=== PATIENT | male | born 1980 | race Hispanic/Latino ===

== ENCOUNTER 2020-08-07 18:09 | Emergency (ER) | payer SELFPAY ==
--- NOTE | 2020-08-07 21:56 | ER ---
Nurse's Notes [facility] Name: Abiodun Lara Age: 40 yrs Sex: Male : 1980 Arrival Date: 08/07/2020 Time: 18:11 Bed External Waiting Private MD: Fantasma Mora R Diagnosis: Presentation: 08/07 18:46 Chief complaint: Patient states: L sided CP for 2 weeks. No cough or fever. Coronavirus ll1 screen: Client denies travel out of the [place] in the last 14 days. At this time, the client does not indicate any symptoms associated with coronavirus-19. Ebola Screen: Patient denies travel to an Ebola-affected area in the 21 days before illness onset. Initial Sepsis Screen: Does the patient meet any 2 criteria? HR > 90 bpm. No. Patient's initial sepsis screen is negative. Does the patient have a suspected source of infection? No. Patient's initial sepsis screen is negative. Risk Assessment: Do you want to hurt yourself or someone else? Patient reports no desire to harm self or others. Onset of symptoms was July 24, 2020. 18:46 Method Of Arrival: Ambulatory ll1 18:46 Acuity: CHENTE 3 ll1 Historical: - Allergies: 18:48 No Known Allergies; ll1 - PMHx: 18:48 chronic back pain; Hypertension; ll1 - PSHx: 18:48 None; ll1 - Immunization history:: Flu vaccine is not up to date. - Social history:: Smoking status: Patient reports the use of cigarette tobacco products, denies chronic smoking, but will smoke occasionally. Vital Signs: 18:46 BP 143 / 104; Pulse 93; Resp 17; Temp 97.8; Pulse Ox 99% ; Weight 86.18 kg; Height 5 ll1 ft. 11 in. (180.34 cm); 18:46 Body Mass Index 26.50 (86.18 kg, 180.34 cm) ll1 ED Course: 18:11 Patient arrived in ED. mr 18:11 Fantasma Mora MD is Private Physician. mr 18:47 Triage completed. ll1 18:48 Arm band placed on. EKG completed in triage. Results shown to MD. ll1 Administered Medications: No medications were administered Outcome: 21:56 Patient left the ED. sg Signatures: Rick Lundberg RN RN sg Derrek, Holly mr Giovana Simmons, RN RN ll1
[2020-08-07 22:25] VITALS: BP 143/104; TEMP 97.8; O2SAT 99
--- NOTE | 2020-08-09 07:05 | EKG ---
Test Date: 2020-08-07 Test Time: 18:42:44 Hammerer: DEJA MEASUREMENT RESULTS: Intervals: Rate: 81 [place]: 120 QRSD: 120 QT: 360 QTc: 418 [place]: P: 53 [place]: 120 QRS: 83 T: 41 INTERPRETIVE STATEMENTS: Normal sinus rhythm Cannot rule out Inferior infarct, age undetermined Abnormal ECG Compared to ECG 02/20/2016 00:49:09 Myocardial infarct finding now present Electronically Signed On 08-09-20 07:02:38 CDT by Molina Mitchell
== END 2020-08-07 21:56 | disposition left against medical advice (07) ==
LOC: ER 18:09
DX: R07.9 Chest pain, unspecified (principal); Z53.21 Procedure and treatment not carried out due to patient leaving prior to being seen by health care provider
CPT/HCPCS: 93005; 99281

== ENCOUNTER 2020-08-14 08:25 | Emergency (ER) | payer SELFPAY ==
[2020-08-14 09:33] LABS: Basophils % 0.7 % (0-1.3); Hematocrit 39.4 % (39.6-49.0); Lymphocytes % 15.3 % (15.3-44.8); MPV 9.4 fL (7.6-11.3); RBC Red Blood Cell Count 4.03 M/uL (4.33-5.43)
--- NOTE | 2020-08-14 09:34 | RAD REPORT ---
EXAM DESCRIPTION: RAD - Chest Single View - 08/14/2020 9:06 am CLINICAL HISTORY: CHEST PAIN COMPARISON: None TECHNIQUE: AP portable chest image was obtained 08/14/2020 9:06 am . FINDINGS: Lungs are clear. Heart and vasculature are normal. No measurable pleural effusion and no p neumothorax. No acute bony abnormality seen. No acute aortic findings suspected. IMPRESSION: No acute cardiopulmonary process.
[2020-08-14 09:35] LABS: Protime INR 0.88
[2020-08-14 09:36] LABS: ALT/SGPT 84 U/L (12-78); AST/SGOT 72 U/L (15-37); Albumin 4.3 g/dL (3.4-5.0); Alkaline Phosphatase 81 U/L (45-117); BUN Blood Urea Nitrogen 12 mg/dL (7-18); Bicarbonate 25 mmol/L (21-32); Bilirubin Direct 0.3 mg/dL (0-0.2); Bilirubin Total 1.1 mg/dL (0.2-1.0); Glucose Level 96 mg/dL (74-106); Magnesium 1.6 mg/dL (1.8-2.4); NT PRO-BNP 69 pg/mL (<125); Potassium 3.4 mmol/L (3.5-5.1); Protein, Total 7.6 g/dL (6.4-8.2); Sodium Level 136 mmol/L (136-145); Troponin (Emerg Dept Use Only) < 0.02 ng/mL (0.0-0.045)
[2020-08-14] MEDS ORDERED: LORazepam 2 MG/ML VIAL ONE (10:09)
--- NOTE | 2020-08-14 12:20 | ER ---
Nurse's Notes [facility] Name: Abiodun Lara Age: 40 yrs Sex: Male : 1980 Arrival Date: 08/14/2020 Time: 08:26 Bed 2 Private MD: Fantasma Mora R Diagnosis: Anxiety disorder, unspecified Presentation: 08/14 08:40 Chief complaint: Patient states: has been having mid sternal chest pains, wakes him up iw at night and he feels his heart racing, breaks out in sweats , X 1 week, every other night , last night was bad. Coronavirus screen: At this time, the client does not indicate any symptoms associated with coronavirus-19. Ebola Screen: Patient negative for fever greater than or equal to 101.5 degrees Fahrenheit, and additional compatible Ebola Virus Disease symptoms Patient denies exposure to infectious person. Patient denies travel to an Ebola-affected area in the 21 days before illness onset. No symptoms or risks identified at this time. Initial Sepsis Screen: Does the patient meet any 2 criteria? No. Patient's initial sepsis screen is negative. Does the patient have a suspected source of infection? No. Patient's initial sepsis screen is negative. Risk Assessment: Do you want to hurt yourself or someone else? Patient reports no desire to harm self or others. Onset of symptoms was August 07, 2020. 08:40 Method Of Arrival: Ambulatory iw 08:40 Acuity: CHENTE 3 iw Historical: - Allergies: 08:42 No Known Allergies; iw - Home Meds: 08:42 lisinopril 20 mg Oral tab 1 tab once daily [Active]; iw - PMHx: 08:42 chronic back pain; Hypertension; iw - PSHx: 08:42 None; iw - Immunization history:: Adult Immunizations Adult Immunizations not up to date. - Social history:: Smoking status: Patient denies any tobacco usage or history of. Patient/guardian denies using alcohol, street drugs, The patient lives with family. - Family history:: not pertinent. Screenin:12 Abuse screen: Denies threats or abuse. Denies injuries from another. Nutritional jl7 screening: No deficits noted. Tuberculosis screening: No symptoms or risk factors identified. Fall Risk IV access (20 points). Total Shepherd Fall Scale indicates No Risk (0-24 pts). Assessment: 08:45 General: Appears uncomfortable, Behavior is calm, cooperative. Pain: Complains of pain aa5 in mid-sternal area Pain does not radiate. Pain currently is 8 out of 10 on a pain scale. Quality of pain is described as sharp, Is continuous. Neuro: Level of Consciousness is awake, alert, obeys commands, Oriented to person, place, time, situation. Cardiovascular: Reports chest pain, palpitations, Heart tones S1 S2 present Rhythm is sinus rhythm. Respiratory: Airway is patent Respiratory effort is even, unlabored, Respiratory pattern is regular, symmetrical. GI: Abdomen is round non-distended. : No signs and/or symptoms were reported regarding the genitourinary system. EENT: No signs and/or symptoms were reported regarding the EENT system. Derm: Skin is pink, warm \T\ dry. Musculoskeletal: Range of motion: intact in all extremities. 09:56 Reassessment: Patient is alert, oriented x 3, equal unlabored respirations, skin aa5 warm/dry/pink. 09:56 Cardiovascular: Reports chest pain, palpitations. aa5 11:30 Reassessment: Patient is alert, oriented x 3, equal unlabored respirations, skin aa5 warm/dry/pink. Patient denies pain at this time. Patient states feeling better. 11:30 Cardiovascular: Rhythm is Sinus tach at 108bpm. aa5 Vital Signs: 08:40 BP 146 / 103; Pulse 97; Resp 16; Temp 98.4; Pulse Ox 100% on R/A; Weight 86.18 kg; iw Height 5 ft. 11 in. (180.34 cm); 09:00 BP 154 / 99; Pulse 93; Resp 17; Pulse Ox 100% ; aa5 10:16 BP 137 / 92; Pulse 95; Resp 16 S; Pulse Ox 99% on R/A; aa5 11:49 BP 134 / 93; Pulse 98; Resp 16 S; Pulse Ox 99% on R/A; aa5 08:40 Body Mass Index 26.50 (86.18 kg, 180.34 cm) iw ED Course: 08:26 Patient arrived in ED. am2 08:26 Fantasma Mora MD is Private Physician. am2 08:41 Triage completed. iw 08:42 Arm band placed on. iw 08:46 Lorenzo Brennan MD is Attending Physician. ma2 08:46 Lissette Martinez, RN is Primary Nurse. aa5 08:50 Patient has correct armband on for positive identification. Bed in low position. Call aa5 light in reach. Side rails up X2. teletypesetter monitor on. Pulse ox on. NIBP on. 09:02 X-ray completed. Portable x-ray completed in exam room. Patient tolerated procedure sw well. 09:04 XRAY Chest (1 view) In Process Unspecified. EDMS 09:15 Warm blanket given. sr5 09:15 Initial lab(s) drawn, by me, sent to lab. EKG done, by ED staff, reviewed by Lorenzo Brennan MD. Inserted saline lock: 20 gauge in right antecubital area, using aseptic technique. Blood collected. 10:12 Patient maintains SpO2 saturation greater than 95% on room air. jl7 12:41 No provider procedures requiring assistance completed. IV discontinued, intact, jl7 bleeding controlled, No redness/swelling at site. Pressure dressing applied. Administered Medications: 09:56 Drug: Ativan 1 mg Route: IVP; Site: right antecubital; jl7 11:30 Follow up: Response: Anxiety decreased aa5 Outcome: 12:19 Discharge ordered by . ma2 12:41 Discharged to home ambulatory. jl7 12:41 Condition: stable 12:41 Discharge instructions given to patient, Instructed on discharge instructions, follow up and referral plans. medication usage, Demonstrated understanding of instructions, follow-up care, medications, Prescriptions given X 1. 12:41 Patient left the ED. jl7 Signatures: Dispatcher [employer] EDAZ Madelin Lo RN RN Lissette Martinez, RN RN aa5 Irene Cool Sam RN RN sr5 Jie Galvan RN RN jl7 Lori Kuhn am2 Lorenzo Brennan MD MD ma2 Corrections: (The following items were deleted from the chart) 10:16 09:56 BP 154 / 99; Pulse 93bpm; Resp 17bpm; Pulse Ox 100%; jl7 aa5
--- NOTE | 2020-08-14 12:20 | EDPHYS ---
Physician Documentation [facility] Name: Abiodun Lara Age: 40 yrs Sex: Male : 1980 Arrival Date: 08/14/2020 Time: 08:26 Bed 2 Private MD: Fantasma Mora R ED Physician Lorenzo Brennan HPI: 08/14 09:57 This 40 yrs old Male presents to ER via Ambulatory with complaints of Chest ma2 Pain. 09:57 This 40 yrs old Male presents to ER via Ambulatory with complaints of episdos ma2 of sob. 09:57 Onset: gradually, 1 day(s) ago. Associated signs and symptoms: Pertinent negatives: ma2 cough, dizziness, lower extremity pain, lower extremity swelling. Severity of pain: At its worst the pain was moderate. this is 40 yo male with htn, smokes mj daily, alcohol daily and cocaine occasionally, he is here with anxiety and shortness of breath, he states he had chest pain 3 days ago with sob that was stabbing and lasts for few seconds. he has no symptoms at this time he states he has increased stress at home and work last 2 days, no chest pain in last 24 hrs... he never had cardiac issues. Historical: - Allergies: 08:42 No Known Allergies; iw - Home Meds: 08:42 lisinopril 20 mg Oral tab 1 tab once daily [Active]; iw - PMHx: 08:42 chronic back pain; Hypertension; iw - PSHx: 08:42 None; iw - Immunization history:: Adult Immunizations Adult Immunizations not up to date. - Social history:: Smoking status: Patient denies any tobacco usage or history of. Patient/guardian denies using alcohol, street drugs, The patient lives with family. - Family history:: not pertinent. ROS: 09:57 Constitutional: Negative for fever, chills, and weight loss. ma2 09:57 All other systems are negative. Exam: 09:57 Constitutional: This is a well developed, well nourished patient who is awake, alert, ma2 and in no acute distress. Neck: Trachea midline, no thyromegaly or masses palpated, and no cervical lymphadenopathy. Supple, full range of motion without nuchal rigidity, or vertebral point tenderness. No Meningismus. Chest/axilla: Normal chest wall appearance and motion. Nontender with no deformity. No lesions are appreciated. Cardiovascular: Regular rate and rhythm with a normal S1 and S2. No gallops, murmurs, or rubs. Normal PMI, no JVD. No pulse deficits. Respiratory: Lungs have equal breath sounds bilaterally, clear to auscultation and percussion. No rales, rhonchi or wheezes noted. No increased work of breathing, no retractions or nasal flaring. Abdomen/GI: Soft, non-tender, with normal bowel sounds. No distension or tympany. No guarding or rebound. No evidence of tenderness throughout. Back: No spinal tenderness. No costovertebral tenderness. Full range of motion. MS/ Extremity: Pulses equal, no cyanosis. Neurovascular intact. Full, normal range of motion. Neuro: Awake and alert, GCS 15, oriented to person, place, time, and situation. Cranial nerves II-XII grossly intact. Motor strength 5/5 in all extremities. Sensory grossly intact. Cerebellar exam normal. Normal gait. Vital Signs: 08:40 BP 146 / 103; Pulse 97; Resp 16; Temp 98.4; Pulse Ox 100% on R/A; Weight 86.18 kg; iw Height 5 ft. 11 in. (180.34 cm); 09:00 BP 154 / 99; Pulse 93; Resp 17; Pulse Ox 100% ; aa5 10:16 BP 137 / 92; Pulse 95; Resp 16 S; Pulse Ox 99% on R/A; aa5 11:49 BP 134 / 93; Pulse 98; Resp 16 S; Pulse Ox 99% on R/A; aa5 08:40 Body Mass Index 26.50 (86.18 kg, 180.34 cm) iw MDM: 08:46 Patient medically screened. ma2 09:57 Differential diagnosis: gastroesophageal reflux disease (GERD), pleurisy, pneumonia, ma2 pneumothorax. HEART Score: History: Slightly Suspicious (0), ECG: Normal (0), Age: < or = 45 years (0), Risk Factors: 1 or 2 risk factors (1), Troponin: < or = 1 x Normal Limit (0), Total Score = 1. KAE Risk Score: TOTAL SCORE = 0. Data reviewed: vital signs, nurses notes, EMS record, jail records. Counseling: I had a detailed discussion with the patient and/or guardian regarding: the historical points, exam findings, and any diagnostic results supporting the discharge/admit diagnosis, the presence of at least one elevated blood pressure reading (>120/80) during this emergency department visit, the need for outpatient follow up. ED course: grace palomooer zero and heart score 1 he has no chest pain in last 24 hrs. will get 2 troponin 3 hrs apart . 10:02 ED course: i explained to him he needs stress test and to see pcp in hte next 2 days . 08/14 08:46 Order name: Basic Metabolic Panel; Complete Time: 11:49 08/14 08:46 Order name: CBC with Diff; Complete Time: 11:49 08/14 08:46 Order name: LFT's; Complete Time: 11:49 08/14 08:46 Order name: Magnesium; Complete Time: 11:49 08/14 08:46 Order name: NT PRO-BNP; Complete Time: 11:49 08/14 08:46 Order name: PT-INR; Complete Time: 11:49 08/14 08:46 Order name: Troponin (emerg Dept Use Only); Complete Time: 11:49 08/14 08:46 Order name: XRAY Chest (1 view); Complete Time: 09:36 08/14 08:46 Order name: EKG; Complete Time: 08:47 08/14 08:46 Order name: Cardiac monitoring; Complete Time: 08:52 08/14 08:46 Order name: EKG - Nurse/Tech; Complete Time: 08:52 08/14 08:46 Order name: IV Saline Lock; Complete Time: 09:14 08/14 11:37 Order name: Troponin (emerg Dept Use Only): at 1200; Complete Time: 12:19 08/14 08:46 Order name: Labs collected and sent; Complete Time: 09:14 08/14 08:46 Order name: O2 Per Protocol; Complete Time: 08:52 08/14 08:46 Order name: O2 Sat Monitoring; Complete Time: 08:52 ma2 Administered Medications: 09:56 Drug: Ativan 1 mg Route: IVP; Site: right antecubital; jl7 11:30 Follow up: Response: Anxiety decreased aa5 Disposition: 08/14/20 12:19 Discharged to Home. Impression: Anxiety disorder, unspecified. - Condition is Stable. - Discharge Instructions: Generalized Anxiety Disorder. - Prescriptions for buspirone 5 mg Oral tablet - take 1 tablet by ORAL route 3 times per day; 90 tablet. - Medication Reconciliation Form, Thank You Letter, Antibiotic Education, Prescription Opioid Use form. - Follow up: Private Physician; When: Tomorrow; Reason: If symptoms return. Signatures: Dispatcher [employer] EDMadelin Ch RN BAKARI iw Jie Galvan RN RN jl7 Lorenzo Brennan MD MD ma2 Lissette Martinez RN aa5 Corrections: (The following items were deleted from the chart) 12:41 12:19 08/14/2020 12:19 Discharged to Home. Impression: Anxiety disorder, unspecified. jl7 Condition is Stable. Prescriptions for buspirone 5 mg Oral tablet - take 1 tablet by ORAL route 3 times per day; 90 tablet. and Forms are Medication Reconciliation Form, Thank You Letter, Antibiotic Education, Prescription Opioid Use. Follow up: Private Physician; When: Tomorrow; Reason: If symptoms return. ma2
[2020-08-14 13:09] VITALS: TEMP 98.4
[2020-08-14 13:13] VITALS: O2SAT 99
[2020-08-14 13:25] VITALS: BP 134/93
--- NOTE | 2020-08-15 12:57 | EKG ---
Test Date: 2020-08-14 Test Time: 08:53:13 Band Attacher: UMANG MEASUREMENT RESULTS: Intervals: Rate: 89 [place]: 124 QRSD: 116 QT: 362 QTc: 440 [place]: P: 74 [place]: 124 QRS: 79 T: 69 INTERPRETIVE STATEMENTS: Normal sinus rhythm Normal ECG Compared to ECG 08/07/2020 18:42:44 Myocardial infarct finding no longer present Electronically Signed On 08-15-20 12:52:57 CDT by Molina Mitchell
== END 2020-08-14 12:41 | disposition home or self-care (01) ==
LOC: ER 08:25
DX: F41.9 Anxiety disorder, unspecified (principal); I10 Essential (primary) hypertension
CPT/HCPCS: 36415; 71045; 80048; 80076; 83735; 83880; 84484; 85025; 85610; 93005; 96374; 99285

== ENCOUNTER 2020-10-04 00:57 | Emergency (ER) | payer SELFPAY ==
--- NOTE | 2020-10-04 03:25 | ER ---
Nurse's Notes [facility] Name: Abiodun Lara Age: 40 yrs Sex: Male : 1980 Arrival Date: 10/04/2020 Time: 01:03 Bed Waiting Private MD: Diagnosis: Presentation: 10/04 01:40 Chief complaint: Patient states: "I have been having chest pain continuously since my bb last visit here a month ago and my anxiety is really bad" pt states he has not followed up with a physician because he does not have insurance. Initial Sepsis Screen: Does the patient meet any 2 criteria? No. Patient's initial sepsis screen is negative. Does the patient have a suspected source of infection? No. Patient's initial sepsis screen is negative. Risk Assessment: Do you want to hurt yourself or someone else? Patient reports no desire to harm self or others. 01:50 Coronavirus screen: Client denies travel out of the [place] in the last 14 days. At this rr5 time, the client does not indicate any symptoms associated with coronavirus-19. Ebola Screen: Patient negative for fever greater than or equal to 101.5 degrees Fahrenheit, and additional compatible Ebola Virus Disease symptoms Patient denies exposure to infectious person. Onset of symptoms was October 04, 2020. 01:50 Method Of Arrival: Ambulatory rr5 01:50 Acuity: CHENTE 3 rr5 Triage Assessment: 01:40 General: Appears in no apparent distress. Behavior is anxious. Pain: Complains of pain bb in chest Pain currently is 8 out of 10 on a pain scale. Neuro: Level of Consciousness is awake, alert, obeys commands, Oriented to person, place, time, situation. Cardiovascular: Capillary refill < 3 seconds Patient's skin is warm and dry. Respiratory: Respiratory effort is even, unlabored, Respiratory pattern is regular. GI: No signs and/or symptoms were reported involving the gastrointestinal system. Derm: Skin is pink, warm \\T\\ dry. Musculoskeletal: Circulation, motion, and sensation intact. Historical: - Home Meds: :58 lisinopril 20 mg Oral tab 1 tab once daily [Active]; Cornell Oral [Active]; Soma Oral rr5 [Active]; - PMHx: :58 chronic back pain; Hypertension; rr5 - Immunization history:: Adult Immunizations up to date. - Social history:: Smoking status: unknown. Vital Signs: 01:40 BP 143 / 102; Pulse 89; Resp 16 S; Temp 98.3(O); Pulse Ox 97% on R/A; Weight 81.65 kg (R); Height 5 ft. 11 in. (180.34 cm) (R); Pain 8/10; 01:40 Body Mass Index 25.10 (81.65 kg, 180.34 cm) ED Course: 01:03 Patient arrived in ED. bp1 01:57 Triage completed. rr5 01:58 Arm band placed on right wrist. rr5 02:09 Lencho Zee MD is Attending Physician. geovanny Administered Medications: No medications were administered Outcome: 03:24 Patient left the ED. bb Signatures: Lencho Zee MD MD cha Ballard, Brenda, RN RN bb Jeramie Shaver, RN RN rr5 Melissa Vidal bp1
[2020-10-04 03:35] VITALS: BP 143/102; TEMP 98.3; O2SAT 97
--- NOTE | 2020-10-04 08:42 | EKG ---
Test Date: 2020-10-04 Test Time: 01:40:45 Solar Design Engineer: RR MEASUREMENT RESULTS: Intervals: Rate: 84 [place]: 124 QRSD: 124 QT: 356 QTc: 420 [place]: P: 72 [place]: 124 QRS: 82 T: 75 INTERPRETIVE STATEMENTS: Normal sinus rhythm Nonspecific intraventricular conduction delay Borderline ECG Compared to ECG 08/14/2020 08:53:13 Intraventricular conduction delay now present Electronically Signed On 10-04-20 08:41:09 CDT by Molina Mitchell
== END 2020-10-04 03:24 | disposition left against medical advice (07) ==
LOC: ER 00:57
DX: Z53.21 Procedure and treatment not carried out due to patient leaving prior to being seen by health care provider (principal)
CPT/HCPCS: 93005; 99281

== ENCOUNTER 2021-01-14 19:01 | Emergency (ER) | payer SELFPAY ==
[2021-01-14] MEDS ORDERED: hydrOXYzine HCL 25 MG TAB ONE (22:20)
[2021-01-14] MEDS ORDERED: KETOROLAC 30 MG/ML INJ ONE (22:21)
--- NOTE | 2021-01-14 22:45 | EDPHYS ---
Physician Documentation [facility] Name: Abiodun Lara Age: 40 yrs Sex: Male : 1980 Arrival Date: 01/14/2021 Time: 19:04 Bed 10 Private MD: ED Physician Shiv Crandall HPI: 01/14 21:39 This 40 yrs old Male presents to ER via Wheelchair with complaints of pm1 Weakness, Fever, Headache. 21:39 The patient presents to the emergency department with weakness of the entire body, pm1 generalized weakness, Subjective fever and headache. Onset: The symptoms/episode began/occurred 3 week(s) ago. Context: Patient is fearful of having Covid. Patient with history of anxiety. Seen by his PCP and prescribed clonazepam, however patient did not like the way it made him feel and has stopped taking any medications for his anxiety. Associated signs and symptoms: Pertinent positives: Anxiety. Severity of symptoms: in the emergency department the symptoms are unchanged. Patient's baseline: Neuro: alert and fully oriented, Motor: no deficits, Ambulation: walks without assistance. The patient has been recently seen by a physician: the patient's primary care provider, For anxiety. Historical: - Allergies: 19:28 No Known Allergies; ss - PMHx: 19:28 chronic back pain; Hypertension; Anxiety; ss - PSHx: 19:28 None; ss - Immunization history:: Client reports having NOT received the Covid vaccine. - Social history:: Smoking status: Patient denies any tobacco usage or history of. ROS: 21:39 Cardiovascular: Negative for chest pain, palpitations, and edema, Respiratory: Negative pm1 for shortness of breath, cough, wheezing, and pleuritic chest pain, Abdomen/GI: Negative for abdominal pain, nausea, vomiting, diarrhea, and constipation, Back: Negative for injury and pain, MS/Extremity: Negative for injury and deformity, Skin: Negative for injury, rash, and discoloration. 21:39 Constitutional: Positive for fever, Negative for poor PO intake. 21:39 Neuro: Positive for headache. 21:39 Psych: Positive for anxiety. 21:39 All other systems are negative. Exam: 21:39 Constitutional: This is a well developed, well nourished patient who is awake, alert, pm1 and in no acute distress. Head/Face: Normocephalic, atraumatic. 21:39 Skin: Warm, dry with normal turgor. Normal color with no rashes, no lesions, and no evidence of cellulitis. MS/ Extremity: Pulses equal, no cyanosis. Neurovascular intact. Full, normal range of motion. 21:39 Cardiovascular: Exam negative for acute changes, Rate: normal, Rhythm: regular, Pulses: no pulse deficits are appreciated. 21:39 Respiratory: Exam negative for acute changes, respiratory distress, shortness of breath, Breath sounds: are clear throughout. 21:39 Neuro: Exam negative for acute changes, Orientation: is normal, Mentation: is normal, Motor: is normal, moves all fours. 21:39 Psych: Behavior/mood is anxious, Affect is animated, Oriented to person, place, time. Vital Signs: 19:26 Height 5 ft. 11 in. (180.34 cm); Pain 9/10; ss 19:28 BP 124 / 89; Pulse 90; Resp 18; Temp 98.9(TE); Pulse Ox 99% ; ss 22:57 BP 125 / 87; Pulse 88; Temp 97.7; Pulse Ox 99% on R/A; dh4 22:59 BP 122 / 80; Pulse 86; Resp 16 S; Temp 97.7(O); Pulse Ox 97% on R/A; bb MDM: 21:39 Patient medically screened. pm1 22:44 Data reviewed: vital signs. Data interpreted: Pulse oximetry: on room air is 99 %. pm1 Interpretation: normal. Counseling: I had a detailed discussion with the patient and/or guardian regarding: the historical points, exam findings, and any diagnostic results supporting the discharge/admit diagnosis, lab results, the need for outpatient follow up, a family practitioner, a psychiatrist, to return to the emergency department if symptoms worsen or persist or if there are any questions or concerns that arise at home. 01/15 04:14 ED course: Patient reports improvement in anxiety with hydroxyzine. Therefore will pm1 discharge patient home with the medication. Recommend follow-up with PCP or psychiatry for definitive treatment of his anxiety. 01/14 20:57 Order name: SARS-COV-2 RT PCR; Complete Time: 21:26 EDMS Administered Medications: 01/14 22:09 Drug: Ketorolac 60 mg Route: IM; Site: right gluteus; bb 23:00 Follow up: Response: No adverse reaction bb 22:09 Drug: hydrOXYzine 50 mg Route: PO; bb 23:00 Follow up: Response: No adverse reaction bb Disposition: 01/15 05:13 Co-signature as Attending Physician, Shiv Crandall MD. [email or web address] Disposition Summary: 01/14/21 22:45 Discharge Ordered Location: Home pm1 Problem: new pm1 Symptoms: have improved pm1 Condition: Stable pm1 Diagnosis - Acute stress reaction pm1 Followup: pm1 - With: Emergency Department - When: As needed - Reason: Worsening of condition Followup: pm1 - With: Private Physician - When: 2 - 3 days - Reason: Recheck today's complaints, Continuance of care, Re-evaluation by your physician Discharge Instructions: - Discharge Summary Sheet pm1 - Stress, Adult pm1 - Generalized Anxiety Disorder, Adult pm1 - Managing Anxiety, Adult pm1 Forms: - Medication Reconciliation Form pm1 - Thank You Letter pm1 - Antibiotic Education pm1 - Prescription Opioid Use pm1 Prescriptions: - Hydroxyzine HCl 50 mg Oral Tablet - take 1 tablet by ORAL route every 8 hours As needed; 20 tablet; Refills: 0, pm1 Product Selection Permitted Signatures: Dispatcher [employer] Iris Ureña RN RN bb Smirch, Shelby, RN RN ss Des Sheppard, DISPERSION MIXER DISPERSION MIXER pm1 Shiv Crandall MD MD mh7 Corrections: (The following items were deleted from the chart) 01/14 19:49 19:30 CORONAVIRUS+MR.LAB.BRZ ordered. EDMS EDMS
--- NOTE | 2021-01-14 22:45 | ER ---
Nurse's Notes [facility] Name: Abiodun Lara Age: 40 yrs Sex: Male : 1980 Arrival Date: 01/14/2021 Time: 19:04 Bed 10 Private MD: Diagnosis: Acute stress reaction Presentation: 01/14 19:26 Chief complaint: Spouse and/or significant other states: "He has been sick for 3 weeks ss now" Pt c/o decreased appetite, fever, dizziness, headache and fatigue. Coronavirus screen: Client denies travel out of the [place] in the last 14 days. Ebola Screen: Patient denies exposure to infectious person. Patient denies travel to an Ebola-affected area in the 21 days before illness onset. Onset of symptoms was December 24, 2020. 19:26 Method Of Arrival: Wheelchair ss 19:26 Acuity: CHENTE 3 ss Historical: - Allergies: 19:28 No Known Allergies; ss - PMHx: 19:28 chronic back pain; Hypertension; Anxiety; ss - PSHx: 19:28 None; ss - Immunization history:: Client reports having NOT received the Covid vaccine. - Social history:: Smoking status: Patient denies any tobacco usage or history of. Screenin:49 Abuse screen: Denies threats or abuse. Nutritional screening: No deficits noted. bb Tuberculosis screening: No symptoms or risk factors identified. Fall Risk None identified. Assessment: 21:49 General: Appears in no apparent distress. Behavior is calm, cooperative, listless. bb Pain: Complains of pain in headache. Neuro: Level of Consciousness is awake, alert, obeys commands, Oriented to person, place, time, situation. Cardiovascular: Heart tones S1 S2 present Capillary refill < 3 seconds Patient's skin is warm and dry. Respiratory: Airway is patent Respiratory effort is even, unlabored, Respiratory pattern is regular, Breath sounds are clear bilaterally. GI: No signs and/or symptoms were reported involving the gastrointestinal system. Derm: Skin is pink, warm \\T\\ dry. Musculoskeletal: Circulation, motion, and sensation intact. 22:59 Reassessment: Patient is alert, oriented x 3, equal unlabored respirations, skin bb warm/dry/pink. pt verbalized understanding of and agrees to plan of care discharge instructions given pt ambulated with steady gait to exit Patient states feeling better. Vital Signs: 19:26 Height 5 ft. 11 in. (180.34 cm); Pain 9/10; ss 19:28 BP 124 / 89; Pulse 90; Resp 18; Temp 98.9(TE); Pulse Ox 99% ; ss 22:57 BP 125 / 87; Pulse 88; Temp 97.7; Pulse Ox 99% on R/A; dh4 22:59 BP 122 / 80; Pulse 86; Resp 16 S; Temp 97.7(O); Pulse Ox 97% on R/A; bb ED Course: 19:04 Patient arrived in ED. mr 19:28 Triage completed. ss 19:28 Arm band placed on right wrist. ss 21:15 Des Sheppard NP is PHCP. pm1 21:15 Shiv Crandall MD is Attending Physician. pm1 21:46 Iris Cavazos RN is Primary Nurse. bb 21:49 Patient has correct armband on for positive identification. Call light in reach. bb 23:00 No provider procedures requiring assistance completed. Patient did not have IV access bb during this emergency room visit. Administered Medications: 22:09 Drug: Ketorolac 60 mg Route: IM; Site: right gluteus; bb 23:00 Follow up: Response: No adverse reaction bb 22:09 Drug: hydrOXYzine 50 mg Route: PO; bb 23:00 Follow up: Response: No adverse reaction bb Outcome: 22:45 Discharge ordered by . pm1 23:00 Discharged to home ambulatory. bb 23:00 Condition: stable 23:00 Discharge instructions given to patient, Instructed on discharge instructions, follow up and referral plans. medication usage, Demonstrated understanding of instructions, follow-up care, medications, Prescriptions given X 1. 23:01 Patient left the ED. bb Signatures: Holly Anglin Iris Cavazos, RN RN bb Jovita Thompson RN RN Des Sheppard NP EROSION CONTROL SPECIALIST pm1 Umer Denise [facility]
[2021-01-14 23:08] VITALS: TEMP 97.7
[2021-01-14 23:09] VITALS: BP 122/80; O2SAT 97
== END 2021-01-14 23:01 | disposition home or self-care (01) ==
LOC: ER 19:01
DX: F43.0 Acute stress reaction (principal); I10 Essential (primary) hypertension; Z20.822 Contact with and (suspected) exposure to COVID-19
CPT/HCPCS: 96372; 99283; U0003

== ENCOUNTER 2021-02-02 12:39 | Emergency (ER) | payer SELFPAY ==
[2021-02-02] MEDS ORDERED: MORPHINE 4 MG/ML SYR ONE (13:51)
[2021-02-02] MEDS ORDERED: ONDANSETRON 4 MG/2 ML VIAL ONE (13:51)
[2021-02-02] MEDS ORDERED: NA CHLORIDE 0.9% 1,000 ML ONE ×2 (13:51→17:00)
--- NOTE | 2021-02-02 14:04 | RAD REPORT ---
EXAM DESCRIPTION: Shruti Single View02/02/2021 1:58 pm CLINICAL HISTORY: Weakness COMPARISON: July 2020 FINDINGS: The lungs appear clear of acute infiltrate. The heart is normal size IMPRESSION: No acute abnormalities displayed
[2021-02-02 14:13] LABS: Basophils % 2.2 % (0-1.3); Hematocrit 39.7 % (39.6-49.0); Lymphocytes % 33.9 % (15.3-44.8); RBC Red Blood Cell Count 3.94 M/uL (4.33-5.43)
[2021-02-02 14:14] LABS: Protime INR 0.86
[2021-02-02 14:43] LABS: ALT/SGPT 445 U/L (12-78); Albumin 4.6 g/dL (3.4-5.0); Alkaline Phosphatase 93 U/L (45-117); BUN Blood Urea Nitrogen 11 mg/dL (7-18); Bicarbonate 22 mmol/L (21-32); Bilirubin Direct 0.1 mg/dL (0-0.2); Bilirubin Total 0.5 mg/dL (0.2-1.0); Creatine Phosphokinase 142 U/L (39-308); Glucose Level 74 mg/dL (74-106); Magnesium 1.9 mg/dL (1.8-2.4); NT PRO-BNP 9 pg/mL (<125); Potassium 3.7 mmol/L (3.5-5.1); Protein, Total 8.5 g/dL (6.4-8.2); Sodium Level 142 mmol/L (136-145); Troponin (Emerg Dept Use Only) < 0.02 ng/mL (0.0-0.045)
[2021-02-02 14:46] LABS: AST/SGOT 492 U/L (15-37)
--- NOTE | 2021-02-02 16:03 | RAD REPORT ---
EXAM DESCRIPTION: CT - Chest Abdomen Pelvis W Cont - 02/02/2021 3:37 pm CLINICAL HISTORY: Chest and abdominal pain COMPARISON: None TECHNIQUE: Computed axial tomography of the chest, abdomen and pelvis was obtained. 100 cc Isovue-30 0 was administered intravenously. Oral contrast was not requested. This limits evaluation of bowel All CT scans are performed using dose optimization technique as appropriate and may include automated exposure control or mA/KV adjustment according to patient size. FINDINGS: The lungs are clear. No mediastinal or hilar lymphadenopathy A pleural effusion is not present. A pericardial effusion is not noted Fatty liver. Mild gallbladder distention Spleen, pancreas, and adrenals appear unremarkable. Tiny bilateral renal calculi. No hydronephrosis. No evidence of diverticulitis. Normal appendix IMPRESSION: Tiny bilateral nonobstructing renal calculi Mild gallbladder distention
--- NOTE | 2021-02-02 16:06 | RAD REPORT ---
EXAM DESCRIPTION: US - Abdomen Exam Limited - 02/02/2021 3:22 pm CLINICAL HISTORY: Abdominal pain. COMPARISON: None. FINDINGS: Mild gallbladder distention The gallbladder wall is not thickened. A gallstone is not seen. The biliary tree is normal caliber. IMPRESSION: Mild gallbladder distention
--- NOTE | 2021-02-02 17:26 | ER ---
Nurse's Notes [facility] Name: Abiodun Lara Age: 41 yrs Sex: Male : 1980 Arrival Date: 02/02/2021 Time: 12:42 Bed 6 Private MD: Diagnosis: Acute Pancreatitis Presentation: 02/02 12:43 Chief complaint: EMS states: Generalized weakness, nausea, and body aches x 1 week. hb Coronavirus screen: Client presents with at least one sign or symptom that may indicate coronavirus-19. Standard/surgical mask placed on the client. Provider contacted for isolation considerations. Ebola Screen: No symptoms or risks identified at this time. Initial Sepsis Screen: Does the patient meet any 2 criteria? No. Patient's initial sepsis screen is negative. Does the patient have a suspected source of infection? No. Patient's initial sepsis screen is negative. Risk Assessment: Do you want to hurt yourself or someone else? Patient reports no desire to harm self or others. Onset of symptoms was January 26, 2021. 12:43 Method Of Arrival: EMS: [facility] 12:43 Acuity: CHENTE 3 hb Triage Assessment: 12:44 General: Appears in no apparent distress. uncomfortable, Behavior is calm, cooperative. hb Pain: Pain currently is 10 out of 10 on a pain scale. EENT: No signs and/or symptoms were reported regarding the EENT system. Neuro: Level of Consciousness is awake, alert, obeys commands, Oriented to person, place, time, situation. Cardiovascular: Patient's skin is warm and dry. Rhythm is sinus bradycardia. Respiratory: Respiratory effort is even, unlabored, Respiratory pattern is regular, symmetrical. GI: Reports nausea. : No signs and/or symptoms were reported regarding the genitourinary system. Derm: Skin is pink, warm \T\ dry. Musculoskeletal: Reports body aches. Historical: - Allergies: 12:44 No Known Drug Allergies; hb - Home Meds: 12:44 lisinopril 20 mg Oral tab 1 tab once daily [Active]; [place] Oral [Active]; Soma Oral hb [Active]; - PMHx: 12:44 Anxiety; chronic back pain; Hypertension; hb - Immunization history:: Client reports having NOT received the Covid vaccine. - Social history:: Smoking status: Patient denies any tobacco usage or history of. Screenin:45 Abuse screen: Denies threats or abuse. Denies injuries from another. Nutritional hb screening: No deficits noted. Tuberculosis screening: No symptoms or risk factors identified. Fall Risk None identified. Assessment: 12:45 General: see triage. hb 13:52 Reassessment: Patient appears in no apparent distress at this time. Patient and/or hb family updated on plan of care and expected duration. Pain level reassessed. Patient is alert, oriented x 3, equal unlabored respirations, skin warm/dry/pink. 14:56 Reassessment: Patient appears in no apparent distress at this time. Patient and/or hb family updated on plan of care and expected duration. Pain level reassessed. Patient is alert, oriented x 3, equal unlabored respirations, skin warm/dry/pink. 16:33 Reassessment: Patient appears in no apparent distress at this time. Patient and/or hb family updated on plan of care and expected duration. Pain level reassessed. Patient is alert, oriented x 3, equal unlabored respirations, skin warm/dry/pink. 18:19 Reassessment: Patient appears in no apparent distress at this time. Patient and/or hb family updated on plan of care and expected duration. Pain level reassessed. Patient is alert, oriented x 3, equal unlabored respirations, skin warm/dry/pink. Vital Signs: 12:43 BP 131 / 102; Pulse 94; Resp 16; Temp 98.4; Pulse Ox 93% on R/A; Weight 81.65 kg; hb Height 5 ft. 8 in. (172.72 cm); Pain 10/10; 13:52 BP 114 / 81; Pulse 83; Resp 15; Pulse Ox 100% ; hb 14:57 BP 119 / 70; Pulse 98; Resp 17; Pulse Ox 97% on R/A; hb 16:51 BP 124 / 87; Pulse 90; Resp 15; Pulse Ox 98% on R/A; hb 12:43 Body Mass Index 27.37 (81.65 kg, 172.72 cm) ED Course: 12:42 Patient arrived in ED. hb 12:44 Triage completed. hb 12:44 Arm band placed on. hb 12:45 Patient has correct armband on for positive identification. Bed in low position. Call light in reach. 12:53 Getachew West PA is PHCP. [facility] 12:53 Juvenal Dumont MD is Attending Physician. [facility] 13:23 Aide Aiken, RN is Primary Nurse. hb 13:35 Inserted saline lock: 20 gauge in left forearm, using aseptic technique. Blood hb collected. 13:58 XRAY Chest (1 view) In Process Unspecified. EDMS 15:22 US Abdomen Limited In Process Unspecified. EDMS 15:37 CT Chest, Abdomen, Pelvis - W/Contrast In Process Unspecified. EDMS 17:24 Rivera Claudio MD is Referral Physician. [facility] 18:19 No provider procedures requiring assistance completed. IV discontinued, intact, hb bleeding controlled, No redness/swelling at site. Administered Medications: 13:41 Drug: NS 0.9% 1000 ml Route: IV; Rate: 1 bolus; Site: right forearm; hb 14:45 Follow up: Response: No adverse reaction; IV Status: Completed infusion; IV Intake: hb 1000ml 13:41 Drug: morphine 4 mg Route: IVP; Site: right forearm; hb 14:30 Follow up: Response: No adverse reaction hb 13:41 Drug: Zofran (Ondansetron) 4 mg Route: IVP; Site: right forearm; hb 14:30 Follow up: Response: No adverse reaction hb 16:15 Drug: NS 0.9% 1000 ml Route: IV; Rate: 1 bolus; Site: right antecubital; hb Intake: 14:45 IV: 1000ml; Total: 1000ml. hb Outcome: 17:25 Discharge ordered by MD. [facility] 18:19 Discharged to home ambulatory. hb 18:19 Condition: good 18:19 Discharge instructions given to patient, Instructed on discharge instructions, follow up and referral plans. medication usage, Demonstrated understanding of instructions, follow-up care, medications, Prescriptions given X 1. 18:21 Patient left the ED. hb Signatures: Dispatcher [employer] EDCA Getachew West PA PA [facility] Aide Aiken, RN RN hb
--- NOTE | 2021-02-02 17:26 | EDPHYS ---
Physician Documentation [facility] Name: Abiodun Lara Age: 41 yrs Sex: Male : 1980 Arrival Date: 02/02/2021 Time: 12:42 Bed 6 Private MD: ED Physician Juvenal Dumont HPI: 02/02 13:13 This 41 yrs old Male presents to ER via EMS with complaints of General jmm Weakness, Nausea, Body Aches. 13:13 The patient presents with abdominal pain. Onset: The symptoms/episode began/occurred jmm gradually, 1 week(s) ago. This is a 41-year-old male with history of chronic back pain, hypertension that presents emerged part with complaints of generalized abdominal pain, body aches. Patient does admit to drinking alcohol daily. Denies vomiting or diarrhea.. Historical: - Allergies: 12:44 No Known Drug Allergies; hb - Home Meds: 12:44 lisinopril 20 mg Oral tab 1 tab once daily [Active]; [place] Oral [Active]; Soma Oral hb [Active]; - PMHx: 12:44 Anxiety; chronic back pain; Hypertension; hb - Immunization history:: Client reports having NOT received the Covid vaccine. - Social history:: Smoking status: Patient denies any tobacco usage or history of. ROS: 13:13 Constitutional: Positive for body aches. jmm 13:13 Abdomen/GI: Positive for abdominal pain. 13:13 All other systems are negative. Exam: 13:13 Head/Face: atraumatic. Eyes: EOMI, no conjunctival erythema appreciated ENT: Moist jmm Mucus Membranes Neck: Trachea midline, Supple Chest/axilla: Normal chest wall appearance and motion. Cardiovascular: Regular rate and rhythm. No edema appreciated Respiratory: Normal respirations, no respiratory distress appreciated Abdomen/GI: Non distended, soft Back: Normal ROM Skin: General appearance color normal MS/ Extremity: Moves all extremities, no obvious deformities appreciated, no edema noted to the lower extremities Neuro: Awake and alert, normal gait Psych: Behavior is normal, Mood is normal, Patient is cooperative and pleasant 13:13 Constitutional: The patient appears alert, awake, anxious, uncomfortable. Vital Signs: 12:43 BP 131 / 102; Pulse 94; Resp 16; Temp 98.4; Pulse Ox 93% on R/A; Weight 81.65 kg; hb Height 5 ft. 8 in. (172.72 cm); Pain 10/10; 13:52 BP 114 / 81; Pulse 83; Resp 15; Pulse Ox 100% ; hb 14:57 BP 119 / 70; Pulse 98; Resp 17; Pulse Ox 97% on R/A; hb 16:51 BP 124 / 87; Pulse 90; Resp 15; Pulse Ox 98% on R/A; hb 12:43 Body Mass Index 27.37 (81.65 kg, 172.72 cm) hb MDM: 13:13 Patient medically screened. [facility] 17:23 Data reviewed: vital signs, nurses notes. Counseling: I had a detailed discussion with [facility] the patient and/or guardian regarding: the historical points, exam findings, and any diagnostic results supporting the discharge/admit diagnosis, lab results, radiology results, the need for outpatient follow up, to return to the emergency department if symptoms worsen or persist or if there are any questions or concerns that arise at home. ED course: Patient is alert nontoxic in appearance in the ED. Patient advised to follow-up with GI for further evaluation and advised to have a clear liquid diet. Patient is otherwise given strict return precautions. Patient understood and agrees plan of care.. 02/02 13:14 Order name: Basic Metabolic Panel [facility] 02/02 13:14 Order name: CBC with Diff; Complete Time: 14:16 [facility] 02/02 13:14 Order name: LFT's [facility] 02/02 13:14 Order name: Magnesium; Complete Time: 14:47 [facility] 02/02 13:14 Order name: NT PRO-BNP; Complete Time: 14:47 [facility] 02/02 13:14 Order name: PT-INR; Complete Time: 14:16 [facility] 02/02 13:14 Order name: Troponin (emerg Dept Use Only); Complete Time: 14:47 [facility] 02/02 13:14 Order name: CPK; Complete Time: 14:47 [facility] 02/02 13:15 Order name: Basic Metabolic Panel; Complete Time: 14:47 [facility] 02/02 13:15 Order name: Liver (Hepatic) Function; Complete Time: 14:47 [facility] 02/02 14:47 Order name: Lipase [facility] 02/02 14:47 Order name: Lipase; Complete Time: 15:11 [facility] 02/02 16:27 Order name: SARS-COV-2 RT PCR; Complete Time: 16:28 [facility] 02/02 13:14 Order name: XRAY Chest (1 view); Complete Time: 14:10 [facility] 02/02 13:14 Order name: EKG; Complete Time: 13:15 [facility] 02/02 13:14 Order name: Cardiac monitoring; Complete Time: 13:24 [facility] 02/02 13:14 Order name: EKG - Nurse/Tech; Complete Time: 13:42 [facility] 02/02 13:14 Order name: IV Saline Lock; Complete Time: 13:42 [facility] 02/02 13:14 Order name: Labs collected and sent; Complete Time: 13:24 [facility] 02/02 13:14 Order name: O2 Per Protocol; Complete Time: 13:24 [facility] 02/02 13:14 Order name: O2 Sat Monitoring; Complete Time: 13:24 [facility] 02/02 14:47 Order name: US Abdomen Limited; Complete Time: 16:09 [facility] 02/02 15:13 Order name: CT Chest, Abdomen, Pelvis - W/Contrast; Complete Time: 16:09 [facility] Administered Medications: 13:41 Drug: NS 0.9% 1000 ml Route: IV; Rate: 1 bolus; Site: right forearm; hb 14:45 Follow up: Response: No adverse reaction; IV Status: Completed infusion; IV Intake: hb 1000ml 13:41 Drug: morphine 4 mg Route: IVP; Site: right forearm; hb 14:30 Follow up: Response: No adverse reaction hb 13:41 Drug: Zofran (Ondansetron) 4 mg Route: IVP; Site: right forearm; hb 14:30 Follow up: Response: No adverse reaction hb 16:15 Drug: NS 0.9% 1000 ml Route: IV; Rate: 1 bolus; Site: right antecubital; hb Disposition: 19:23 Co-signature as Attending Physician, Juvenal Dumont MD I agree with the assessment and kdr plan of care. Disposition Summary: 02/02/21 17:25 Discharge Ordered Location: Home [facility] Condition: Stable [facility] Diagnosis - Acute Pancreatitis [facility] Followup: [facility] - With: Rivera Claudio MD - When: 2 - 3 days - Reason: Recheck today's complaints, Continuance of care, Re-evaluation by your physician Discharge Instructions: - Discharge Summary Sheet jmm - Acute Pancreatitis jmm - Pancreatitis Eating Plan jmm Forms: - Medication Reconciliation Form jmm - Thank You Letter jmm - Antibiotic Education jmm - Prescription Opioid Use jmm - Work release form eb Prescriptions: - ondansetron 4 mg Oral tablet,disintegrating - take 1 tablet by ORAL route every 4-6 hours; 20 tablet; Refills: 0, Product jm Selection Permitted Signatures: Dispatcher [employer] EDMS Juvenal Dumont MD MD kdr Mickail, Joel, PA PA umam Aide Aiken RN RN hb Corrections: (The following items were deleted from the chart) 15:30 13:33 CORONAVIRUS+MR.LAB.BRZ ordered. EDMS EDMS
--- NOTE | 2021-02-02 18:21 | EKG ---
Test Date: 2021-02-02 Test Time: 13:33:28 Knot Borer: HB MEASUREMENT RESULTS: Intervals: Rate: 103 MA: 124 QRSD: 106 QT: 354 QTc: 463 [place]: P: 51 MA: 124 QRS: 59 T: 64 INTERPRETIVE STATEMENTS: Sinus tachycardia Otherwise normal ECG Compared to ECG 10/04/2020 01:40:45 Sinus rhythm no longer present Intraventricular conduction delay no longer present Electronically Signed On 02-02-21 18:20:41 CDT by Molina Mitchell
[2021-02-02 19:11] VITALS: TEMP 98.4
[2021-02-02 19:15] VITALS: BP 124/87; O2SAT 98
== END 2021-02-02 18:21 | disposition home or self-care (01) ==
LOC: ER 12:39
DX: K85.90 Acute pancreatitis without necrosis or infection, unspecified (principal); I10 Essential (primary) hypertension; F41.9 Anxiety disorder, unspecified; Z20.822 Contact with and (suspected) exposure to COVID-19
CPT/HCPCS: 36415; 71045; 71260; 74177; 76705; 80048; 80076; 82550; 83690; 83735; 83880; 84484; 85025; 85610; 93005; 96361; 96374; 96375; 99284; J2405; J7030; Q9967; U0003

== ENCOUNTER 2021-02-04 17:28 | Emergency (ER) | payer SELFPAY ==
[2021-02-04 18:17] LABS: Urine Blood 1+ (Negative); Urine Glucose Negative (Negative); Urine Protein 2+ (Negative)
[2021-02-04] MEDS ORDERED: NA CHLORIDE 0.9% 1,000 ML ONE (18:21)
[2021-02-04 18:40] LABS: Absolute Lymphocytes (CBC) 1.1 K/uL (0.7-4.9); Basophils % 0.9 % (0-1.3); Hematocrit 36.1 % (39.6-49.0); Lymphocytes % 15.6 % (15.3-44.8); MPV 8.7 fL (7.6-11.3); RBC Red Blood Cell Count 3.62 M/uL (4.33-5.43)
[2021-02-04 18:56] LABS: BUN Blood Urea Nitrogen 15 mg/dL (7-18); Bicarbonate 26 mmol/L (21-32); Glucose Level 96 mg/dL (74-106); Potassium 3.3 mmol/L (3.5-5.1); Sodium Level 134 mmol/L (136-145)
[2021-02-04] MEDS ORDERED: KETOROLAC 30 MG/ML INJ ONE (19:00)
--- NOTE | 2021-02-04 19:01 | RAD REPORT ---
EXAM DESCRIPTION: CT - Stone Protocol - 02/04/2021 6:15 pm CLINICAL HISTORY: Abdominal pain. COMPARISON: February 02, 2021 TECHNIQUE: Computed axial tomography of the abdomen pelvis was obtained without oral or IV contrast. Lack of IV and oral contrast limits evaluation of solid organs, bowel, and vessels. Coronal reformat richard images were obtained and reviewed. All CT scans are performed using dose optimization technique as appropriate and may include automated exposure control or mA/KV adjustment according to patient size. FINDINGS: Multiple, bilateral small renal calculi vary in size from 1 to 3 millimeters. . An uretera l calculus is not noted. A bladder calculus is not present. Bladder wall appears thickened Fatty liver Spleen, pancreas and adrenals appear grossly normal There is no evidence of diverticulitis. Small inguinal hernias. Tiny umbilical hernia IMPRESSION: Multiple, bilateral nonobstructing renal calculi Apparent bladder wall thickening may be secondary to inflammation or incomplete distention
--- NOTE | 2021-02-04 19:03 | RAD REPORT ---
EXAM DESCRIPTION: RAD - Hip Left 2 View - 02/04/2021 6:25 pm CLINICAL HISTORY: Left hip pain FINDINGS: No fracture or dislocation is seen. Mild osteoarthritis involves the left hip mainly consisting of subchondral sclerosis
[2021-02-04 19:18] LABS: Urine Bacteria <20 /HPF (NONE SEEN); Urine RBC NONE SEEN /HPF (NONE SEEN)
--- NOTE | 2021-02-04 19:49 | EDPHYS ---
Physician Documentation [facility] Name: Abiodun Lara Age: 41 yrs Sex: Male : 1980 Arrival Date: 02/04/2021 Time: 17:29 Bed 18 Private MD: Fantasma Mora R ED Physician Lencho Zee HPI: 02/04 19:46 This 41 yrs old Male presents to ER via Ambulatory with complaints of Urinary kb Retention, Flank Pain - left. 19:46 The patient presents with urinary symptoms, difficulty urinating. Onset: The kb symptoms/episode began/occurred today. Modifying factors: The symptoms are alleviated by nothing, the symptoms are aggravated by nothing. Associated signs and symptoms: The patient has no apparent associated signs or symptoms. Severity of symptoms: At their worst the symptoms were mild, moderate, in the emergency department the symptoms have resolved. The patient has not experienced similar symptoms in the past. The patient has not recently seen a physician. Pt reports he was unable to urinate for hours so he came in, but then was able to urinate while in the lobby. States he also has "kidney pain," but points to left hip when showing where pain is. . Historical: - Allergies: 17:38 No Known Allergies; aa5 - PMHx: 17:38 Anxiety; chronic back pain; Hypertension; aa5 - Immunization history:: Client reports having NOT received the Covid vaccine. - Social history:: Smoking status: Patient denies any tobacco usage or history of. ROS: 19:45 Constitutional: Negative for fever, chills, and weight loss. kb 19:45 : Positive for difficulty urinating. 19:45 MS/extremity: Positive for pain, of the left hip. 19:45 All other systems are negative. Exam: 19:45 Constitutional: This is a well developed, well nourished patient who is awake, alert, kb and in no acute distress. Head/Face: Normocephalic, atraumatic. ENT: Moist Mucous membranes Cardiovascular: Regular rate and rhythm with a normal S1 and S2. No gallops, murmurs, or rubs. No pulse deficits. Respiratory: Respirations even and unlabored. No increased work of breathing, no retractions or nasal flaring. Abdomen/GI: Soft, non-tender. No distention Skin: Warm, dry with normal turgor. Normal color. MS/ Extremity: Pulses equal, no cyanosis. Neurovascular intact. Full, normal range of motion. Neuro: Awake and alert, GCS 15, oriented to person, place, time, and situation. Moves all extremities. Normal gait. Psych: Awake, alert, with orientation to person, place and time. Behavior, mood, and affect are within normal limits. Vital Signs: 17:36 BP 141 / 110; Pulse 115; Resp 18 S; Temp 98.4(O); Pulse Ox 100% on R/A; Weight 79.38 kg aa5 (R); Height 5 ft. 11 in. (180.34 cm) (R); 18:38 BP 149 / 100; Pulse 97; Resp 19; Pulse Ox 100% ; bp 20:07 BP 136 / 99; Pulse 89; Resp 18; Pulse Ox 99% on R/A; Pain 0/10; lp1 17:36 Body Mass Index 24.41 (79.38 kg, 180.34 cm) aa5 MDM: 17:43 Patient medically screened. kb 19:43 Data reviewed: vital signs, nurses notes. Data interpreted: Pulse oximetry: on room air kb is 100 %. Interpretation: normal. 19:47 Counseling: I had a detailed discussion with the patient and/or guardian regarding: the kb historical points, exam findings, and any diagnostic results supporting the discharge/admit diagnosis, lab results, radiology results, the need for outpatient follow up, a family practitioner, to return to the emergency department if symptoms worsen or persist or if there are any questions or concerns that arise at home. 02/04 17:43 Order name: Basic Metabolic Panel; Complete Time: 19:17 kb 02/04 17:43 Order name: CBC with Diff; Complete Time: 18:42 kb 02/04 17:43 Order name: CT Stone Protocol; Complete Time: 19:17 kb 02/04 17:43 Order name: Urine Microscopic Only; Complete Time: 19:42 kb 02/04 17:59 Order name: Hip Left 2 View XRAY; Complete Time: 19:17 kb 02/04 18:17 Order name: Urine Dipstick-Ancillary; Complete Time: 18:22 EDMS 02/04 17:43 Order name: IV Saline Lock; Complete Time: 18:28 kb 02/04 17:43 Order name: Labs collected and sent; Complete Time: 18:28 kb 02/04 17:43 Order name: Urine Dipstick-Ancillary (obtain specimen); Complete Time: 18:28 kb Administered Medications: 18:28 Drug: NS 0.9% 1000 ml Route: IV; Rate: 1000 ml; Site: right antecubital; bp 20:08 Follow up: IV Status: Completed infusion lp1 18:37 Drug: Ketorolac 15 mg Route: IVP; Site: right antecubital; bp 20:08 Follow up: Response: No adverse reaction lp1 Disposition: 02/05 10:01 Co-signature as Attending Physician, Lencho Zee MD I agree with the assessment and geovanny plan of care. Disposition Summary: 02/04/21 19:48 Discharge Ordered Location: Home kb Condition: Stable kb Diagnosis - Pain in left hip kb - Retention of urine, unspecified - resolved kb Followup: kb - With: Emergency Department - When: As needed - Reason: Worsening of condition Followup: kb - With: Private Physician - When: 2 - 3 days - Reason: Recheck today's complaints, Continuance of care, Re-evaluation by your physician Discharge Instructions: - Discharge Summary Sheet kb - Musculoskeletal Pain kb - Acute Urinary Retention, Male, [id number] kb Forms: - Medication Reconciliation Form kb - Thank You Letter kb - Antibiotic Education kb - Prescription Opioid Use kb - Work release form bc5 Signatures: Dispatcher [employer] Lizzie Escobar, LIEN LABOR ECONOMIST-Lencho Beckford MD MD cha Calderon, Audri, RN RN aa5 Basil Zamora RN RN bp Jazmyne Puente RN lp1
--- NOTE | 2021-02-04 19:49 | ER ---
Nurse's Notes [facility] Name: Abiodun Lara Age: 41 yrs Sex: Male : 1980 Arrival Date: 02/04/2021 Time: 17:29 Bed 18 Private MD: Fantasma Mora R Diagnosis: Pain in left hip;Retention of urine, unspecified-resolved Presentation: 02/04 17:36 Chief complaint: Patient states: "I hadn't been able to pee for the last 3 hours but I aa5 just went to the restroom in the lobby and I was able to pee good". Pt c/o left hip/low back pain. Coronavirus screen: At this time, the client does not indicate any symptoms associated with coronavirus-19. Ebola Screen: Patient negative for fever greater than or equal to 101.5 degrees Fahrenheit, and additional compatible Ebola Virus Disease symptoms. Initial Sepsis Screen: Does the patient meet any 2 criteria? No. Patient's initial sepsis screen is negative. Does the patient have a suspected source of infection? No. Patient's initial sepsis screen is negative. Risk Assessment: Do you want to hurt yourself or someone else? Patient reports no desire to harm self or others. Onset of symptoms was February 04, 2021. 17:36 Method Of Arrival: Ambulatory aa5 17:36 Acuity: CHENTE 3 aa5 Triage Assessment: 17:45 General: Appears distressed, uncomfortable, Behavior is cooperative, appropriate for bp age, anxious. Pain: Complains of pain in low back area and left hip. EENT: No deficits noted. Neuro: No deficits noted. Cardiovascular: No deficits noted. Respiratory: No deficits noted. GI: No signs and/or symptoms were reported involving the gastrointestinal system. : Reports inability to void. Derm: No deficits noted. Musculoskeletal: No deficits noted. Historical: - Allergies: 17:38 No Known Allergies; aa5 - PMHx: 17:38 Anxiety; chronic back pain; Hypertension; aa5 - Immunization history:: Client reports having NOT received the Covid vaccine. - Social history:: Smoking status: Patient denies any tobacco usage or history of. Screenin:53 Abuse screen: Denies threats or abuse. Denies injuries from another. Nutritional bp screening: No deficits noted. Tuberculosis screening: No symptoms or risk factors identified. Fall Risk None identified. Assessment: 17:50 General: SEE TRIAGE NOTE. bp 18:38 Reassessment: No changes from previously documented assessment. Patient and/or family bp updated on plan of care and expected duration. Pain level reassessed. PT RETURNED FROM CT. ALL CURRENT ORDERS COMPLETED. 20:08 Reassessment: Patient is alert, oriented x 3, equal unlabored respirations, skin lp1 warm/dry/pink. Patient states feeling better. Vital Signs: 17:36 BP 141 / 110; Pulse 115; Resp 18 S; Temp 98.4(O); Pulse Ox 100% on R/A; Weight 79.38 kg aa5 (R); Height 5 ft. 11 in. (180.34 cm) (R); 18:38 BP 149 / 100; Pulse 97; Resp 19; Pulse Ox 100% ; bp 20:07 BP 136 / 99; Pulse 89; Resp 18; Pulse Ox 99% on R/A; Pain 0/10; lp1 17:36 Body Mass Index 24.41 (79.38 kg, 180.34 cm) aa5 ED Course: 17:15 Inserted saline lock: 20 gauge in right forearm, using aseptic technique. Blood bp collected. 17:29 Patient arrived in ED. am2 17:29 Fantasma Mora MD is Private Physician. am2 17:38 Triage completed. aa5 17:38 Arm band placed on. aa5 17:43 Lizzie Henriquez [facility]NP-C [facility]. kb 17:43 Lencho Zee MD is Attending Physician. kb 17:51 Basil Zamora, BAKARI is Primary Nurse. bp 17:53 Patient has correct armband on for positive identification. Bed in low position. Call bp light in reach. Side rails up X2. Adult w/ patient. 18:14 CT Stone Protocol In Process Unspecified. EDMS 18:25 Hip Left 2 View XRAY In Process Unspecified. EDMS 20:07 No provider procedures requiring assistance completed. IV discontinued, No lp1 redness/swelling at site. Pressure dressing applied. Administered Medications: 18:28 Drug: NS 0.9% 1000 ml Route: IV; Rate: 1000 ml; Site: right antecubital; bp 20:08 Follow up: IV Status: Completed infusion lp1 18:37 Drug: Ketorolac 15 mg Route: IVP; Site: right antecubital; bp 20:08 Follow up: Response: No adverse reaction lp1 Outcome: 19:48 Discharge ordered by . gertrude 20:07 Discharged to home ambulatory. lp1 20:07 Condition: good 20:07 Discharge instructions given to patient, Instructed on discharge instructions, follow up and referral plans. Demonstrated understanding of instructions, follow-up care. 20:08 Patient left the ED. lp1 Signatures: Dispatcher [employer] EDLizzie Thompson, SHERITA-C SHERITA-Lissette Terrazas, RN RN aa5 Jazmyne Puente RN RN lp1 Lori Kuhn am2 Basil Zamora, RN RN bp
[2021-02-04 20:14] VITALS: TEMP 98.4
[2021-02-04 20:16] VITALS: BP 136/99; O2SAT 99
== END 2021-02-04 20:08 | disposition home or self-care (01) ==
LOC: ER 17:28
DX: M25.552 Pain in left hip (principal); I10 Essential (primary) hypertension
CPT/HCPCS: 36415; 74176; 76377; 80048; 81003; 81015; 85025; 96361; 96374; 99284; J7030

== ENCOUNTER 2021-12-13 16:32 | Inpatient (IN) | payer SELFPAY ==
[2021-12-13 17:02] LABS: Urine Blood Trace-intact (Negative); Urine Glucose Negative (Negative); Urine Protein Negative (Negative); Urine Specific Gravity <=1.005 (1.005-1.030); Urine pH 5.5 (5.0-7.0)
--- NOTE | 2021-12-13 17:18 | RAD REPORT ---
EXAM DESCRIPTION: CT - Head Brain Wo Cont - 12/13/2021 5:02 pm CLINICAL HISTORY: Mental status change, alcohol/drug use COMPARISON: No comparisons TECHNIQUE: Axial 5 mm thick images of the head were obtained without IV contrast. All CT scans are performed using dose optimization technique as appropriate and may include automated exposure control or mA/KV adjustment according to patient size. FINDINGS: No intracranial hemorrhage, mass, edema or shift of mid-line structures. No acute infarcti on changes seen. No abnormal extra-axial fluid collections. Ventricles are normal. Mastoid air cells and visualized portions of the paranasal sinuses are clear. No acute bony findings. IMPRESSION: Negative non-contrast CT head examination.
[2021-12-13 17:30] LABS: Barbiturates NEGATIVE (NEGATIVE); Benzodiazepines NEGATIVE (NEGATIVE); Cocaine POSITIVE (NEGATIVE); METHAMPHETAM NEGATIVE (NEGATIVE); Methadone NEGATIVE (NEGATIVE); Opiates NEGATIVE (NEGATIVE); Phencyclidine NEGATIVE (NEGATIVE); THC Cannibis POSITIVE (NEGATIVE)
[2021-12-13] MEDS ORDERED: FAMOTIDINE 20 MG/2 ML VIAL IV ONE (17:53)
[2021-12-13] MEDS ORDERED: LORazepam 2 MG/ML VIAL ONE (17:53)
[2021-12-13] MEDS ORDERED: THIAMINE 200 MG/2 ML INJ ONE (17:54)
[2021-12-13] MEDS ORDERED: FOLIC ACID 5 MG/ML VIAL ONE (17:55)
[2021-12-13] MEDS ORDERED: NA CHLORIDE 0.9% 1,000 ML ONE (17:55)
[2021-12-13] MEDS ORDERED: MULTIVITAMINS 10 ML VIAL (INJ) IV ONE (17:55)
[2021-12-13 17:56] LABS: Absolute Lymphocytes (CBC) 2.2 K/uL (0.7-4.9); Hematocrit 42.5 % (39.6-49.0); Lymphocytes % 46.8 % (15.3-44.8); MPV 8.5 fL (7.6-11.3); RBC Red Blood Cell Count 4.33 M/uL (4.33-5.43)
[2021-12-13 18:02] LABS: Protime INR 0.94
[2021-12-13 18:15] LABS: ALT/SGPT 100 U/L (12-78); AST/SGOT 94 U/L (15-37); Alkaline Phosphatase 74 U/L (45-117); BUN Blood Urea Nitrogen 8 mg/dL (7-18); Bicarbonate 24 mmol/L (21-32); Bilirubin Direct 0.2 mg/dL (0-0.2); Bilirubin Total 0.4 mg/dL (0.2-1.0); Glomerular Filtration Rate 117 ml/min (=/>90); Glucose Level 94 mg/dL (74-106); Potassium 3.4 mmol/L (3.5-5.1); Protein, Total 7.5 g/dL (6.4-8.2); Sodium Level 142 mmol/L (136-145)
[2021-12-13] MEDS ORDERED: ONDANSETRON 4 MG/2 ML VIAL ONE (18:31)
[2021-12-13 19:31] LABS: Urine Blood Negative (Negative); Urine Glucose Negative (Negative); Urine Protein Negative (Negative); Urine Specific Gravity <=1.005 (1.005-1.030); Urine pH 5.5 (5.0-7.0)
--- NOTE | 2021-12-13 21:44 | ER ---
Nurse's Notes [facility] Name: Abiodun Lara Age: 41 yrs Sex: Male : 1980 Arrival Date: 12/13/2021 Time: 16:33 Bed 24 Private MD: Delroy Alfaro Diagnosis: Cocaine abuse;Alcohol abuse with intoxication Presentation: 12/13 16:37 Chief complaint: Parent and/or Guardian states: Mom states we just went to Dr. Alfaro's 7 office because he has pain all over. He has had over a case of beer today and he fells weak. Mom states he is not drunk he just feels bad. Coronavirus screen: At this time, the client does not indicate any symptoms associated with coronavirus-19. Ebola Screen: No symptoms or risks identified at this time. Initial Sepsis Screen: Does the patient meet any 2 criteria? Altered Mental Status. HR > 90 bpm. Yes Does the patient have a suspected source of infection? No. Patient's initial sepsis screen is negative. Risk Assessment: Do you want to hurt yourself or someone else? Patient reports no desire to harm self or others. Onset of symptoms was December 13, 2021. 16:37 Method Of Arrival: Wheelchair 7 16:37 Acuity: CHENTE 2 bm7 Triage Assessment: 16:40 General: Appears uncomfortable, well groomed, well developed, Behavior is drowsy, bm7 restless, Smells of alcohol. Pain: Complains of pain in all over body. EENT: No deficits noted. No signs and/or symptoms were reported regarding the EENT system. Neuro: Level of Consciousness is awake, lethargic, Oriented to person, place, time, situation, Editor & Co Founder are equal bilaterally Gait is unsteady, Speech is slurred. Cardiovascular: No deficits noted. Denies chest pain, shortness of breath. Respiratory: No deficits noted. GI: No deficits noted. No signs and/or symptoms were reported involving the gastrointestinal system. : No deficits noted. No signs and/or symptoms were reported regarding the genitourinary system. Derm: No deficits noted. No signs and/or symptoms reported regarding the dermatologic system. Skin is intact, is healthy with good turgor, Skin is dry, Skin is normal. Musculoskeletal: No deficits noted. No signs and/or symptoms reported regarding the musculoskeletal system. Historical: - Allergies: 16:40 No Known Allergies; bm7 - Home Meds: 16:40 lisinopril 20 mg Oral tab 1 tab once daily [Active]; [place] Oral [Active]; Soma Oral bm7 [Active]; - PMHx: 16:40 Anxiety; Hypertension; chronic back pain; bm7 - PSHx: 16:40 None; bm7 - Immunization history:: Adult Immunizations not up to date. - Social history:: Smoking status: Patient reports the use of cigarette tobacco products, Patient uses street drugs, marijuana, Patient/guardian denies using. Screenin:36 Abuse screen: Denies threats or abuse. Denies injuries from another. Nutritional lg3 screening: No deficits noted. Tuberculosis screening: No symptoms or risk factors identified. Fall Risk None identified. Assessment: 19:36 General: Appears in no apparent distress. comfortable, Behavior is calm, cooperative. lg3 Pain: Complains of pain in generalized body. Neuro: No deficits noted. Level of Consciousness is awake, obeys commands, Oriented to person, place, time. Cardiovascular: No deficits noted. Denies chest pain, shortness of breath, Capillary refill < 3 seconds Clubbing of nail beds is absent JVD is absent Patient's skin is warm and dry. Respiratory: No deficits noted. Airway is patent Trachea midline Respiratory effort is even, unlabored, Respiratory pattern is regular, symmetrical. GI: No deficits noted. Abdomen is round non-distended, Bowel sounds present X 4 quads. : No deficits noted. No signs and/or symptoms were reported regarding the genitourinary system. EENT: No deficits noted. No signs and/or symptoms were reported regarding the EENT system. Derm: No deficits noted. No signs and/or symptoms reported regarding the dermatologic system. Skin is intact, is healthy with good turgor, Skin is dry, Skin temperature is warm. Musculoskeletal: No deficits noted. Circulation, motion, and sensation intact. Range of motion: intact in all extremities, Reports generalized pain and weakness. 20:32 General: pt quietly resting at this time . lg3 21:36 Reassessment: Patient appears in no apparent distress at this time. No changes from lg3 previously documented assessment. Patient and/or family updated on plan of care and expected duration. Pain level reassessed. Patient is alert, oriented x 3, equal unlabored respirations, skin warm/dry/pink. Vital Signs: 16:37 BP 130 / 90; Pulse 104; Resp 14; Temp 98.4(TE); Pulse Ox 99% on R/A; Weight 86.18 kg bm7 (M); Height 5 ft. 11 in. (180.34 cm); Pain 10/10; 19:38 BP 130 / 94; Pulse 86; Resp 15; Pulse Ox 99% on R/A; lg3 22:20 BP 132 / 88; Pulse 88; Resp 16; Pulse Ox 100% on R/A; lg3 16:37 Body Mass Index 26.50 (86.18 kg, 180.34 cm) bm7 ED Course: 16:33 Patient arrived in ED. am2 16:33 Delroy Alfaro MD is Private Physician. am2 16:40 Triage completed. bm7 16:40 Arm band placed on left wrist. bm7 16:49 Des Sheppard NP is PHCP. pm1 16:49 Lencho Zee MD is Attending Physician. pm1 17:04 CT Head Brain wo Cont In Process Unspecified. EDMS 17:07 Aide Ulrich, BAKARI is Primary Nurse. patel 19:36 Placed in gown. Bed in low position. Call light in reach. Side rails up X 1. Client lg3 placed on continuous cardiac and pulse oximetry monitoring. NIBP monitoring applied. traffic monitor specialist on. Door closed. Noise minimized. Warm blanket given. 21:40 Delroy Alfaro MD is Hospitalizing Provider. pm1 12/14 00:46 No provider procedures requiring assistance completed. Patient admitted, IV remains in lg3 place. intact, No redness/swelling at site. Administered Medications: 12/13 18:09 Drug: Ativan (LORazepam) 1 mg Route: IVP; Site: right antecubital; patel 18:24 Follow up: Response: No adverse reaction patel 18:09 Drug: Pepcid (famotidine) 20 mg Route: IVP; Site: right antecubital; patel 18:24 Follow up: Response: No adverse reaction patel 18:10 Drug: Banana Bag - (NS 0.9% 1000 ml, foLIC Acid 1 mg, Thiamine 100 mg, Multivitamin 1 patel amp) Route: IV; Rate: calculated rate; Site: right antecubital; 12/14 00:46 Follow up: IV Status: Completed infusion lg3 12/13 18:23 Drug: Zofran (Ondansetron) 4 mg Route: IVP; Site: right antecubital; patel 18:24 Follow up: Response: No adverse reaction patel Medication: 12/14 00:46 VIS not applicable for this client. lg3 Outcome: 12/13 21:43 Decision to Hospitalize by Provider. pm1 12/14 00:46 Admitted to ER Hold. Please see [facility] for further documentation. lg3 Condition: stable Instructed on the need for admit. 12:51 AMA AMA form signed patel 12:51 Patient left the ED. patel Signatures: Dispatcher [employer] EDMS Des Sheppard, DAVID COMMERCIAL INSTRUCTOR SUPERVISOR pm1 Lori Kuhn am2 Sravanthi Moreno RN RN lg3 Melissa Garcia RN RN 7 Aide Ulrich RN RN patel
--- NOTE | 2021-12-13 21:44 | EDPHYS ---
Physician Documentation [facility] Name: Abiodun Lara Age: 41 yrs Sex: Male : 1980 Arrival Date: 12/13/2021 Time: 16:33 Bed 24 Private MD: Delroy Alfaro ED Physician Lencho Zee HPI: 12/13 17:18 This 41 yrs old Male presents to ER via Wheelchair with complaints of Alcohol pm1 Withdrawal, Pain All Over. 17:18 Presenting to the ER for alcohol detoxification. Patient complaining of pain all over. pm1 Patient drank beer 1 hour prior to ER arrival. Onset: The symptoms/episode began/occurred today. Severity of symptoms: in the emergency department the symptoms are unchanged. The patient has been recently seen by a physician: the patient's primary care provider, Dr. Alfaro earlier today, with similar presenting complaints, and was sent to the [facility] Emergency Department for further evaluation. 41-year-old male presents to the ER with complaints of alcohol withdrawal and pain all over. Patient was seen by his PCP, Dr. Alfaro prior to arrival and was instructed to report to the ER for evaluation and treatment. Patient is expecting to be admitted to the hospital for alcohol detoxification after hydration with IV fluids. Patient last drank alcohol 1 hour prior to arrival. Patient drank 1 case of beer. Historical: - Allergies: 16:40 No Known Allergies; bm7 - Home Meds: 16:40 lisinopril 20 mg Oral tab 1 tab once daily [Active]; Dushore Oral [Active]; Soma Oral bm7 [Active]; - PMHx: 16:40 Anxiety; Hypertension; chronic back pain; bm7 - PSHx: 16:40 None; bm7 - Immunization history:: Adult Immunizations not up to date. - Social history:: Smoking status: Patient reports the use of cigarette tobacco products, Patient uses street drugs, marijuana, Patient/guardian denies using. ROS: 17:18 Cardiovascular: Negative for chest pain, palpitations, and edema, Respiratory: Negative pm1 for shortness of breath, cough, wheezing, and pleuritic chest pain, Abdomen/GI: Negative for abdominal pain, nausea, vomiting, diarrhea, and constipation. 17:18 : Negative for injury, bleeding, discharge, and swelling, MS/Extremity: Negative for injury and deformity, Skin: Negative for injury, rash, and discoloration, Neuro: Negative for headache, weakness, numbness, tingling, and seizure. 17:18 Constitutional: Positive for body aches, all over, Negative for fever, malaise, poor PO intake. 17:18 Back: Positive for of the left mid back. 17:18 All other systems are negative. Exam: 17:18 Constitutional: This is a well developed, well nourished patient who is awake, alert, pm1 and in no acute distress. Head/Face: Normocephalic, atraumatic. 17:18 Skin: Warm, dry with normal turgor. Normal color with no rashes, no lesions, and no evidence of cellulitis. MS/ Extremity: Pulses equal, no cyanosis. Neurovascular intact. Full, normal range of motion. 17:18 Eyes: Exam is negative for acute changes, Periorbital structures: appear normal, Extraocular movements: no acute changes, Conjunctiva: no acute changes, no injection. 17:18 ENT: Exam is negative for acute changes, Mouth: no acute changes, Lips: normal, moist, Oral mucosa: normal, pink and intact, moist. 17:18 Cardiovascular: Exam negative for acute changes, Rate: tachycardic, actual rate is 104 bpm, Rhythm: regular, Pulses: no pulse deficits are appreciated, Heart sounds: normal, normal S1and S2. 17:18 Respiratory: Exam negative for acute changes, respiratory distress, shortness of breath. 17:18 Abdomen/GI: Exam negative for acute changes, Inspection: abdomen appears normal, Palpation: abdomen is soft and non-tender, in all quadrants. 17:18 Back: pain, is absent, vertebral tenderness, is not appreciated. 17:18 Neuro: Exam negative for acute changes, Orientation: is normal, Mentation: is normal, Motor: is normal, moves all fours. Vital Signs: 16:37 BP 130 / 90; Pulse 104; Resp 14; Temp 98.4(TE); Pulse Ox 99% on R/A; Weight 86.18 kg bm7 (M); Height 5 ft. 11 in. (180.34 cm); Pain 10/10; 19:38 BP 130 / 94; Pulse 86; Resp 15; Pulse Ox 99% on R/A; lg3 22:20 BP 132 / 88; Pulse 88; Resp 16; Pulse Ox 100% on R/A; lg3 16:37 Body Mass Index 26.50 (86.18 kg, 180.34 cm) [facility] MDM: 16:50 Patient medically screened. pm1 19:11 Data reviewed: vital signs. Data interpreted: Pulse oximetry: on room air is 99 %. pm1 Interpretation: normal. 20:30 ED course: Left message for admission at 1903 and 2030. pm1 21:24 Physician consultation: Delroy Alfaro MD was contacted at 21:26, regarding and will see pm1 patient tomorrow, would like medications started, Ativan 2mg Q6hr PRN agitation and CPK in the AM. 12/13 16:45 Order name: Acetaminophen; Complete Time: 18:17 [facility] 12/13 16:45 Order name: Basic Metabolic Panel; Complete Time: 18:17 [facility] 12/13 16:45 Order name: CBC with Diff; Complete Time: 18:09 [facility] 12/13 16:45 Order name: ETOH Level; Complete Time: 18:17 [facility] 12/13 16:45 Order name: Hepatic Function; Complete Time: 18:17 [facility] 12/13 16:45 Order name: PT-INR; Complete Time: 18:09 [facility] 12/13 16:45 Order name: Ptt, Activated; Complete Time: 18:09 [facility] 12/13 16:45 Order name: Salicylate; Complete Time: 18:17 [facility] 12/13 16:45 Order name: Urine Drug Screen; Complete Time: 17:42 [facility] 12/13 16:54 Order name: COVID-19 SARS RT PCR (Document "Date of Onset" if Symptomatic); Complete pm1 Time: 19:54 12/13 16:54 Order name: Flu; Complete Time: 18:36 pm1 12/13 17:02 Order name: Urine Dipstick-Ancillary; Complete Time: 17:12 EDKS 12/13 19:32 Order name: Urine Dipstick-Ancillary; Complete Time: 19:38 EDKS 12/14 02:18 Order name: CBC with Automated Diff; Complete Time: 03:46 EDKS 12/13 16:45 Order name: EKG; Complete Time: 16:48 [facility] 12/13 16:45 Order name: EKG - Nurse/Tech; Complete Time: 18:27 [facility] 12/13 16:45 Order name: IV Saline Lock; Complete Time: 17:52 [facility] 12/13 16:45 Order name: Labs collected and sent; Complete Time: 17:52 [facility] 12/13 16:45 Order name: Suicide Screening ([place]); Complete Time: 19:13 [facility] 12/13 16:45 Order name: Urine Dipstick-Ancillary (obtain specimen); Complete Time: 19:31 [facility] 12/13 16:47 Order name: CT Head Brain wo Cont; Complete Time: 17:22 [facility] 12/14 02:29 Order name: Comprehensive Metabolic Panel; Complete Time: 03:46 EDMS 12/14 02:29 Order name: Creatine Phosphokinase; Complete Time: 03:46 EDMS EC:26 Rate is 83 beats/min. Rhythm is regular, Normal Sinus Rhythm. QT interval is normal. No pm1 Q waves. T waves are Normal. No ST changes noted. Clinical impression: No evidence of ischemia. Administered Medications: 18:09 Drug: Ativan (LORazepam) 1 mg Route: IVP; Site: right antecubital; patel 18:24 Follow up: Response: No adverse reaction patel 18:09 Drug: Pepcid (famotidine) 20 mg Route: IVP; Site: right antecubital; patel 18:24 Follow up: Response: No adverse reaction patel 18:10 Drug: Banana Bag - (NS 0.9% 1000 ml, foLIC Acid 1 mg, Thiamine 100 mg, Multivitamin 1 patel amp) Route: IV; Rate: calculated rate; Site: right antecubital; 12/14 00:46 Follow up: IV Status: Completed infusion lg3 12/13 18:23 Drug: Zofran (Ondansetron) 4 mg Route: IVP; Site: right antecubital; patel 18:24 Follow up: Response: No adverse reaction patel Disposition Summary: 12/13/21 21:43 Hospitalization Ordered Hospitalization Status: Inpatient Admission pm1 Provider: Delroy Alfaro pm1 Condition: Stable pm1 Problem: new pm1 Symptoms: have improved pm1 Bed/Room Type: Standard pm1 Location: [facility] ER HOLD(12/13/21 21:58) Room Assignment: ERHOLD-(12/13/21 21:58) mw Diagnosis - Cocaine abuse pm1 - Alcohol abuse with intoxication pm1 Forms: - Medication Reconciliation Form pm1 - SBAR form pm1 Signatures: Dispatcher [employer] EDDione Osborne RN RN Des Sheppard, [facility] pm1 Melissa Garcia, RN RN bm7 Aide Ulrich RN RN ha Brown, Sophia, PA PA sb3 Sravanthi Moreno RN lg3 Corrections: (The following items were deleted from the chart) 21:43 Telemetry/MedSurg (Inpatient) 1 21:43 pm1
[2021-12-14] MEDS ORDERED: FLUMAZENIL 0.1 MG/ML (5 mL VIAL) IV PRN (01:01)
[2021-12-14] MEDS ORDERED: IBUPROFEN 200 MG TAB PO ONE ×2 (01:09→01:19)
[2021-12-14] MEDS ORDERED: IBUPROFEN 400 MG TAB ONE ×2 (01:19→08:43)
[2021-12-14 01:26] VITALS: BMI 26.4
[2021-12-14 02:17] LABS: Absolute Lymphocytes (CBC) 2.3 K/uL (0.7-4.9); Hematocrit 39.9 % (39.6-49.0); Lymphocytes % 49.8 % (15.3-44.8); MCV 98.7 fL (80-100); MPV 8.6 fL (7.6-11.3); RBC Red Blood Cell Count 4.05 M/uL (4.33-5.43)
[2021-12-14] MEDS: LORazepam 2 MG/ML VIAL IV PRN ×2 (02:19→08:31)
[2021-12-14 02:21] LABS: Albumin 3.6 g/dL (3.4-5.0); Bilirubin Total 0.4 mg/dL (0.2-1.0); Potassium 3.5 mmol/L (3.5-5.1); Protein, Total 6.6 g/dL (6.4-8.2)
[2021-12-14] MEDS ORDERED: LORazepam 2 MG/ML VIAL ONE ×2 (02:25→07:53)
[2021-12-14] MEDS ORDERED: FOLIC ACID 1 MG TABLET ONE (07:52)
[2021-12-14] MEDS ORDERED: THIAMINE HCL 100 MG TABLET ONE (07:52)
[2021-12-14] MEDS ORDERED: ENOXAPARIN 40 MG/0.4 ML SQ ONE (07:52)
--- NOTE | 2021-12-14 08:02 | P.HP ---
Certification for Inpatient Patient admitted to: Observation With expected LOS: <2 Midnights Patient will require the following post-hospital care: Rehabilitation Practitioner: I am a practitioner with admitting privileges, knowledge of patient current condition, hospital course, and medical plan of care. Services: Services provided to patient in accordance with Admission requirements found in Title 42 Section 412.3 of the Code of Federal Regulations Patient History Date of Service: 12/14/21 Primary Care Provider: Joyce Ortega Reason for admission: polysubstance abuse History of Present Illness: Patient is a troubled young man with a history of alcohol abuse. He came to the office yesterday. Complaining of abdominal and back pain. Worried about pancreatitis or withdrawal he was sent to the ER. Was found to have normal labs. He tested positive for cocaine and thc. States he only started recently on those drugs. Allergies No Known Drug Allergies Allergy (Unverified 10/14/14 01:03) Unknown No Known Allergies Allergy (Uncoded 02/20/16 15:38) Unknown - Social History Smoking Status: Unknown if ever smoked Alcohol use: Yes CD- Drugs: Yes Review of Systems 10-point ROS is otherwise unremarkable General: Malaise Gastrointestinal: Abdominal Pain Physical Examination - Vital Signs Temperature: 98.6 F Blood Pressure: 138/81 Pulse: 87 Respirations: 17 Pulse Ox (%): 100 - Physical Exam General: Alert, In no apparent distress HEENT: Atraumatic, PERRLA, Mucous membr. moist/pink, EOMI, Sclerae nonicteric Neck: Supple, 2+ carotid pulse no bruit, No LAD, Without JVD or thyroid abnormality Respiratory: Clear to auscultation bilaterally, Normal air movement Cardiovascular: Regular rate/rhythm, Normal S1 S2 Gastrointestinal: Normal bowel sounds, No tenderness Musculoskeletal: No tenderness Integumentary: No rashes Neurological: Normal gait, Normal speech, Normal strength at 5/5 x4 extr, Normal tone, Normal affect Lymphatics: No axilla or inguinal lymphadenopathy - Studies Laboratory Data (last 24 hrs) 12/13/21 17:37: PT 10.3, INR 0.94, APTT 22.4 L 12/13/21 17:37: WBC 4.8, Hgb 14.6, Hct 42.5, Plt Count 162 12/13/21 17:30: Sodium 142, Potassium 3.4 L, BUN 8, Creatinine 0.70, Glucose 94, Total Bilirubin 0.4, AST 94 H, ALT 100 H, Alkaline Phosphatase 74 Microbiology Data (last 24 hrs): 12/13/21 17:30 Nasopharnyx Influenza Type A Antigen Screen - Final 12/13/21 17:30 Nasopharnyx Influenza Type B Antigen Screen - Final Assessment and Plan - Problems (Diagnosis) (1) Polysubstance abuse Current Visit: Yes Status: Chronic Plan: Patient is here after polysubstance abuse. Will control his pain with fluids and nsaids. The patient wants a detox. The patient was informed that detox is not really a thing. He has withdrawn from the drugs and can safely go home soon. However the patient needs to work when he gets home on his sobriety. This is very difficult. Will try to help him with medications like naltraxone and antidepressants. Discharge Plan: Home Plan to discharge in: 24 Hours - Advance Directives Does patient have a Living Will: No Does patient have a Durable POA for Healthcare: No - Code Status/Comfort Care Code Status Assessed: No Physician Review: Patient Assessed, Agree with Above Assessment and Plan Critical Care: No Time Spent Managing Pts Care (In Minutes): 45
[2021-12-14] MEDS ORDERED: KETOROLAC 30 MG/ML INJ IV ONE (08:04)
[2021-12-14] MEDS ORDERED: D5 0.45 NS 1,000 ML IV ONE (08:43)
[2021-12-14] MEDS ORDERED: KETOROLAC 30 MG/ML INJ ONE (08:43)
[2021-12-14] MEDS ORDERED: MULTIVITAMIN TAB PO ONE (08:43)
[2021-12-14] MEDS ORDERED: THIAMINE HCL 100 MG TABLET PO SCH ×2 (09:00)
[2021-12-14] MEDS ORDERED: D5 0.45 NS 1,000 ML IV SCH (09:00)
[2021-12-14] MEDS ORDERED: ENOXAPARIN 40 MG/0.4 ML SQ SCH (09:00)
[2021-12-14] MEDS ORDERED: MULTIVITAMIN TAB PO SCH (09:00)
[2021-12-14] MEDS ORDERED: FOLIC ACID 1 MG TABLET PO SCH (09:00)
[2021-12-14 13:03] VITALS: TEMP 98.4
[2021-12-14 13:07] VITALS: BP 132/88; O2SAT 100
--- NOTE | 2021-12-14 15:20 | EKG ---
Test Date: 2021-12-13 Test Time: 18:17:56 Jukebox Checker: LINDA MEASUREMENT RESULTS: Intervals: Rate: 83 ND: 134 QRSD: 124 QT: 368 QTc: 432 [place]: P: 64 ND: 134 QRS: 91 T: 66 INTERPRETIVE STATEMENTS: Normal sinus rhythm Rightward axis Nonspecific intraventricular conduction delay Borderline ECG Compared to ECG 02/02/2021 13:33:28 Right-axis deviation now present Intraventricular conduction delay now present Sinus tachycardia no longer present Electronically Signed On 12-14-21 15:19:05 CDT by Raymundo Mccauley
--- NOTE | 2021-12-14 18:25 | P.DS ---
Admission Date: 12/13/21 Discharge Date: 12/14/21 Primary Care Provider: Joyce Ortega Disposition: AMA-LEFT AGAINST MEDICAL ADVIC Reason for Admission: polysubstance abuse - Problems (1) Polysubstance abuse Status: Chronic Brief History of Present Illness: Patient is a troubled young man with a history of alcohol abuse. He came to the office yesterday. Complaining of abdominal and back pain. Worried about pancreatitis or withdrawal he was sent to the ER. Was found to have normal labs. He tested positive for cocaine and thc. States he only started recently on those drugs. Hospital Course: Patient left ama. I had discussed with him his treatment. He was asking to stay 3-4 days. Again this is not for detox. Hopefully he will follow up. We can start him on medications and refer to services such as AA Vital Signs/Physical Exam: Temp Pulse Resp BP Pulse Ox 98.4 F 88 16 132/88 100 12/14/21 13:01 12/14/21 13:05 12/14/21 13:05 12/14/21 13:05 12/14/21 08:02 General: Alert, In no apparent distress HEENT: Atraumatic, PERRLA, EOMI Neck: Supple, JVD not distended Respiratory: Clear to auscultation bilaterally, Normal air movement Cardiovascular: Regular rate/rhythm, Normal S1 S2 Gastrointestinal: Normal bowel sounds, No tenderness Musculoskeletal: No tenderness Integumentary: No rashes Neurological: Normal speech, Normal tone, Normal affect Lymphatics: No axilla or inguinal lymphadenopathy Laboratory Data at Discharge: WBC 4.6 K/uL (4.3-10.9) 12/14/21 01:45 Hgb 13.8 g/dL (13.6-17.9) 12/14/21 01:45 Hct 39.9 % (39.6-49.0) 12/14/21 01:45 Plt Count 148 K/uL (152-406) L 12/14/21 01:45 PT 10.3 SECONDS (9.5-12.5) 12/13/21 17:37 INR 0.94 12/13/21 17:37 APTT 22.4 SECONDS (24.3-36.9) L 12/13/21 17:37 Sodium 140 mmol/L (136-145) 12/14/21 01:45 Potassium 3.5 mmol/L (3.5-5.1) 12/14/21 01:45 BUN 7 mg/dL (7-18) 12/14/21 01:45 Creatinine 0.73 mg/dL (0.55-1.3) 12/14/21 01:45 Glucose 88 mg/dL (74-106) 12/14/21 01:45 Total Bilirubin 0.4 mg/dL (0.2-1.0) 12/14/21 01:45 AST 76 U/L (15-37) H 12/14/21 01:45 ALT 87 U/L (12-78) H 12/14/21 01:45 Alkaline Phosphatase 63 U/L (45-117) 12/14/21 01:45 Diet: Regular Activity: Ad charley Followup: Delroy Alfaro MD [ACTIVE - CAN ADMIT] - Time spent managing pt's care (in minutes): 20
== END 2021-12-14 12:51 | disposition left against medical advice (07) | DRG 894 ==
LOC: ER 16:32 → ERHOLD 21:59
PROVIDERS: ADMIT Internal Medicine; ATTEND Internal Medicine
DX: F14.10 Cocaine abuse, uncomplicated (principal); F12.10 Cannabis abuse, uncomplicated; I10 Essential (primary) hypertension; F10.129 Alcohol abuse with intoxication, unspecified; Z53.29 Procedure and treatment not carried out because of patient's decision for other reasons; Z20.822 Contact with and (suspected) exposure to COVID-19
CPT/HCPCS: 36415; 70450; 80048; 80053; 80076; 80307; 80320; 80329; 81003; 82550; 85025; 85610; 85730; 87804; 93005; 96365; 96366; 96375; 99285; J1650; J2405; J3411; J7030; J7799; U0003

== ENCOUNTER 2022-04-25 15:05 | Observation (INO) | payer SELFPAY ==
--- OUTSIDE RECORDS SUMMARY | 2022-04-25 15:08 | XMS REPORT | Continuity of Care Document ---
:1980 Author Organization [facility] t Address [address] [place] [address] Care Team Providers Name Role Phone OrtegaHina Primary Care Physician TRISTIAN STARKS Attending Clinician Unavailable Problems Condition Condition Condition Status Onset Resolution Last Treating Co mments Source Name Details Category Date Date Treatment Clinician Date Alcohol Alcohol Disease Active [facility] abuse abuse 12-19 ity of 00:00: [place] 00 [facility] Generalize Generalize Disease Active U nivers d d 12[place]19 [place] Aggressive Aggressive Disease Active U nivers behavior behavior 12-19 ity of 00:00: [place] 00 Medical Branch Anger Anger Disease Active Univers 803 ity of 00:00: [place] 00 [facility] Branch Allergies, Adverse Reactions, Alerts Allergy Allergy Status Severity Reaction(s) Onset Inactive Treating Comm ents Source Name Type Date Date Clinician NO KNOWN Drug Active Univers ALLERGIE Class ity of S [facility] [place] Social History Social Habit Start Date Stop Date Quantity Comments Source Exposure to 2021-12-09 2021-12-19 Not sure [facility] SARS-CoV-2 (event) 00:00:00 14:21:00 Medica l Branch [facility] [birth year] [facility] [place] [facility] Medical Branch Smoking Status Start Date Stop Date Source Tobacco smoking consumption Univ [facility] Medical unknown Branch Medications Ordered Filled Start Stop Current Ordering Indication Dosage Frequency Signature Comments Components Source Medication Medication Date Date Medication? Clinician (SIG) Name Name ondansetron 4mg 4 mg, Slow Univers (ZOFRAN 12-19 IV Push, ity of (PF)) 20:30: 19:59 ONCE, 1 [place] injection 4 00 :00 dose, On Medi jeremias mg Fri12/19/21 Branch at 1530, ALEJANDRA NaCl 0.9% 1000mL at 999 Uni vers (NS) bolus 12-19 mL/hr, ity of infusion 20:30: 21:02 1,000 mL, Bakari as 1,000 mL 00 :00 IV Medical Infusion, Branch ONCE, 1 dose, On Fri12/19/21 at 1530, ALEJANDRA Vital Signs Vital Name Observation Time Observation Value Comments Source Body temperature 2021-12-19 19:17:00 36.67 Corina [facility] Systolic blood 2021-12-19 19:16:00 129 mm[Hg] [facility] Diastolic blood 2021-12-19 19:16:00 95 mm[Hg] [facility] Heart rate 2021-12-19 19:16:00 100 /min [facility] Respiratory rate 2021-12-19 19:16:00 16 /min [facility] Body height 2021-12-19 19:16:00 180.3 cm [facility] Body weight 2021-12-19 19:16:00 77.111 kg [facility] BMI 2021-12-19 19:16:00 23.71 kg/m2 [facility] Oxygen saturation in 2021-12-19 19:16:00 99 /min [facility] Arterial blood by [place] Medi jeremias Pulse oximetry Branch Procedures Procedure Date / Time Performed Performing Clinician Sourc e LIPASE 2021-12-19 19:47:00 Raudel [facility] COMP. METABOLIC PANEL 2021-12-19 19:47:00 Tristian Starks [facility] ([id number]) [facility] CBC WITH DIFF 2021-12-19 19:47:00 Raudel [facility] Encounters Start End Encounter Admission Attending Care Care Encounter Source Date/Time Date/Time Type Type Clinicians Facility Department ID 2021-12-19 2021-12-19 Emergency X RAUDEL [facility] ERT [id number] 14:23:00 16:06:00 TRISTIAN nikkimomo of [facility] [place] 2021-12-19 2021-12-19 Emergency Raudel [facility] [id number] [facility] 14:23:00 16:06:00 Tristian STEVENSON [id number] i ty of BOB WHITE [id number] [facility] [id number] [place] [id number] Branch Results Test Description Test Time Test Comments Results Result Comments Source COMP. METABOLIC PANEL (24132) 2021-12-19 20:12:45 Test Item Value Reference Range Interpretation Comme nts NA (test code = 8203853262) 142 mmol/L 135-145 K (test code = 6725848663) 4.2 mmol/L 3.5-5 CL (test code = 9506495397) 105 mmol/L 98-108 CO2 TOTAL (test code = 6462106341) 26 mmol/L 23-31 AGAP (test code = 7006317854) 2-16 BUN (test code = 1846554536) 6 mg/dL 7-23 L GLUCOSE (test code = 9294609252) 90 mg/dL 70-110 CREATININE (test code = 0.57 mg/dL 0.6-1.25 L 0548196963) TOTAL BILI (test code = 0.4 mg/dL 0.1-1.8 9333003984) CALCIUM (test code = 7992778348) 9.3 mg/dL 8.6-10.6 T PROTEIN (test code = 4826293786) 7.5 g/dL 6.3-8.2 ALBUMIN (test code = 5486117125) 4.6 g/dL 3.5-5 ALK PHOS (test code = 2486741902) 68 U/L 34-122 ALTv (test code = 1742-6) 103 U/L 5-50 H AST(SGOT) (test code = 2566617090) 129 U/L 13-40 H eGFR (test code = 4881072584) mL/min/1.73m2 KRISHAN (test code = KRISHAN) Association of Glomerular Filtration Rate (GFR) and Staging of Kidney Disease* + +-------- + ------+| GFR (mL/min/1.73 m2) ?| With Kidney Damage ?| ?Without Kidney Damage+ +-- + +| ?>90 ?| ?Stage one ?| ? Normal ?+ +------- + -------+| ?60-89 ?| ?Stage two ?| ? Decreased GFR ? + +-------- + ------+| ?30-59 ?| ?Stage three ?| ? Stage three ? + +-------- + ------+| ?15-29 ?| ?Stage four ? | ? Stage four ?+ +------- + -------+| ?<15 (or dialysis) ? ?| ?Stage five ? | ? Stage five ?+ +------- + -------+ *Each stage assumes the associated GFR level has been in effect for at least three months. ?Stages 1 to 5, with or without kidney disease, indicate chronic kidney disease. Notes: Determination of stages one and two (with eGFR >59mL/min/1.73 m2) requires estimation of kidney damage for at least three months as defined by structural or functional abnormalities of the kidney, manifested by either:Pathological abnormalities or Markers of kidney damage (including abnormalities in the composition of the blood or urine or abnormalities in imaging tests). Lab Interpretation (test code = Abnormal 03491-5) [facility] Test Item Value Reference Range Interpretation Comments LIPASE (test code = 4537685548) 70 U/L 0-220 Lab Interpretation (test code = Normal 86684-8) [facility] WITH [id number] 20:06:03 Test Item Value Reference Range Interpretation Comments WBC (test code = See_Comment [Automated 1216-2) message] The sy stem which generated this result transmitted reference range : 4.20 - 10.70 10*3/?L. The reference range was not used to interpret this result as normal/abnormal . RBC (test code = See_Comment [Automated 779-8) message] The sy stem which generated this result transmitted reference range : 4.26 - 5.52 10*6/?L. The reference range was not used to interpret this result as normal/abnormal . HGB (test code = 14.7 g/dL 12.2-16.4 718-7) HCT (test code = 42.2 % 38.4-49.3 4544-3) MCV (test code = 96.1 fL 81.7-95.6 H 787-2) MCH (test code = 33.5 pg 26.1-32.7 H 785-6) MCHC (test code = 34.8 g/dL 31.2-35 786-4) RDW-SD (test code = 42.6 fL 38.5-51.6 15248-8) RDW-CV (test code = 12.0 % 12.1-15.4 L 788-0) PLT (test code = See_Comment L [Automated 777-3) message] The sy stem which generated this result transmitted reference range : 150 - 328 10*3/ ?L. The reference r los was not used to interpret this result as normal/abnormal . MPV (test code = 10.5 fL 9.8-13 34235-1) NRBC/100 WBC (test See_Comment [Automat ed code = 1128076882) message] The system which generated this result transmitted reference range : 0.0 - 10.0 /100 WBCs. The refer ence range was not u sed to interpret th is result as normal/abnormal . NRBC x10^3 (test code See_Comment [Auto mated = 5381542035) message] The s ystem which generated this result transmitted reference range : 10*3/?L. The reference range was not used to interpret this result as normal/abnormal . GRAN MAT (NEUT) % 42.7 % (test code = 770-8) IMM GRAN % (test code 0.60 % = 3953035432) LYMPH % (test code = 41.6 % 736-9) MONO % (test code = 10.6 % 5905-5) EOS % (test code = 3.5 % 713-8) BASO % (test code = 1.0 % 706-2) GRAN MAT x10^3(ANC) 2.09 10*3/uL 1.99-6.95 (test code = 8568196130) IMM GRAN x10^3 (test 0.03 10*3/uL 0-0.06 code = 4117714211) LYMPH x10^3 (test code 2.04 10*3/uL 1.09-3.23 = 731-0) MONO x10^3 (test code 0.52 10*3/uL 0.36-1.02 = 742-7) EOS x10^3 (test code = 0.17 10*3/uL 0.06-0.53 711-2) BASO x10^3 (test code 0.05 10*3/uL 0.01-0.09 = 704-7) Lab Interpretation Abnormal (test code = 14007-8) [facility]"
[2022-04-25 15:24] LABS: Absolute Lymphocytes (CBC) 2.5 K/uL (0.7-4.9); Hematocrit 38.4 % (39.6-49.0); Lymphocytes % 41.4 % (15.3-44.8); MCV 94.8 fL (80-100); MPV 8.2 fL (7.6-11.3); RBC Red Blood Cell Count 4.05 M/uL (4.33-5.43)
[2022-04-25 15:30] LABS: Protime INR 0.96
--- NOTE | 2022-04-25 15:37 | RAD REPORT ---
EXAM DESCRIPTION: CT - Head Brain Wo Cont - 04/25/2022 3:32 pm CLINICAL HISTORY: syncope, HTN Headache, drowsiness, hypertension COMPARISON: Head Brain Wo Cont dated 12/13/2021 TECHNIQUE: All CT scans are performed using dose optimization technique as appropriate and may inclu de automated exposure control or mA/KV adjustment according to patient size. FINDINGS: No intracranial hemorrhage, hydrocephalus or extra-axial fluid collection.No areas of brai n edema or evidence of midline shift. The paranasal sinuses and mastoids are clear. The calvarium is intact. IMPRESSION: No acute intracranial abnormality.
[2022-04-25] MEDS ORDERED: NA CHLORIDE 0.9% 1,000 ML ONE ×2 (15:38→16:57)
[2022-04-25] MEDS ORDERED: LORazepam 2 MG/ML VIAL ONE ×2 (15:38→22:07)
[2022-04-25 15:45] LABS: Bilirubin Direct 0.1 mg/dL (0-0.2); Bilirubin Total 0.3 mg/dL (0.2-1.0); Magnesium 1.9 mg/dL (1.6-2.4); Potassium 3.3 mmol/L (3.5-5.1); Protein, Total 7.8 g/dL (6.4-8.2); Troponin High Sensitivity 7.1 pg/mL (<58.9)
[2022-04-25 15:51] LABS: Urine Blood Negative (Negative); Urine Glucose Negative (Negative); Urine Protein Negative (Negative); Urine Specific Gravity <=1.005 (1.005-1.030); Urine pH 5.5 (5.0-7.0)
[2022-04-25 16:05] LABS: Barbiturates NEGATIVE (NEGATIVE); Benzodiazepines NEGATIVE (NEGATIVE); Cocaine NEGATIVE (NEGATIVE); METHAMPHETAM NEGATIVE (NEGATIVE); Methadone NEGATIVE (NEGATIVE); Opiates NEGATIVE (NEGATIVE); Phencyclidine NEGATIVE (NEGATIVE); THC Cannibis POSITIVE (NEGATIVE)
--- NOTE | 2022-04-25 16:13 | RAD REPORT ---
EXAM DESCRIPTION: RAD - Chest Single View - 04/25/2022 4:01 pm CLINICAL HISTORY: syncope, HTN Chest pain. COMPARISON: Chest Single View dated 02/02/2021; Chest Single View dated 08/14/2020 FINDINGS: Portable technique limits examination quality. The lungs are grossly clear. The heart is normal in size. No displaced fractures. IMPRESSION: No acute intrathoracic process suspected.
[2022-04-25 16:31] LABS: SARS-COV-2 RT PCR NEGATIVE (NEGATIVE)
--- NOTE | 2022-04-25 16:42 | ER ---
Nurse's Notes [facility] Name: Abiodun Lara Age: 42 yrs Sex: Male : 1980 Arrival Date: 04/25/2022 Time: 15:00 Bed 6 Private MD: Diagnosis: Syncope, multiple episodes;Alcohol abuse with intoxication, unspecified;Anxiety disorder, unspecified Presentation: 04/25 15:00 Chief complaint: EMS states: Toned out by family for stumbling. Pt weak and diaphoretic hb on scene, BP 160/100, HR 124, 99% on RA. Chronic, long standing alcohol abuse, last drink yesterday. Coronavirus screen: At this time, the client does not indicate any symptoms associated with coronavirus-19. Ebola Screen: No symptoms or risks identified at this time. Onset of symptoms is unknown. Care prior to arrival: Glucose check: 99. 15:00 Method Of Arrival: EMS: [facility] hb 15:31 Initial Sepsis Screen: Does the patient meet any 2 criteria? No. Patient's initial jl7 sepsis screen is negative. Does the patient have a suspected source of infection? No. Patient's initial sepsis screen is negative. Risk Assessment: Do you want to hurt yourself or someone else? Patient reports no desire to harm self or others. 15:31 Acuity: CHENTE 2 jl7 Triage Assessment: 04/26 08:22 General: Appears ill, Behavior is calm. Pain: Denies pain. ap3 Historical: - Allergies: 04/25 15:03 No Known Allergies; hb - PMHx: 15:03 Anxiety; chronic back pain; Hypertension; Alcoholism; hb - Immunization history:: Adult Immunizations unknown. - Social history:: Smoking status: unknown Patient uses alcohol, on a daily basis. - Family history:: not pertinent. - Hospitalizations: : No recent hospitalization is reported. Screenin:34 Abuse screen: Denies threats or abuse. Denies injuries from another. Nutritional jl7 screening: No deficits noted. Tuberculosis screening: No symptoms or risk factors identified. Fall Risk IV access (20 points). Total Shepherd Fall Scale indicates No Risk (0-24 pts). Assessment: 16:09 Reassessment: Patient appears in no apparent distress at this time. Patient and/or hb family updated on plan of care and expected duration. Pain level reassessed. 17:13 Reassessment: Patient appears in no apparent distress at this time. No changes from hb previously documented assessment. Patient and/or family updated on plan of care and expected duration. Pain level reassessed. 18:42 Reassessment: Patient appears in no apparent distress at this time. No changes from jl7 previously documented assessment. Patient and/or family updated on plan of care and expected duration. Pain level reassessed. 19:15 Reassessment: Patient appears in no apparent distress at this time. Patient and/or jb4 family updated on plan of care and expected duration. Pain level reassessed. Patient is alert, oriented x 3, equal unlabored respirations, skin warm/dry/pink. 20:30 Reassessment: Patient appears in no apparent distress at this time. Patient and/or jb4 family updated on plan of care and expected duration. Pain level reassessed. Patient is alert, oriented x 3, equal unlabored respirations, skin warm/dry/pink. 21:30 Reassessment: Patient appears in no apparent distress at this time. Patient and/or jb4 family updated on plan of care and expected duration. Pain level reassessed. Patient is alert, oriented x 3, equal unlabored respirations, skin warm/dry/pink. 22:30 Reassessment: Pt resting in bed with no s/s of pain or distress noted. Respirations are jb4 even and unlabored. 23:30 Reassessment: Patient appears in no apparent distress at this time. No changes from jb4 previously documented assessment. Patient and/or family updated on plan of care and expected duration. Pain level reassessed. Vital Signs: 15:31 BP 140 / 106; Pulse 102; Resp 15; Temp 98.8; Pulse Ox 99% ; jl7 16:07 BP 148 / 88; Pulse 88; Resp 16; Pulse Ox 99% on R/A; hb 17:13 BP 136 / 96; Pulse 99; Resp 15; Pulse Ox 100% on R/A; hb 18:42 BP 117 / 72; Pulse 86; Resp 15; Pulse Ox 99% on R/A; jl7 19:30 BP 126 / 95; Pulse 86; Resp 16; Pulse Ox 95% on R/A; jb4 20:30 BP 122 / 85; Pulse 87; Resp 14; Pulse Ox 97% on R/A; jb4 21:30 BP 150 / 105; Pulse 87; Resp 16; Pulse Ox 93% on R/A; jb4 22:30 BP 134 / 95; Pulse 82; Resp 16; Pulse Ox 91% on R/A; jb4 23:30 BP 128 / 90; Pulse 92; Resp 13; Pulse Ox 93% ; jb4 ED Course: 15:00 Patient arrived in ED. hb 15:00 Joe Marti MD is Attending Physician. rn 15:03 Arm band placed on right wrist. hb 15:15 Initial lab(s) drawn, by me, sent to lab. EKG done, by ED staff, reviewed by Joe Marti MD. Inserted saline lock: 18 gauge in right antecubital area, using aseptic technique. Blood collected. 15:33 CT Head Brain wo Cont In Process Unspecified. EDMS 15:33 Triage completed. jl7 15:34 Patient has correct armband on for positive identification. Bed in low position. Call jl7 light in reach. Side rails up X2. Client placed on continuous cardiac and pulse oximetry monitoring. NIBP monitoring applied. 16:03 Chest Single View XRAY In Process Unspecified. EDMS 16:06 Aide Aiken, RN is Primary Nurse. hb 16:40 Delroy Alfaro MD is Hospitalizing Provider. rn 04/26 08:22 No provider procedures requiring assistance completed. IV discontinued, intact, ap3 bleeding controlled, No redness/swelling at site. Pressure dressing applied. Administered Medications: 04/25 15:42 Drug: NS 0.9% 1000 ml Route: IV; Rate: 1000 ml; Site: right antecubital; hb 15:42 Drug: Ativan (LORazepam) 2 mg Route: IVP; Site: right antecubital; hb 16:30 Follow up: Response: No adverse reaction hb 16:54 Drug: Potassium Chloride 20 mEq Route: IV; Rate: calculated rate; Site: right hb antecubital; 19:24 Follow up: Response: No adverse reaction; IV Status: Completed infusion; IV Intake: jb4 100ml Medication: 15:34 VIS not applicable for this client. jl7 Intake: 19:24 IV: 100ml; Total: 100ml. jb4 Outcome: 16:42 Decision to Hospitalize by Provider. rn 04/26 08:22 Admitted to ER Hold. Please see [facility] for further documentation. ap3 Condition: good Instructed on the need for admit. 08:23 Patient left the ED. ap3 Signatures: Dispatcher [employer] EDJoe Davis MD MD rn Baxter, Heather, RN RN Roge Hodges RN RN jb4 Jie Galvan RN RN jl7 Lori Whitlock RN RN ap3 Corrections: (The following items were deleted from the chart) 04/25 16:09 16:09 Reassessment: Patient appears in no apparent distress at this time. Patient hb and/or family updated on plan of care and expected duration. Pain level reassessed. Patient is alert, oriented x 3, equal unlabored respirations, skin warm/dry/pink. hb
--- NOTE | 2022-04-25 16:43 | EDPHYS ---
Physician Documentation [facility] Name: Abiodun Lara Age: 42 yrs Sex: Male : 1980 Arrival Date: 04/25/2022 Time: 15:00 Bed 6 Private MD: ED Physician Joe Marti HPI: 04/25 15:36 This 42 yrs old Male presents to ER via EMS with complaints of palpitations, rn syncope. 15:36 The patient presents with a history of heart racing. Context: The symptoms occur at rn rest. Onset: The symptoms/episode began/occurred yesterday. Duration: The patient or guardian reports multiple episodes, that are intermittent. Modifying factors: The symptoms are aggravated by nothing. The symptoms are alleviated by nothing. Severity of symptoms: At their worst the symptoms were moderate in the emergency department the symptoms are unchanged. The patient has not experienced similar symptoms in the past. The patient has not recently seen a physician. Pt reports having "bad anxiety", palpitations, multiple syncopal episodes. + daily drinker. Last drink yesterday. Denies drugs. No chest pain. No sob. No abd pain. . Historical: - Allergies: 15:03 No Known Allergies; hb - PMHx: 15:03 Anxiety; chronic back pain; Hypertension; Alcoholism; hb - Immunization history:: Adult Immunizations unknown. - Social history:: Smoking status: unknown Patient uses alcohol, on a daily basis. - Family history:: not pertinent. - Hospitalizations: : No recent hospitalization is reported. ROS: 15:36 Constitutional: Negative for fever, chills, and weight loss, Eyes: Negative for injury, rn pain, redness, and discharge, Neck: Negative for injury, pain, and swelling, Cardiovascular: + palpitations Respiratory: Negative for shortness of breath, cough, wheezing, and pleuritic chest pain, Abdomen/GI: Negative for abdominal pain, nausea, vomiting, diarrhea, and constipation, Back: Negative for injury and pain, MS/Extremity: Negative for injury and deformity, Skin: Negative for injury, rash, and discoloration, Neuro: Negative for seizure Exam: 15:36 Constitutional: This is a well developed, well nourished patient who is awake, alert, rn very anxious and have to redirect him constantly Head/Face: Normocephalic, atraumatic. Eyes: No nystagmus ENT: dry MM Cardiovascular: Tachycardic, regular Respiratory: Mild tachypnea, no retractions. Abdomen/GI: Soft, non-tender Skin: Warm, dry MS/ Extremity: Pulses equal, no cyanosis. Neuro: Awake and alert, GCS 15, oriented to person, place, time, and situation. Cranial nerves II-XII grossly intact. Motor strength 5/5 in all extremities. Sensory grossly intact. Vital Signs: 15:31 BP 140 / 106; Pulse 102; Resp 15; Temp 98.8; Pulse Ox 99% ; jl7 16:07 BP 148 / 88; Pulse 88; Resp 16; Pulse Ox 99% on R/A; hb 17:13 BP 136 / 96; Pulse 99; Resp 15; Pulse Ox 100% on R/A; hb 18:42 BP 117 / 72; Pulse 86; Resp 15; Pulse Ox 99% on R/A; jl7 19:30 BP 126 / 95; Pulse 86; Resp 16; Pulse Ox 95% on R/A; jb4 20:30 BP 122 / 85; Pulse 87; Resp 14; Pulse Ox 97% on R/A; jb4 21:30 BP 150 / 105; Pulse 87; Resp 16; Pulse Ox 93% on R/A; jb4 22:30 BP 134 / 95; Pulse 82; Resp 16; Pulse Ox 91% on R/A; jb4 23:30 BP 128 / 90; Pulse 92; Resp 13; Pulse Ox 93% ; jb4 MDM: 15:01 Patient medically screened. rn 16:38 Differential diagnosis: arrythmia, dehydration, stress disorder, drug related illness, rn anxiety, hyperventilation, syncope, ETOH related illness. Data reviewed: vital signs, nurses notes, lab test result(s), EKG, radiologic studies, CT scan, plain films, and as a result, I will admit patient. Counseling: I had a detailed discussion with the patient and/or guardian regarding: the historical points, exam findings, and any diagnostic results supporting the discharge/admit diagnosis, lab results, radiology results, the need for further work-up and treatment in the hospital. Response to treatment: the patient's symptoms have markedly improved after treatment, and as a result, I will admit patient. Admission orders: after a detailed discussion of the patient's condition and case, the admit orders are written by me. 04/25 15:09 Order name: Basic Metabolic Panel; Complete Time: 16:10 rn 04/25 15:09 Order name: CBC with Diff; Complete Time: 16:10 rn 04/25 15:09 Order name: Hepatic Function; Complete Time: 16:10 rn 04/25 15:09 Order name: Magnesium; Complete Time: 16:10 rn 04/25 15:09 Order name: Protime (+inr); Complete Time: 16:10 rn 04/25 15:09 Order name: Ptt, Activated; Complete Time: 16:10 rn 04/25 15:09 Order name: Troponin High Sensitivity; Complete Time: 16:10 rn 04/25 15:09 Order name: UDS; Complete Time: 16:10 rn 04/25 15:11 Order name: ETOH Level; Complete Time: 16:10 rn 04/25 15:40 Order name: COVID-19/FLU A+B; Complete Time: 16:32 rn 04/25 15:52 Order name: Urine Dipstick-Ancillary; Complete Time: 16:10 EDMS 04/25 15:53 Order name: Glucose, Ancillary Testing; Complete Time: 16:10 EDMS 04/25 17:17 Order name: Ammonia EDMS 04/25 17:17 Order name: Thyroid Stimulating Hormone EDMS 04/25 15:09 Order name: CT Head Brain wo Cont; Complete Time: 16:10 rn 04/25 15:09 Order name: Chest Single View XRAY; Complete Time: 16:19 rn 04/25 15:09 Order name: EKG; Complete Time: 15:09 rn 04/25 15:09 Order name: Cardiac monitoring; Complete Time: 15:34 rn 04/25 17:17 Order name: Regular EDMS 04/25 17:17 Order name: CBC with Automated Diff EDMS 04/25 17:17 Order name: CBC with Automated Diff EDMS 04/25 17:17 Order name: CBC with Automated Diff EDMS 04/25 17:17 Order name: CBC with Automated Diff EDMS 04/25 17:17 Order name: Comprehensive Metabolic Panel EDMS 04/25 17:17 Order name: Comprehensive Metabolic Panel EDMS 04/25 17:17 Order name: Comprehensive Metabolic Panel EDMS 04/25 17:17 Order name: Comprehensive Metabolic Panel EDMS 04/25 15:09 Order name: EKG - Nurse/Tech; Complete Time: 15:34 rn 04/25 15:09 Order name: IV Saline Lock; Complete Time: 15:34 rn 04/25 15:09 Order name: Labs collected and sent; Complete Time: 15:34 rn 04/25 15:09 Order name: O2 Per Protocol; Complete Time: 15:34 rn 04/25 15:09 Order name: O2 Sat Monitoring; Complete Time: 15:34 rn 04/25 15:09 Order name: Urine Dipstick-Ancillary (obtain specimen); Complete Time: 15:42 rn 04/25 15:09 Order name: Glucose Level; Complete Time: 15:42 rn Administered Medications: 15:42 Drug: NS 0.9% 1000 ml Route: IV; Rate: 1000 ml; Site: right antecubital; hb 15:42 Drug: Ativan (LORazepam) 2 mg Route: IVP; Site: right antecubital; hb 16:30 Follow up: Response: No adverse reaction hb 16:54 Drug: Potassium Chloride 20 mEq Route: IV; Rate: calculated rate; Site: right hb antecubital; 19:24 Follow up: Response: No adverse reaction; IV Status: Completed infusion; IV Intake: jb4 100ml Disposition Summary: 04/25/22 16:42 Hospitalization Ordered Hospitalization Status: Observation rn Provider: Delroy Alfaro rn Condition: Stable rn Problem: new rn Symptoms: have improved rn Bed/Room Type: Standard [facility] 20:25[facility] rv1 Room Assignment: ERHOLD-(04/25/22 20:25) rv1 Diagnosis - Syncope, multiple episodes rn - Alcohol abuse with intoxication, unspecified rn - Anxiety disorder, unspecified rn Forms: - Medication Reconciliation Form rn - SBAR form rn Signatures: Dispatcher [employer] EDMD Joe Marti MD MD rn Baxter, Heather RN RN Jie White RN RN Yumiko Bustillos rv1 Roge Hodges RN jb4 Corrections: (The following items were deleted from the chart) 20:25 16:42 Telemetry/MedSurg (observation) rn rv1 20:25 16:42 rn rv1
[2022-04-25] MEDS ORDERED: KCL 20 MEQ/100 mL IVPB 100 ML IV ONE (16:57)
[2022-04-25] MEDS ORDERED: HYDRALAZINE HCL 20 MG/ML VIAL IV PRN (17:12)
[2022-04-25] MEDS ORDERED: LORazepam 2 MG/ML VIAL IV ONE (17:17)
--- NOTE | 2022-04-25 17:20 | P.HP ---
Certification for Inpatient Patient admitted to: Observation With expected LOS: <2 Midnights Practitioner: I am a practitioner with admitting privileges, knowledge of patient current condition, hospital course, and medical plan of care. Services: Services provided to patient in accordance with Admission requirements found in Title 42 Section 412.3 of the Code of Federal Regulations Patient History Date of Service: 04/25/22 Primary Care Provider: Joyce Ortega Reason for admission: alcohol abuse History of Present Illness: Patient is an office patient of Mrs. Joyce Ortega. He has a history of alcohol abuse. Was admitted for cocaine this past November. He has been to rehab since. He has relapsed recently. Was altered and his called. EMS. He was having a few syncopal episodes. The patient states he has only been drinking for 2 days. However his is not sure how long he has been drinking. She has been finding bottles hidden around the house. The patient has also tested positive for marijuana on this admission He is currently awake alert and speaks well. Allergies No Known Allergies Allergy (Unverified 12/14/21 08:20) - Social History Alcohol use: Yes CD- Drugs: Yes Review of Systems 10-point ROS is otherwise unremarkable Neurological: Confusion Physical Examination - Physical Exam General: Alert, In no apparent distress HEENT: Atraumatic, PERRLA, Mucous membr. moist/pink, EOMI, Sclerae nonicteric Neck: Supple, 2+ carotid pulse no bruit, No LAD, Without JVD or thyroid abnormality Respiratory: Clear to auscultation bilaterally, Normal air movement Cardiovascular: Regular rate/rhythm, Normal S1 S2 Gastrointestinal: Normal bowel sounds, No tenderness Musculoskeletal: No tenderness Integumentary: No rashes Neurological: Normal gait, Normal speech, Normal strength at 5/5 x4 extr, Normal tone, Normal affect Lymphatics: No axilla or inguinal lymphadenopathy - Studies Laboratory Data (last 24 hrs) 04/25/22 15:16: PT 10.6, INR 0.96, APTT 30.1 04/25/22 15:16: WBC 6.20, Hgb 13.2 L, Hct 38.4 L, Plt Count 178 04/25/22 15:16: Sodium 141, Potassium 3.3 L, BUN 7, Creatinine 0.91, Glucose 87, Magnesium 1.9, Total Bilirubin 0.3, AST 66 H, ALT 58, Alkaline Phosphatase 83 Assessment and Plan - Problems (Diagnosis) (1) Polysubstance abuse Current Visit: No Status: Chronic Plan: will Start him on thiamine. He has no reported agitation. No history of DT's. Will give ativan for agitation. Hydralazine for any reactive htn. The patient can be discharged if he is stable in the morning. Have discussed antidepressants and naltraxone for maintaing sobriety. Will provide him with outpatient resources such as AA meeting and rehab centers. Discharge Plan: Home Plan to discharge in: 24 Hours - Advance Directives Does patient have a Living Will: No Does patient have a Durable POA for Healthcare: No - Code Status/Comfort Care Code Status Assessed: Yes Code Status: Full Code Physician Review: Patient Assessed, Agree with Above Assessment and Plan Critical Care: No Time Spent Managing Pts Care (In Minutes): 45
[2022-04-25] MEDS ORDERED: ENOXAPARIN 40 MG/0.4 ML SQ SCH (18:00)
[2022-04-25] MEDS ORDERED: ENOXAPARIN 40 MG/0.4 ML SQ ONE (22:08)
[2022-04-26] MEDS ORDERED: MORPHINE 4 MG/ML SYR ONE (00:35)
[2022-04-26] MEDS ORDERED: MAGNES/ALUMIN/SIMET 30ML UCUP ONE (00:35)
[2022-04-26] MEDS ORDERED: MAGNES/ALUMIN/SIMET 30ML UCUP PO PRN (01:00)
[2022-04-26] MEDS ORDERED: MORPHINE 4 MG/ML SYR IV ONE (01:00)
[2022-04-26] MEDS ORDERED: MAGNES/ALUMIN/SIMET 30ML UCUP PO SCH (01:00)
[2022-04-26] MEDS ORDERED: chlordiazePOXIDE HCl 25 MG CAP PO PRN (01:37)
[2022-04-26] MEDS ORDERED: chlordiazePOXIDE HCl 25 MG CAP ONE (01:42)
[2022-04-26 03:45] VITALS: BMI 25.7
[2022-04-26 04:19] VITALS: BP 139/95; TEMP 97.5
[2022-04-26] MEDS ORDERED: PANTOPRAZOLE 40MG TABLET PO SCH (06:30)
[2022-04-26 07:16] LABS: Absolute Lymphocytes (CBC) 1.6 K/uL (0.7-4.9); Hematocrit 37.3 % (39.6-49.0); Lymphocytes % 20.4 % (15.3-44.8); MCV 95.3 fL (80-100); MPV 8.4 fL (7.6-11.3); RBC Red Blood Cell Count 3.92 M/uL (4.33-5.43)
[2022-04-26 07:40] LABS: Albumin 3.8 g/dL (3.4-5.0); Bilirubin Total 0.3 mg/dL (0.2-1.0); Potassium 3.3 mmol/L (3.5-5.1); Protein, Total 7.2 g/dL (6.4-8.2); Thyroid Stimulating Hormone 0.508 uIU/mL (0.358-3.740)
--- NOTE | 2022-04-26 07:52 | P.DS ---
Admission Date: 04/25/22 Discharge Date: 04/26/22 Primary Care Provider: Joyce Ortega Disposition: ROUTINE DISCHARGE Discharge Condition: GOOD Reason for Admission: alcohol abuse - Problems (1) Polysubstance abuse Current Visit: No Status: Chronic Brief History of Present Illness: Patient is an office patient of Mrs. Joyce Ortega. He has a history of alcohol abuse. Was admitted for cocaine this past November. He has been to rehab since. He has relapsed recently. Was altered and his called. EMS. He was having a few syncopal episodes. The patient states he has only been drinking for 2 days. However his is not sure how long he has been drinking. She has been finding bottles hidden around the house. The patient has also tested positive for marijuana on this admission He is currently awake alert and speaks well. Hospital Course: Patient was admitted for alterer mental status and alcohol use disorder. Was agitated in the evening. However did better with benzodiazepams. He is asking to go home. Will give him a script for buproprion. Will add naloxone for office EHR. have him follow up in a week in the office. Vital Signs/Physical Exam: Temp Pulse Resp BP Pulse Ox 97.5 F 110 H 18 139/95 H 94 04/26/22 04:00 04/26/22 04:00 04/26/22 04:00 04/26/22 04:00 04/26/22 04:00 General: Alert, In no apparent distress HEENT: Atraumatic, PERRLA, EOMI Neck: Supple, JVD not distended Respiratory: Clear to auscultation bilaterally, Normal air movement Cardiovascular: Regular rate/rhythm, Normal S1 S2 Gastrointestinal: Normal bowel sounds, No tenderness Musculoskeletal: No tenderness Integumentary: No rashes Neurological: Normal speech, Normal tone, Normal affect Lymphatics: No axilla or inguinal lymphadenopathy Laboratory Data at Discharge: WBC 7.90 K/uL (4.3-10.9) 04/26/22 06:59 Hgb 13.0 g/dL (13.6-17.9) L 04/26/22 06:59 Hct 37.3 % (39.6-49.0) L 04/26/22 06:59 Plt Count 147 K/uL (152-406) L 04/26/22 06:59 PT 10.6 SECONDS (9.5-12.5) 04/25/22 15:16 INR 0.96 04/25/22 15:16 APTT 30.1 SECONDS (24.3-36.9) 04/25/22 15:16 Sodium 140 mmol/L (136-145) 04/26/22 06:59 Potassium 3.3 mmol/L (3.5-5.1) L 04/26/22 06:59 BUN 7 mg/dL (7-18) 04/26/22 06:59 Creatinine 0.85 mg/dL (0.70-1.30) 04/26/22 06:59 Glucose 81 mg/dL (74-106) 04/26/22 06:59 Magnesium 1.9 mg/dL (1.6-2.4) 04/25/22 15:16 Total Bilirubin 0.3 mg/dL (0.2-1.0) 04/26/22 06:59 AST 74 U/L (15-37) H 04/26/22 06:59 ALT 60 U/L (16-61) 04/26/22 06:59 Alkaline Phosphatase 90 U/L (45-117) 04/26/22 06:59 Home Medications: Buproprion S.r. [Wellbutrin Sr*] 150 mg PO DAILY 90 Days #90 tab 04/26/22 New Medications: Buproprion S.r. [Wellbutrin Sr*] 150 mg PO DAILY 90 Days #90 tab Diet: Regular Activity: Ad charley Followup: Delroy Alfaro MD [Primary Care Provider] - 1 Week Time spent managing pt's care (in minutes): 30
[2022-04-26] MEDS ORDERED: INFLUENZA VACCINE (for 6+ mo) 0.5 ML DOSE IMVAC ONE (08:00)
[2022-04-26 08:44] VITALS: O2SAT 93
[2022-04-26] MEDS ORDERED: THIAMINE HCL 100 MG TABLET PO SCH (09:00)
--- NOTE | 2022-04-26 17:39 | EKG ---
Test Date: 2022-04-25 Test Time: 15:14:15 Deputy Felony Clerk: HB MEASUREMENT RESULTS: Intervals: Rate: 102 MA: 138 QRSD: 110 QT: 350 QTc: 456 [place]: P: 44 MA: 138 QRS: 58 T: 47 INTERPRETIVE STATEMENTS: Sinus tachycardia Otherwise normal ECG Compared to ECG 12/13/2021 18:17:56 Sinus rhythm no longer present Right-axis deviation no longer present Intraventricular conduction delay no longer present Electronically Signed On 04-26-22 17:37:41 DUMBWAITER OPERATOR by Raymundo Mccauley
== END 2022-04-26 08:23 | disposition home or self-care (01) ==
LOC: SUPCPDRO 15:05 → ER 15:05 → ERHOLD 17:13
PROVIDERS: ADMIT Internal Medicine; ATTEND Internal Medicine
DX: R41.82 Altered mental status, unspecified (principal); F10.10 Alcohol abuse, uncomplicated; F12.90 Cannabis use, unspecified, uncomplicated; Z20.822 Contact with and (suspected) exposure to COVID-19; Z23 Encounter for immunization
CPT/HCPCS: 0240U; 36415; 70450; 71045; 80048; 80053; 80076; 80307; 80320; 81003; 82140; 82947; 83735; 84443; 84484; 85025; 85610; 85730; 93005; 96365; 96366; 96375; 99285; G0378; J1650; J3480; J7030

== ENCOUNTER 2022-07-25 23:00 | Emergency (ER) | payer SELFPAY ==
--- OUTSIDE RECORDS SUMMARY | 2022-07-25 23:03 | XMS REPORT | Continuity of Care Document ---
:1980 Author Organization [facility] t Address [address] [facility] [address] [place] [address] Care Team Providers Name Role Phone OrtegaHina Primary Care Physician FARIDEH STARKS Attending Clinician Unavailable Payers Payer Name Policy Type Policy Number Effective Date Expiration Date S ource Problems Condition Condition Condition Status Onset Resolution Last Treating Co mments Source Name Details Category Date Date Treatment Clinician Date Alcohol Alcohol Disease Active Univers abuse abuse 12-19 ity of 00:00: [address] Generalize Generalize Disease Active U nivers d d 12-19 ity of abdominal abdominal 00:00: [facility] 00 [facility] Aggressive Aggressive Disease Active U nivers behavior behavior 12-19 ity of 00:00: [address] Anger Anger Disease Active Univers 8 ity of 00:00: [address] Allergies, Adverse Reactions, Alerts Allergy Allergy Status Severity Reaction(s) Onset Inactive Treating Comm ents Source Name Type Date Date Clinician NO KNOWN Drug Active Univers ALLERGIE Class ity of S [facility] Social History Social Habit Start Date Stop Date Quantity Comments Source Exposure to 2022-07-14 2022-07-24 Not sure [facility] SARS-CoV-2 (event) 00:00:00 20:53:00 Sex Assigned At [birth year] [facility] alth 00:00:00 00:00:00 Smoking Status Start Date Stop Date Source Tobacco smoking consumption Univ [facility] Branch Medications Ordered Filled Start Stop Current Ordering Indication Dosage Frequency Signature Comments Components Source Medication Medication Date Date Medication? Clinician (SIG) Name Name ondansetron 2021- No 4mg 4 mg, Slow Univers (ZOFRAN 12-19 IV Push, ity of (PF)) 20:30: 19:59 ONCE, 1 [place] injection 4 00 :00 dose, On Medi jeremias mg Fri12/19/21 Branch at 1530, ALEJANDRA NaCl 0.9% 1000mL at 999 Uni vers (NS) bolus 12-19 mL/hr, ity of infusion 20:30: 21:02 1,000 mL, Bakari as 1,000 mL 00 :00 IV [facility], Branch ONCE, 1 dose, On 12/19/21 at 1530, ALEJANDRA Vital Signs Vital Name Observation Time Observation Value Comments Source Body height 2022-07-24 20:53:00 180.3 cm [facility] Body weight 2022-07-24 20:53:00 81.647 kg [facility] BMI 2022-07-24 20:53:00 25.10 kg/m2 [facility] Oxygen saturation in 2022-07-24 20:53:00 97 /min [facility] Arterial blood by Pulse oximetry Systolic blood 2022-07-24 20:53:00 138 mm[Hg] [facility] pressure Diastolic blood 2022-07-24 20:53:00 100 mm[Hg] [facility] Heart rate 2022-07-24 20:53:00 97 /min [facility] Body temperature 2022-07-24 20:53:[address] [facility] Respiratory rate 2022-07-24 20:53:00 18 /min [facility] Body height 2022-07-24 20:53:00 180.3 cm [facility] Body weight 2022-07-24 20:53:00 81.647 kg [facility] BMI 2022-07-24 20:53:00 25.10 kg/m2 [facility] Oxygen saturation in 2022-07-24 20:53:00 97 /min [facility] Arterial blood by Pulse oximetry Systolic blood 2022-07-24 20:53:00 138 mm[Hg] [facility] pressure Diastolic blood 2022-07-24 20:53:00 100 mm[Hg] [facility] Heart rate 2022-07-24 20:53:00 97 /min [facility] Body temperature 2022-07-24 20:53:00 36.78 Corina [facility] Respiratory rate 2022-07-24 20:53:00 18 /min [facility] Body temperature 2021-12-19 19:17:00 36.67 Corina [facility] 2021-12-19 19:16:00 129 mm[Hg] Univer sity of pressure [facility] Diastolic blood 2021-12-19 19:16:00 95 mm[Hg] Unive rsity [facility] Heart rate 2021-12-19 19:16:00 100 /min [facility] Respiratory rate 2021-12-19 19:16:00 16 /min [facility] Body height 2021-12-19 19:16:00 180.3 cm [facility] Body weight 2021-12-19 19:16:00 77.111 kg [facility] BMI 2021-12-19 19:16:00 23.71 kg/m2 [facility] Oxygen saturation in 2021-12-19 19:16:00 99 /min [facility] Arterial blood by [facility] Pulse oximetry [facility] Procedures Procedure Date / Time Performed Performing Clinician Sour e 12 LEAD EKG 2022-07-24 21:10:34 [facility] L[facility] 2021-12-19 19:47:00 [facility]. METABOLIC PANEL 2021-12-19 19:47:00 Farideh [facility] ([id number]) [facility] CBC WITH DIFF 2021-12-19 19:47:00 [facility] Encounters Start End Encounter Admission Attending Care Care Encounter Source Date/Time Date/Time Type Type Clinicians Facility Department ID 2022-07-24 2022-07-24 Emergency [facility] MED [id number] [facility] 20:52:00 23:35:00 Health 2022-07-24 2022-07-24 Emergency ERON ITZEL [id number] [place] 20:52:00 23:35:00 GENERAL [facility].1.13.43 [facility] .[id number] 2021-12-19 Emergency X JOSÉ LUIS STARKS ERT [id number] Univers 14:23:00 16:06:00 NICKIETRISHA nikkimomo of 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 METABOLIC PANEL ([id number]) 2021-12-19 20:12:45 Test Item Value Reference Range Interpretation Comme nts NA (test code = 1416503266) 142 mmol/L 135-145 K (test code = 3338079511) 4.2 mmol/L 3.5-5 CL (test code = 1772008015) 105 mmol/L 98-108 CO2 TOTAL (test code = 7639241037) 26 mmol/L 23-31 AGAP (test code = 1196296511) 2-16 BUN (test code = 9395103745) 6 mg/dL 7-23 L GLUCOSE (test code = 5151126452) 90 mg/dL 70-110 CREATININE (test code = 0.57 mg/dL 0.6-1.25 L 9023264801) TOTAL BILI (test code = 0.4 mg/dL 0.1-1.0 9941943802) CALCIUM (test code = 4150162810) 9.3 mg/dL 8.6-10.6 T PROTEIN (test code = 0186262366) 7.5 g/dL 6.3-8.2 ALBUMIN (test code = 4499996656) 4.6 g/dL 3.5-5 ALK PHOS (test code = 9944774661) 68 U/L 34-122 ALTv (test code = 1742-6) 103 U/L 5-50 H AST(SGOT) (test code = 5503637420) 129 U/L 13-40 H eGFR (test code = 6543161895) mL/min/1.73m2 KRISHAN (test code = KRISHAN) Association [...] tests). Lab Interpretation (test code = Abnormal 89124-6) [facility]12[facility]24 Test Item Value Reference Range Interpretation Comments LIPASE (test code = 1535355364) 70 U/L 0-220 Lab Interpretation (test code = Normal 33604-0) [facility] WITH [id number] 20:06:03 Test Item Value Reference Range Interpretation Comments WBC (test code = See_Comment [Automated 6690-2) message] The sy stem which generated this result transmitted reference range : 4.20 - 10.70 10*3/?L. The reference range was not used to interpret this result as normal/abnormal . RBC (test code = See_Comment [Automated 789-8) message] The sy stem which generated this [...] RDW-SD (test code = 42.6 fL 38.5-51.6 54240-3) RDW-CV (test code = 12.0 % 12.1-15.4 L 788-0) PLT (test code = See_Comment L [Automated 777-3) message] The sy stem which generated this result transmitted reference range : 150 - 328 10*3/ ?L. The reference r los was not used to interpret this result as normal/abnormal . MPV (test code = 10.5 fL 9.8-13 42104-5) NRBC/100 WBC (test See_Comment [Automat ed code = 2682318173) message] The system which generated this result transmitted reference range : 0.0 - 10.0 /100 WBCs. The refer ence range was not u sed to interpret th is result as normal/abnormal . NRBC x10^3 (test code See_Comment [Auto mated = 3657847638) message] The s ystem which generated this result transmitted reference range : 10*3/?L. The reference range was not used to interpret this result as normal/abnormal . GRAN MAT (NEUT) % 42.7 % (test code = 770-8) IMM GRAN % (test code 0.60 % = 0423361888) LYMPH % (test code = 41.6 % 736-9) MONO % (test code = 10.6 % 5905-5) EOS % (test code = 3.5 % 713-8) BASO % (test code = 1.0 % 706-2) GRAN MAT x10^3(ANC) 2.09 10*3/uL 1.99-6.95 (test code = 6029700803) IMM GRAN x10^3 (test 0.03 10*3/uL 0-0.06 code = 9143557380) LYMPH x10^3 (test code 2.04 10*3/uL 1.09-3.23 = 731-0) MONO x10^3 (test code 0.52 10*3/uL 0.36-1.02 = 742-7) EOS x10^3 (test code = 0.17 10*3/uL 0.06-0.53 711-2) BASO x10^3 (test code 0.05 10*3/uL 0.01-0.09 = 704-7) Lab Interpretation Abnormal (test code = 64007-4) [facility]"
[2022-07-25] MEDS ORDERED: NA CHLORIDE 0.9% 2,000 ML ONE (23:27)
[2022-07-25] MEDS ORDERED: ONDANSETRON 4 MG/2 ML VIAL ONE ×2 (23:27→23:34)
[2022-07-25] MEDS ORDERED: THIAMINE 200 MG/2 ML INJ ONE (23:27)
[2022-07-25] MEDS ORDERED: FOLIC ACID 5 MG/ML VIAL ONE (23:28)
[2022-07-25] MEDS ORDERED: MULTIVITAMINS 10 ML VIAL (INJ) IV ONE (23:28)
[2022-07-25 23:57] LABS: Absolute Lymphocytes (CBC) 1.9 K/uL (0.7-4.9); Lymphocytes % 40.1 % (15.3-44.8); MCV 99.2 fL (80-100); MPV 8.4 fL (7.6-11.3); RBC Red Blood Cell Count 3.83 M/uL (4.33-5.43)
[2022-07-26 00:03] LABS: Protime INR 0.94
[2022-07-26 00:25] LABS: ALT/SGPT 232 U/L (16-61); AST/SGOT 234 U/L (15-37); Albumin 4.1 g/dL (3.4-5.0); Alkaline Phosphatase 68 U/L (45-117); BUN Blood Urea Nitrogen 9 mg/dL (7-18); Bicarbonate 25 mmol/L (21-32); Bilirubin Direct 0.2 mg/dL (0-0.2); Bilirubin Total 0.6 mg/dL (0.2-1.0); Glomerular Filtration Rate 124 ml/min (=/>90); Glucose Level 101 mg/dL (74-106); Potassium 3.5 mmol/L (3.5-5.1); Protein, Total 7.5 g/dL (6.4-8.2); Sodium Level 139 mmol/L (136-145)
[2022-07-26] MEDS ORDERED: LORazepam 2 MG/ML VIAL ONE (01:15)
[2022-07-26 01:24] LABS: Urine Blood Negative (Negative); Urine Glucose Negative (Negative); Urine Protein Negative (Negative); Urine pH 6.5 (5.0-7.0)
[2022-07-26 03:27] LABS: Barbiturates NEGATIVE (NEGATIVE); Benzodiazepines NEGATIVE (NEGATIVE); Cocaine NEGATIVE (NEGATIVE); METHAMPHETAM NEGATIVE (NEGATIVE); Methadone NEGATIVE (NEGATIVE); Opiates NEGATIVE (NEGATIVE); Phencyclidine NEGATIVE (NEGATIVE); THC Cannibis POSITIVE (NEGATIVE)
[2022-07-26 03:32] VITALS: BP 108/68; O2SAT 96
--- NOTE | 2022-07-29 13:15 | EKG ---
Test Date: 2022-07-25 Test Time: 23:35:56 Minister: MEASUREMENT RESULTS: Intervals: Rate: 80 AR: 140 QRSD: 120 QT: 382 QTc: 440 [place]: P: 60 AR: 140 QRS: 75 T: 47 INTERPRETIVE STATEMENTS: Normal sinus rhythm Nonspecific intraventricular conduction delay Borderline ECG Compared to ECG 04/25/2022 15:14:15 Intraventricular conduction delay now present Sinus tachycardia no longer present Electronically Signed On 07-29-22 13:08:38 CDT by Raymundo Mccauley
--- NOTE | 2022-08-09 15:06 | EDPHYS ---
Physician Documentation [facility] Name: Abiodun Lara Age: 42 yrs Sex: Male : 1980 Arrival Date: 07/25/2022 Time: 23:01 Bed 5 Private MD: ED Physician Lencho Zee HPI: 07/26 00:03 This 42 yrs old Male presents to ER via EMS with complaints of etoh abuse. geovanny 00:03 etoh abuse. The patient presents with agitation. Onset: The symptoms/episode geovanny began/occurred 3 day(s) ago. Possible causes: alcohol, head injury. Associated signs and symptoms: Pertinent positives: confusion. Patient's baseline: Neuro: alert and fully oriented. The patient has not experienced similar symptoms in the past. Historical: - Allergies: 07/25 23:05 No Known Allergies; as6 - PMHx: 23:05 Alcoholism; Anxiety; chronic back pain; Hypertension; as6 - Immunization history:: Client reports having NOT received the Covid vaccine. - Social history:: Smoking status: Patient denies any tobacco usage or history of. - Family history:: not pertinent. ROS: 07/26 00:03 Constitutional: Negative for fever, chills, and weight loss, Eyes: Negative for injury, geovanny pain, redness, and discharge, ENT: Negative for injury, pain, and discharge, Neck: Negative for injury, pain, and swelling, Cardiovascular: Negative for chest pain, palpitations, and edema, Respiratory: Negative for shortness of breath, cough, wheezing, and pleuritic chest pain, Abdomen/GI: Negative for abdominal pain, nausea, vomiting, diarrhea, and constipation, Back: Negative for injury and pain, : Negative for injury, bleeding, discharge, and swelling, MS/Extremity: Negative for injury and deformity, Skin: Negative for injury, rash, and discoloration, Psych: Negative for depression, anxiety, suicide ideation, homicidal ideation, and hallucinations, Allergy/Immunology: Negative for hives, rash, and allergies, Endocrine: Negative for neck swelling, polydipsia, polyuria, polyphagia, and marked weight changes, Hematologic/Lymphatic: Negative for swollen nodes, abnormal bleeding, and unusual bruising. Neuro: Positive for headache. Exam: 00:03 Constitutional: This is a well developed, well nourished patient who is awake, alert, geovanny and in no acute distress. Head/Face: Normocephalic, atraumatic. Eyes: Pupils equal round and reactive to light, extra-ocular motions intact. Lids and lashes normal. Conjunctiva and sclera are non-icteric and not injected. Cornea within normal limits. Periorbital areas with no swelling, redness, or edema. ENT: Nares patent. No nasal discharge, no septal abnormalities noted. Tympanic membranes are normal and external auditory canals are clear. Oropharynx with no redness, swelling, or masses, exudates, or evidence of obstruction, uvula midline. Mucous membranes moist. Neck: Trachea midline, no thyromegaly or masses palpated, and no cervical lymphadenopathy. Supple, full range of motion without nuchal rigidity, or vertebral point tenderness. No Meningismus. Chest/axilla: Normal chest wall appearance and motion. Nontender with no deformity. No lesions are appreciated. Cardiovascular: Regular rate and rhythm with a normal S1 and S2. No gallops, murmurs, or rubs. Normal PMI, no JVD. No pulse deficits. Respiratory: Lungs have equal breath sounds bilaterally, clear to auscultation and percussion. No rales, rhonchi or wheezes noted. No increased work of breathing, no retractions or nasal flaring. Abdomen/GI: Soft, non-tender, with normal bowel sounds. No distension or tympany. No guarding or rebound. No evidence of tenderness throughout. Back: No spinal tenderness. No costovertebral tenderness. Full range of motion. Male : Normal genitalia with no discharge or lesions. Skin: Warm, dry with normal turgor. Normal color with no rashes, no lesions, and no evidence of cellulitis. MS/ Extremity: Pulses equal, no cyanosis. Neurovascular intact. Full, normal range of motion. Neuro: Awake and alert, GCS 15, oriented to person, place, time, and situation. Cranial nerves II-XII grossly intact. Motor strength 5/5 in all extremities. Sensory grossly intact. Cerebellar exam normal. Normal gait. Psych: Awake, alert, with orientation to person, place and time. Behavior, mood, and affect are within normal limits. 00:03 ECG was reviewed by the Attending Physician. Vital Signs: 07/25 23:05 BP 124 / 92; Pulse 89; Resp 18 S; Temp 98.1(TE); Pulse Ox 94% on R/A; Weight 81.65 kg as6 (R); Height 5 ft. 11 in. (R); Pain 01/26; 07/26 00:00 BP 140 / 95; Pulse 83; Resp 14 S; Pulse Ox 94% on R/A; as6 01:00 BP 114 / 64; Pulse 78; Resp 16 S; Pulse Ox 95% on R/A; as6 01:59 BP 108 / 68; Pulse 77; Resp 18 S; Pulse Ox 96% on R/A; as6 07/25 23:05 Body Mass Index 25.10 (81.65 kg, 180.34 cm) as6 07/25 23:05 Pain Scale: Adult as6 MDM: 07/25 23:28 Patient medically screened. [facility] 07/26 00:51 Differential Diagnosis altered mental status. Differential Diagnosis: CVA, electrolyte geovanny abnormality, alcohol intoxication, hypoglycemia, intracranial bleed, meningitis, overdose, pneumonia, UTI, volume depletion. Data reviewed: vital signs, nurses notes, lab test result(s), EKG, radiologic studies. Consideration of Admission/Observation Escalation of care including admission/observation considered. Management of patient was discussed with the following:. Independent interpretation of the following test(s) in the Emergency Department EKG: See my EKG interpretation above. Test considered but Not performed: MRI: mri brain. Care significantly affected by the following chronic conditions: Hypertension, alcohol, anxiety, chronic back pain. 07/25 23:12 Order name: Acetaminophen; Complete Time: 00:46 [facility] 07/25 23:12 Order name: Basic Metabolic Panel; Complete Time: 00:46 [facility] 07/25 23:12 Order name: CBC with Diff; Complete Time: 00:21 geovanny 07/25 23:12 Order name: ETOH Level; Complete Time: 00:46 geovanny 07/25 23:12 Order name: Hepatic Function; Complete Time: 00:46 [facility] 07/25 23:12 Order name: PT-INR; Complete Time: 00:21 [facility] 07/25 23:12 Order name: Ptt, Activated; Complete Time: 00:21 geovanny 07/25 23:12 Order name: Salicylate; Complete Time: 00:21 [facility] 07/25 23:12 Order name: Urine Drug Screen [facility] 07/26 01:24 Order name: Urine Dipstick-Ancillary EDMS 07/25 23:12 Order name: EKG; Complete Time: 23:13 [facility] 07/25 23:12 Order name: EKG - Nurse/Tech; Complete Time: :46 [facility] 07/25 23:12 Order name: IV Saline Lock; Complete Time: :46 [facility] 07/25 23:12 Order name: Labs collected and sent; Complete Time: 23:46 [facility] 07/25 23:12 Order name: Suicide Screening ([place]); Complete Time: 23:18 [facility] 07/25 23:12 Order name: Urine Dipstick-Ancillary (obtain specimen); Complete Time: 01:26 [facility] 07/25 23:12 Order name: Misc. Order: hob at 40; Complete Time: :46 [facility] EC:03 Rate is 80 beats/min. Rhythm is regular. QRS Gray is Normal. MN interval is normal. QRS geovanny interval is normal. QT interval is normal. No Q waves. T waves are Normal. No ST changes noted. Clinical impression: NSR w/ Non-specific ST/T Changes and No evidence of ischemia. Interpreted by me. Reviewed by me. Administered Medications: 07/25 23:40 Drug: Thiamine IV 100 mg Route: IV; Rate: per protocol; Site: right antecubital; 07/26 01:57 Follow up: Response: No adverse reaction; IV Status: Completed infusion; IV Intake: [id number] 07/25 23:40 Drug: NS 0.9% IV 1000 ml Route: IV; Rate: 1 bolus; Site: right antecubital; as07/26 01:57 Follow up: Response: No adverse reaction; IV Status: Completed infusion; IV Intake: as6 1000ml 07/25 23:40 Drug: Ondansetron IVP 8 mg Route: IVP; Site: right antecubital; as07/26 01:57 Follow up: Response: No adverse reaction as6 07/25 23:40 Drug: Banana Bag - (NS 0.9% IV 1000 ml, foLIC Acid IVPB 1 mg, Thiamine IV 100 mg, as6 Multivitamin IV 1 amp) Route: IV; Rate: 500 ml/hr; Site: right antecubital; 07/26 01:58 Follow up: Response: No adverse reaction; IV Status: Completed infusion; IV Intake: as6 1000ml 01:00 Drug: Ativan IVP 1 mg Route: IVP; Site: right antecubital; as6 01:57 Follow up: Response: No adverse reaction as6 Disposition Summary: 07/26/22 01:00 Discharge Ordered Location: Home geovanny Problem: new geovanny Symptoms: have improved geovanny Condition: Stable geovanny Diagnosis - Alcohol abuse geovanny - Alcohol abuse with intoxication geovanny Followup: geovanny - With: Private Physician - When: 2 - 3 days - Reason: Recheck today's complaints, Continuance of care, Re-evaluation by your physician Discharge Instructions: - Discharge Summary Sheet geovanny - Alcohol Intoxication geovanny - Alcohol Intoxication, Upvw-td-Pccv [facility] Forms: - Medication Reconciliation Form geovanny - Thank You Letter geovanny - Antibiotic Education geovanny - Prescription Opioid Use [facility] Prescriptions: - chlordiazepoxide HCl 25 mg Oral capsule - take 2 capsule by ORAL route 4 times per day for 4 days as needed for anxiety; geovanny 60 capsule; Refills: 0, Product Selection Permitted - Pepcid 20 mg Oral Tablet - take 1 tablet by ORAL route every 12 hours for 21 days; 42 tablet; Refills: 0, [facility] Product Selection Permitted - Zofran 4 mg Oral Tablet - take 1 tablet by ORAL route every 12 hours As needed; 30 tablet; Refills: 0, [facility] Product Selection Permitted Signatures: Dispatcher [employer] Lencho Howard MD MD cha Slawson, Ashby, RN RN as6
--- NOTE | 2022-08-09 15:06 | ER ---
Nurse's Notes [facility] Name: Abiodun Lara Age: 42 yrs Sex: Male : 1980 Arrival Date: 07/25/2022 Time: 23:01 Bed 5 Private MD: Diagnosis: Alcohol abuse;Alcohol abuse with intoxication Presentation: 07/25 23:05 Chief complaint: EMS states: called out for alcohol intoxication by pt mother. pt as6 states he is fine. Coronavirus screen: At this time, the client does not indicate any symptoms associated with coronavirus-19. Ebola Screen: No symptoms or risks identified at this time. Initial Sepsis Screen: Does the patient meet any 2 criteria? No. Patient's initial sepsis screen is negative. Does the patient have a suspected source of infection? No. Patient's initial sepsis screen is negative. Risk Assessment: Do you want to hurt yourself or someone else? Patient reports no desire to harm self or others. Onset of symptoms was July 25, 2022. 23:05 Acuity: CHENTE 3 as6 23:05 Method Of Arrival: EMS: [facility] as6 Historical: - Allergies: 23:05 No Known Allergies; as6 - PMHx: 23:05 Alcoholism; Anxiety; chronic back pain; Hypertension; as6 - Immunization history:: Client reports having NOT received the Covid vaccine. - Social history:: Smoking status: Patient denies any tobacco usage or history of. - Family history:: not pertinent. Screenin:08 [facility] ED Fall Risk Assessment (Adult) Score/Fall Risk Level 0 - 2 = Low Risk. Abuse as6 screen: Denies threats or abuse. Denies injuries from another. Nutritional screening: No deficits noted. Tuberculosis screening: No symptoms or risk factors identified. Assessment: 23:07 General: Appears in no apparent distress. Behavior is calm, cooperative, flat, quiet, as6 Smells of alcohol. Pain: Complains of pain in generalized. Neuro: Level of Consciousness is drowsy . Respiratory: Respiratory effort is even, unlabored. 07/26 01:54 General: discharge pending transportation . as6 Vital Signs: 07/25 23:05 BP 124 / 92; Pulse 89; Resp 18 S; Temp 98.1(TE); Pulse Ox 94% on R/A; Weight 81.65 kg as6 (R); Height 5 ft. 11 in. (R); Pain 9/10; 0310 00:00 BP 140 / 95; Pulse 83; Resp 14 S; Pulse Ox 94% on R/A; as6 01:00 BP 114 / 64; Pulse 78; Resp 16 S; Pulse Ox 95% on R/A; as6 01:59 BP 108 / 68; Pulse 77; Resp 18 S; Pulse Ox 96% on R/A; as6 03 23:05 Body Mass Index 25.10 (81.65 kg, 180.34 cm) as6 07/25 23:05 Pain Scale: Adult as6 ED Course: 07/25 23:01 Patient arrived in ED. sb4 23:05 Maximino Engle, RN is Primary Nurse. as6 23:05 Arm band placed on. as6 23:07 Triage completed. as6 23:08 Bed in low position. Call light in reach. Side rails up X2. as6 23:10 Lencho Zee MD is Attending Physician. geovanny 23:46 Inserted saline lock: 20 gauge in right antecubital area, using aseptic technique. as6 Blood collected. 07/26 01:57 No provider procedures requiring assistance completed. as6 02:36 IV discontinued, intact, bleeding controlled, No redness/swelling at site. Pressure ha1 dressing applied. Administered Medications: 07/25 23:40 Drug: Thiamine IV 100 mg Route: IV; Rate: per protocol; Site: right antecubital; as6 07/26 01:57 Follow up: Response: No adverse reaction; IV Status: Completed infusion; IV Intake: [id number] 07/25 23:40 Drug: NS 0.9% IV 1000 ml Route: IV; Rate: 1 bolus; Site: right antecubital; as07/26 01:57 Follow up: Response: No adverse reaction; IV Status: Completed infusion; IV Intake: as6 1000ml 07/25 23:40 Drug: Ondansetron IVP 8 mg Route: IVP; Site: right antecubital; 07/26 01:57 Follow up: Response: No adverse reaction as6 07/25 23:40 Drug: Banana Bag - (NS 0.9% IV 1000 ml, foLIC Acid IVPB 1 mg, Thiamine IV 100 mg, as6 Multivitamin IV 1 amp) Route: IV; Rate: 500 ml/hr; Site: right antecubital; 07/26 01:58 Follow up: Response: No adverse reaction; IV Status: Completed infusion; IV Intake: as6 1000ml 01:00 Drug: Ativan IVP 1 mg Route: IVP; Site: right antecubital; as6 01:57 Follow up: Response: No adverse reaction as6 Medication: :57 VIS not applicable for this client. as6 Intake: :57 IV: 10ml; Total: 10ml. as6 01:57 IV: 1000ml; Total: 1010ml. as6 01:58 IV: 1000ml; Total: 2010ml. as6 Outcome: 01:00 Discharge ordered by . geovanny 01:58 Condition: stable as6 02:36 Discharged to home via wheelchair, with family. ha1 02:36 Discharge instructions given to patient, family, Instructed on discharge instructions, follow up and referral plans. medication usage. 02:37 Patient left the ED. ha1 Signatures: Lencho Zee MD MD cha Slawson, Ashby, RN RN as6 Gaviota Ellis RN RN ha1 Ariane Townsend, PA-C PA-C sb4
== END 2022-07-26 02:37 | disposition home or self-care (01) ==
LOC: ER 23:00
DX: F10.229 Alcohol dependence with intoxication, unspecified (principal)
CPT/HCPCS: 36415; 80048; 80076; 80307; 81003; 85025; 85610; 85730; 93005; 96365; 96366; 96368; 96375; 99284; G0480; J2405; J3411; J7030

== ENCOUNTER 2022-12-03 01:18 | Emergency (ER) | payer SELFPAY ==
--- OUTSIDE RECORDS SUMMARY | 2022-12-03 01:27 | XMS REPORT | Continuity of Care Document ---
:1980 Author Organization [facility] t Address [address] [place] [address] Care Team Providers Name Role Phone Hina Ortega Primary Care Physician FARIDEH STARKS Attending Clinician Unavailable Payers Payer Name Policy Type Policy Number Effective Date Expiration Date S ource Problems Condition Condition Condition Status Onset Resolution Last Treating Co mments Source Name Details Category Date Date Treatment Clinician Date Alcohol Alcohol Disease Active Univers abuse abuse 8-03 ity of 00:00: [place] 00 [facility] Generalize Generalize Disease Active U nivers d d 8 ity of abdominal abdominal 00:00: [facility] s pain pain 00 [facility] Aggressive Aggressive Disease Active 2021-0 U nivers behavior behavior 803 ity of 00:00: [place] 00 [facility] Anger Anger Disease Active Univers 8-03 ity of 00:00: [place] 00 [facility] Allergies, Adverse Reactions, Alerts Allergy Allergy Status Severity Reaction(s) Onset Inactive Treating Comm ents Source Name Type Date Date Clinician NO KNOWN Drug Active Univers ALLERGIE Class ity of S [facility] Social History Social Habit Start Date Stop Date Quantity Comments Source Gender identity [facility] alth Sexual orientation [facility] Exposure to SARS-CoV-2 2022-07-14 2022-07-24 Not sure [facility] (event) 00:00:00 20:53:00 History of Social 2022-07-24 2022-07-24 [facility] function 00:00:00 00:00:00 Sex Assigned At [birth year] [facility] 00:00:00 00:00:00 Smoking Status Start Date Stop Date Source Tobacco smoking consumption [facility] Medications Ordered Filled Start Stop Current Ordering Indication Dosage Frequency Signature Comments Components Source Medication Medication Date Date Medication? Clinician (SIG) Name Name ondansetron 2021- No 4mg 4 mg, Slow Univers (ZOFRAN 12-19 IV Push, ity of (PF)) 20:30: 19:59 ONCE, 1 [place] injection 4 00 :00 dose, On Medi jeremias mg Fri12/19/21 Branch at 1530, ALEJANDRA NaCl 0.9% No 1000mL at 999 Uni vers (NS) bolus 12-19 mL/hr, ity of infusion 20:30: 21:02 1,000 mL, Bakari as 1,000 mL 00 :00 IV Medical Infusion, Branch ONCE, 1 dose, On Fri12/19/21 at 1530, ALEJANDRA Vital Signs Vital Name Observation Time Observation Value Comments Source Systolic blood 2022-07-24 20:53:00 138 mm[Hg] [facility] pressure Diastolic blood 2022-07-24 20:53:00 100 [facility] pressure Heart rate 2022-07-24 20:53:00 97 /min [facility] Body temperature 2022-07-24 20:53:00 36.78 [facility] Respiratory rate 2022-07-24 20:53:00 18 /min [facility] Body height 2022-07-24 20:53:00 180.3 cm [facility] Body weight 2022-07-24 20:53:00 81.647 kg [facility] BMI 2022-07-24 20:53:00 25.10 kg/m2 [facility] Oxygen saturation in 2022-07-24 20:53:00 97 /min [facility] Arterial blood by Pulse oximetry Diastolic blood 2022-07-24 20:53:00 100 mm[Hg] [facility] pressure Heart rate 2022-07-24 20:53:00 97 /min [facility] Body temperature 2022-07-24 20:53:00 36.78 [facility] Respiratory rate 2022-07-24 20:53:00 18 /min [facility] Body height 2022-07-24 20:53:00 180.3 cm [facility] Body weight 2022-07-24 20:53:00 81.647 kg [facility] BMI 2022-07-24 20:53:00 25.10 kg/m2 [facility] Oxygen saturation in 2022-07-24 20:53:00 97 /min [facility] Arterial blood by Pulse oximetry Systolic blood 2022-07-24 20:53:00 138 mm[Hg] [facility] pressure Systolic blood 2022-07-24 20:53:00 138 mm[Hg] [facility] pressure Diastolic blood 2022-07-24 20:53:00 100 mm[Hg] [facility] pressure Heart rate 2022-07-24 20:53:00 97 /min [facility] Body temperature 2022-07-24 20:53:00 36.78 [facility] Respiratory rate 2022-07-24 20:53:00 18 /min [facility] Body height 2022-07-24 20:53:00 180.3 cm [facility] Body weight 2022-07-24 20:53:00 81.647 kg [facility] BMI 2022-07-24 20:53:00 25.10 kg/m2 [facility] Oxygen saturation in 2022-07-24 20:53:00 97 /min [facility] Arterial blood by Pulse oximetry Diastolic blood 2022-07-24 20:53:00 100 mm[Hg] [facility] pressure Heart rate 2022-07-24 20:53:00 97 /min [facility] Body temperature 2022-07-24 20:53:00 36.78 [facility] Respiratory rate 2022-07-24 20:53:00 18 /min [facility] Body height 2022-07-24 20:53:00 180.3 cm [facility] Body weight 2022-07-24 20:53:00 81.647 kg [facility] BMI 2022-07-24 20:53:00 25.10 kg/m2 [facility] Oxygen saturation in 2022-07-24 20:53:00 97 /min [facility] Arterial blood by Pulse oximetry Systolic blood 2022-07-24 20:53:00 138 mm[Hg] [facility] pressure Body temperature 2021-12-19 19:17:00 36.67 [facility] Systolic blood 2021-12-19 19:16:00 129 mm[Hg] Univer sity of pressure [facility] Diastolic blood 2021-12-19 19:16:00 95 mm[Hg] Unive rsity of [facility] Heart rate 2021-12-19 19:16:00 100 /min Universi ty [facility] Respiratory rate 2021-12-19 19:16:00 16 /min Univ ersity of [facility] Body height 2021-12-19 19:16:00 180.3 cm Universi ty [facility] Body weight 2021-12-19 19:16:00 77.111 kg Universi ty [facility] BMI 2021-12-19 19:16:00 23.71 kg/m2 Universi [facility] Oxygen saturation in 2021-12-19 19:16:00 99 /min [facility] Arterial blood by [facility] Pulse oximetry Branch Systolic blood 2022-07-24 20:53:00 138 mm[Hg] [facility] pressure Diastolic blood 2022-07-24 20:53:00 100 mm[Hg] [facility] pressure Heart rate 2022-07-24 20:53:00 97 /min [facility] Body temperature 2022-07-24 20:53:00 36.78 Corina [facility] Respiratory rate 2022-07-24 20:53:00 18 /min [facility] Body height 2022-07-24 20:53:00 180.3 cm [facility] Body weight 2022-07-24 20:53:00 81.647 kg [facility] BMI 2022-07-24 20:53:00 25.10 kg/m2 [facility] Oxygen saturation in 2022-07-24 20:53:00 97 /min [facility] Arterial blood by Pulse oximetry Procedures Procedure Date / Time Performed Performing Clinician Sour e 12 LEAD EKG 2022-07-24 21:10:34 Avery Spann h 12 LEAD EKG 2022-07-24 21:10:34 Avrey Spann h 12 LEAD EKG 2022-07-24 21:10:34 Avery Spann h LIPASE 2021-12-19 19:47:00 Farideh Starks o f [facility] COMP. METABOLIC PANEL 2021-12-19 19:47:00 Farideh Starks [facility] ([id number]) Medical Branch CBC WITH DIFF 2021-12-19 19:47:00 Farideh Starks o f [facility] Plan of Care Planned Activity Planned Date Details Comments Source Future Scheduled Test 2022-02-16 00:00:00 IMM Influenza [facility] Seasonal (>/= 19 yrs) [code = IMM Influenza Seasonal (>/= 19 yrs)] Future Scheduled Test 1980 00:00:00 COVID-19 Vaccine (#1) [facility] [code = COVID-19 Vaccine (#1)] Encounters Start End Encounter Admission Attending Care Care Encounter Source Date/Time Date/Time Type Type Clinicians Facility Department ID 2022-07-24 2022-07-24 Emergency [facility] [id number] [facility] 20:52:00 23:35:00 [facility] 2022-07-24 2022-07-24 Emergency [facility] [id number] [place] 20:52:00 23:35:00 GENERAL 350.1.13.43 [facility] .[id number] 2021-12-[address] [facility] ERT [id number] Univers 14:23:00 16:06:00 FARIDEH rubio [facility] 2021-12-19 2021-12-[address] [facility] [id number] Univers 14:23:00 16:06:00 Farideh OGDEN 350.1.13.10 i ty [facility] 4.2.7.2.686 [facility] [id number] [address] Results Test Description Test Time Test Comments Results Result Sour e Comments EKG 12 LEAD EKG FOR CHP Eron H arris 8 [facility] 21:10:34 Test Date: 5830-23-76Rbt Name: ROSS AKERS Department: 5520Patient ID: [id number] Room: Gender: M Surgical Services Asst: [id number]: 1980 Requested By: AVERY SPANN Order Number: [id number] Can MD: Adis Hart MeasurementsIntervals [place] Rate: 89 P: 55PR: 141 QRS: 61QRSD: 126 T: 48QT: 359 QTc: 406 Interpretive StatementsSINUS RHYTHMMODERATE INTRAVENTRICULAR CONDUCTION DELAY [110+ ms QRS DURATION]Electronically Signed On 07-25-2022 10:14:30 [employer] by Adis Brown EKG 12 LEAD EKG FOR P [address] 21:10:34 Test Date: 8978-68-91Rqy Name: ROSS AKERS Department: 5520Patient ID: [id number] Room: Gender: M Surgical Services Asst: [id number]: 1980 Requested By: AVERY SPANN Order Number: [id number] Reading MD: Adis Hart MeasurementsIntervals [place] Rate: 89 P: 55PR: 141 QRS: 61QRSD: 126 T: 48QT: 359 QTc: 406 Interpretive StatementsSINUS RHYTHMMODERATE INTRAVENTRICULAR CONDUCTION DELAY [110+ ms QRS DURATION]Electronically Signed On 07-25-2022 10:14:30 [employer] by Adis Brown EKG 12 LEAD EKG FOR [address] 21:10:34 Test Date: 5980-59-20Mux Name: ROSS AKERS Department: 5520Patient ID: [id number] Room: Gender: M [employer] Services Asst: [id number]: 1980 Requested By: AVERY SPANN Order Number: [id number] Reading MD: Adis Hart MeasurementsIntervals [place] Rate: 89 P: 55PR: 141 QRS: 61QRSD: 126 T: 48QT: 359 QTc: 406 Interpretive StatementsSINUS RHYTHMMODERATE INTRAVENTRICULAR CONDUCTION DELAY [110+ ms QRS DURATION]Electronically Signed On 07-25-2022 10:14:30 [employer] by Adis Brown COMP. METABOLIC PANEL ([id number]) 2021-12-19 20:12:45 Test Item Value Reference Range Interpretation Comme nts NA (test code = 0699093265) 142 mmol/L 135-145 K (test code = 4810712941) 4.2 mmol/L 3.5-5 CL (test code = 0035085675) 105 mmol/L 98-108 CO2 TOTAL (test code = 8681946987) 26 mmol/L 23-31 AGAP (test code = 0758744102) 2-16 BUN (test code = 6766148475) 6 mg/dL 7-23 L GLUCOSE (test code = 2511544285) 90 mg/dL 70-110 CREATININE (test code = 0.57 mg/dL 0.6-1.25 L 4343833551) TOTAL BILI (test code = 0.4 mg/dL 0.1-1.3 7897976857) CALCIUM (test code = 8958998428) 9.3 mg/dL 8.6-10.6 T PROTEIN (test code = 6680216159) 7.5 g/dL 6.3-8.2 ALBUMIN (test code = 2665994760) 4.6 g/dL 3.5-5 ALK PHOS (test code = 8514078798) 68 U/L 34-122 ALTv (test code = 1742-6) 103 U/L 5-50 H AST(SGOT) (test code = 4206490872) 129 U/L 13-40 H eGFR (test code = 3538130648) mL/min/1.73m2 KRISHAN (test code = KRISHAN) Association [...] tests). Lab Interpretation (test code = Abnormal 56567-4) [facility] 20[facility]12:24 Test Item Value Reference Range Interpretation Comments LIPASE (test code = 7812723308) 70 U/L 0-220 Lab Interpretation (test code = Normal 82916-5) [facility] WITH WYDS1516-40-13 20:06:03 Test Item Value Reference Range Interpretation [...] RDW-SD (test code = 42.6 fL 38.5-51.6 52142-5) RDW-CV (test code = 12.0 % 12.1-15.4 L 788-0) PLT (test code = See_Comment L [Automated 777-3) message] The sy stem which generated this result transmitted reference range : 150 - 328 10*3/ ?L. The reference r los was not used to interpret this result as normal/abnormal . MPV (test code = 10.5 fL 9.8-13 24554-2) NRBC/100 WBC (test See_Comment [Automat ed code = 9150649774) message] The system which generated this result transmitted reference range : 0.0 - 10.0 /100 WBCs. The refer ence range was not u sed to interpret th is result as normal/abnormal . NRBC x10^3 (test code See_Comment [Auto mated = 9459437560) message] The s ystem which generated this result transmitted reference range : 10*3/?L. The reference range was not used to interpret this result as normal/abnormal . GRAN MAT (NEUT) % 42.7 % (test code = 770-8) IMM GRAN % (test code 0.60 % = 3211938003) LYMPH % (test code = 41.6 % 736-9) MONO % (test code = 10.6 % 5905-5) EOS % (test code = 3.5 % 713-8) BASO % (test code = 1.0 % 706-2) GRAN MAT x10^3(ANC) 2.09 10*3/uL 1.99-6.95 (test code = 9155641507) IMM GRAN x10^3 (test 0.03 10*3/uL 0-0.06 code = 7723059253) LYMPH x10^3 (test code 2.04 10*3/uL 1.09-3.23 = 731-0) MONO x10^3 (test code 0.52 10*3/uL 0.36-1.02 = 742-7) EOS x10^3 (test code = 0.17 10*3/uL 0.06-0.53 711-2) BASO x10^3 (test code 0.05 10*3/uL 0.01-0.09 = 704-7) Lab Interpretation Abnormal (test code = 54270-0) [facility] Notes Date/Time Note Provider Source 2022-07-24 Formatting of this note might be differe nt from the original. [facility] 23:33:34-00:00 Pt unable to be located in a ssigned room, pt called overhead x3 and nearby premises searched. Pt unable to be located at this time. Pt LBBS after triage System Electronically signed by Gonzales Zepeda at 2022 11:34 PM [employer] 2022-07-24 [facility] 22:19:05-00:00 Pt now talking on phone System Electronically signed by Gonzales Zepeda at 2022 10:19 PM [employer] 2022-07-24 [facility] 21:59:47-00:00 Pt located in exam room 5 la yesica down, unsure who took pt here. Pt is asleep but aroused by touch. Patient appears intoxicated and reports drinking alcohol today. Pt assisted back to wheel chair and placed back in room F7 in view of nurse's station System Electronically signed by Gonzales Zepeda at 2022 10:00 PM [employer] 2022-07-24 Formatting of this note might be differe nt from the original. Willie Medina RN [facility] 20:58:07-00:00 Patient presents to in ho pes of getting help with ETOH abuse problem. Denies pain. Patient verbally verified name and on armband is correct. Patient advised to immediately report change in status System or symptoms to RN. Patient also instructed to inform staff if they are to leave area at any time. Patient verbalized understanding of instructions. [employer] 2022-07-24 [facility] 20:54:43-00:00 Nayla Aguayo (mother): [phone] System Electronically signed by Sandy Mclain at 12/2022 8:55 PM [employer]"
[2022-12-03] MEDS ORDERED: NA CHLORIDE 0.9% 500 ML ONE (01:41)
[2022-12-03] MEDS ORDERED: KETOROLAC 30 MG/ML INJ ONE (02:06)
[2022-12-03 02:17] LABS: Absolute Lymphocytes (CBC) 1.6 K/uL (0.7-4.9); Hematocrit 41.7 % (39.6-49.0); Lymphocytes % 35.6 % (15.3-44.8); MPV 9.4 fL (7.6-11.3); RBC Red Blood Cell Count 4.17 M/uL (4.33-5.43)
[2022-12-03 02:30] LABS: Albumin 4.1 g/dL (3.4-5.0); Bilirubin Direct 0.2 mg/dL (0-0.2); Bilirubin Indirect, Calculated 0.3 mg/dL (0.2-0.8); Bilirubin Total 0.5 mg/dL (0.2-1.0); Potassium 3.4 mEq/L (3.5-5.1); Protein, Total 8.2 g/dL (6.4-8.2); Troponin High Sensitivity 4.6 pg/mL (<58.9)
--- NOTE | 2022-12-03 02:33 | ER ---
[facility] Name: Abiodun Lara Age: 42 yrs Sex: Male : 1980 Arrival Date: 12/03/2022 Time: :18 Bed 4 Private MD: Diagnosis: Muscle cramps, chest pain Presentation: 12/03 01:24 Chief complaint: EMS states: Pt called EMS due to GABRIEL leg from his knees to the bottoms jb4 of his feet. Reports chest pain that is worse upon palpation. Coronavirus screen: At this time, the client does not indicate any symptoms associated with coronavirus-19. Ebola Screen: No symptoms or risks identified at this time. Initial Sepsis Screen: Does the patient meet any 2 criteria? No. Patient's initial sepsis screen is negative. Does the patient have a suspected source of infection? No. Patient's initial sepsis screen is negative. Risk Assessment: Do you want to hurt yourself or someone else? Patient reports no desire to harm self or others. Onset of symptoms was December 03, 2022. Transition of care: patient was not received from another setting of care. 01:24 Method Of Arrival: EMS: [facility] jb4 01:24 Acuity: CHENTE 3 jb4 Triage Assessment: 02:40 General: Appears in no apparent distress. Behavior is calm, cooperative. Pain: as6 Complains of pain in chest. Cardiovascular: Reports chest pain. Respiratory: Respiratory effort is even, unlabored. Historical: - Allergies: 01:28 No Known Allergies; jb4 - PMHx: 01:28 Alcoholism; Anxiety; chronic back pain; Hypertension; jb4 - Immunization history:: Adult Immunizations up to date. - Social history:: Smoking status: Patient denies any tobacco usage or history of. Patient uses alcohol. Screenin:39 [facility] ED Fall Risk Assessment (Adult) Score/Fall Risk Level 0 - 2 = Low Risk. Abuse as6 screen: Denies threats or abuse. Denies injuries from another. Nutritional screening: No deficits noted. Tuberculosis screening: No symptoms or risk factors identified. Assessment: 01:30 General: Appears in no apparent distress. uncomfortable, Behavior is calm, cooperative, jb4 appropriate for age. Pain: Complains of pain in chest, right foot, left foot, right leg and left leg Pain currently is 10 out of 10 on a pain scale. Neuro: Level of Consciousness is awake, alert, obeys commands, Oriented to person, place, time, situation. Cardiovascular: Patient's skin is warm and dry. Respiratory: Airway is patent Respiratory effort is even, unlabored, Respiratory pattern is regular, symmetrical. GI: No signs and/or symptoms were reported involving the gastrointestinal system. : No signs and/or symptoms were reported regarding the genitourinary system. EENT: No signs and/or symptoms were reported regarding the EENT system. Derm: Skin is intact, Skin is pink, warm \T\ dry. Musculoskeletal: Circulation, motion, and sensation intact. Range of motion: intact in all extremities. 02:15 Reassessment: Patient appears in no apparent distress at this time. Patient and/or jb4 family updated on plan of care and expected duration. Pain level reassessed. Patient is alert, oriented x 3, equal unlabored respirations, skin warm/dry/pink. Vital Signs: 01:24 BP 135 / 88; Pulse 83; Resp 16; Temp 98.4(TE); Pulse Ox 98% on R/A; Weight 85.28 kg jb4 (M); Pain 10/10; 02:39 BP 118 / 93; Pulse 82; Resp 18 S; Pulse Ox 100% on R/A; as6 01:24 Pain Scale: Adult jb4 ED Course: 01:19 Patient arrived in ED. bc6 01:23 Misael Boland MD is Attending Physician. sp3 01:24 Roge Hodges, RN is Primary Nurse. jb4 01:28 Triage completed. jb4 01:28 Arm band placed on. jb4 01:40 CK Sent. bc6 01:40 Basic Metabolic Panel Sent. bc6 01:40 CBC with Diff Sent. bc6 01:40 LFT's Sent. bc6 01:40 NT PRO-BNP Sent. bc6 01:40 Troponin HS Sent. bc6 01:40 Inserted saline lock: 20 gauge in right antecubital area, using aseptic technique. bc6 Blood collected. 01:42 XRAY Chest (1 view) In Process Unspecified. EDMS 02:40 Bed in low position. Call light in reach. Side rails up X2. Provided Education on: as6 discharge teaching. 02:40 No provider procedures requiring assistance completed. IV discontinued, intact, as6 bleeding controlled, No redness/swelling at site. Pressure dressing applied. Administered Medications: 01:36 Drug: NS 0.9% IV 500 ml Route: IV; Rate: bolus; Site: right antecubital; jb4 02:39 Follow up: Response: No adverse reaction; IV Status: Completed infusion; IV Intake: as6 500ml 01:57 Drug: Ketorolac IVP 30 mg Route: IVP; Site: right antecubital; as6 02:38 Follow up: Response: No adverse reaction as6 Medication: 02:39 VIS not applicable for this client. as6 Intake: 02:39 IV: 500ml; Total: 500ml. as6 Outcome: 02:33 Discharge ordered by . sp3 02:40 Discharged to home ambulatory, with significant other. as6 02:40 Condition: stable 02:40 Discharge instructions given to patient, Instructed on discharge instructions, follow up and referral plans. medication usage, Demonstrated understanding of instructions, follow-up care, medications, Prescriptions given X 1. 02:40 Patient left the ED. as6 Signatures: Dispatcher [employer] EDMS Roge Hodges, RN RN jb4 Misael Boland MD MD sp3 Maximino Engle RN RN as6 Joslyn Tan [facility]
--- NOTE | 2022-12-03 02:33 | EDPHYS ---
Physician Documentation [facility] Name: Abiodun Lara Age: 42 yrs Sex: Male : 1980 Arrival Date: 12/03/2022 Time: :18 Bed 4 Private MD: ED Physician Misael Boland HPI: 12/03 01:32 This 42 yrs old Male presents to ER via EMS with complaints of chest pain, leg sp3 cramps. 01:54 42-year-old male with a history of chronic pain, hypertension, alcoholism, anxiety sp3 presents to the ED with chief complaint body aches, cramps in his muscles and chest and entire body secondary to being outside and working. Patient denies fever, URI symptoms, headache, known sick contacts, travel, shortness of breath, abdominal pain, nausea, vomiting, diarrhea, or any other signs or symptoms at this time.. Historical: - Allergies: 01:28 No Known Allergies; jb4 - PMHx: 01:28 Alcoholism; Anxiety; chronic back pain; Hypertension; jb4 - Immunization history:: Adult Immunizations up to date. - Social history:: Smoking status: Patient denies any tobacco usage or history of. Patient uses alcohol. ROS: 01:54 Constitutional: Negative for fever, chills, and weight loss, Eyes: Negative for injury, sp3 pain, redness, and discharge, ENT: Negative for injury, pain, and discharge, Neck: Negative for injury, pain, and swelling, Cardiovascular: Negative for chest pain, palpitations, and edema, Respiratory: Negative for shortness of breath, cough, wheezing, and pleuritic chest pain, Abdomen/GI: Negative for abdominal pain, nausea, vomiting, diarrhea, and constipation, Back: Negative for injury and pain, MS/Extremity: Negative for injury and deformity, Skin: Negative for injury, rash, and discoloration, Neuro: Negative for headache, weakness, numbness, tingling, and seizure, Psych: Negative for depression, anxiety, suicide ideation, homicidal ideation, and hallucinations, Allergy/Immunology: Negative for hives, rash, and allergies, Endocrine: Negative for neck swelling, polydipsia, polyuria, polyphagia, and marked weight changes. 01:54 All other systems are negative. Exam: 01:32 ECG was reviewed by the Attending Physician. EKG demonstrates normal sinus rhythm at 81 sp3 bpm with normal intervals, normal QRS, normal axis, normal ST/T-segment's without evidence of acute ischemia. 01:55 Constitutional: This is a well developed, well nourished patient who is awake, alert, sp3 and in no acute distress. Head/Face: Normocephalic, atraumatic. Eyes: Pupils equal round and reactive to light, extra-ocular motions intact. Lids and lashes normal. Conjunctiva and sclera are non-icteric and not injected. Cornea within normal limits. Periorbital areas with no swelling, redness, or edema. ENT: Nares patent. No nasal discharge, no septal abnormalities noted. External auditory canals are clear. Oropharynx with no redness, swelling, or masses, exudates, or evidence of obstruction, uvula midline. Mucous membranes moist. Neck: Trachea midline, no thyromegaly or masses palpated, and no cervical lymphadenopathy. Supple, full range of motion without nuchal rigidity, or vertebral point tenderness. No Meningismus. Chest/axilla: Normal chest wall appearance and motion. Nontender with no deformity. No lesions are appreciated. Cardiovascular: Regular rate and rhythm with a normal S1 and S2. No gallops, murmurs, or rubs. Normal PMI, no JVD. No pulse deficits. Respiratory: Lungs have equal breath sounds bilaterally, clear to auscultation and percussion. No rales, rhonchi or wheezes noted. No increased work of breathing, no retractions or nasal flaring. Abdomen/GI: Soft, non-tender, with normal bowel sounds. No distension or tympany. No guarding or rebound. No evidence of tenderness throughout. Back: No spinal tenderness. No costovertebral tenderness. Full range of motion. Skin: Warm, dry with normal turgor. Normal color with no rashes, no lesions, and no evidence of cellulitis. Neuro: Awake and alert, GCS 15, oriented to person, place, time, and situation. Cranial nerves II-XII grossly intact. Motor strength 5/5 in all extremities. Sensory grossly intact. Cerebellar exam normal. Normal gait. Psych: Awake, alert, with orientation to person, place and time. Behavior, mood, and affect are within normal limits. 01:55 Musculoskeletal/extremity: Patient's muscles tender to palpation diffusely.. Vital Signs: 01:24 BP 135 / 88; Pulse 83; Resp 16; Temp 98.4(TE); Pulse Ox 98% on R/A; Weight 85.28 kg jb4 (M); Pain 10/10; 02:39 BP 118 / 93; Pulse 82; Resp 18 S; Pulse Ox 100% on R/A; as6 01:24 Pain Scale: Adult jb4 MDM: 01:27 Patient medically screened. 3 01:56 Data reviewed: vital signs, nurses notes, old medical records, lab test result(s), EKG, sp3 radiologic studies. ED course: 42-year-old male with PMH above now presents with body aches, muscle aches and chest pain. I do not believe patient is having acute coronary syndrome, PE, TAD, pneumonia, pneumothorax, AAA, any other critical pathology processes. To consider dehydration and muscle aches secondary to that. CK is pending. Troponin chest x-ray and other labs are also pending. EKG demonstrates no significant abnormality. If work-up is negative, we will safely discharge patient home.. 02:32 ED course: All laboratory values are negative including CPK and troponin. LFTs mildly sp3 elevated his chronic alcoholism is present. We will safely discharge patient home at this time.. 12/03 01:28 Order name: Basic Metabolic Panel [facility] 12/03 01:28 Order name: CBC with Diff; Complete Time: 02:27 3 12/03 01:28 Order name: LFT's [facility] 12/03 01:28 Order name: NT PRO-BNP [facility] 12/03 01:28 Order name: Troponin HS [facility] 12/03 01:28 Order name: CK 3 12/03 01:28 Order name: XRAY Chest (1 view) 3 12/03 01:28 Order name: EKG; Complete Time: : [facility] 12/03 01:28 Order name: Cardiac monitoring; Complete Time: : [facility] 12/03 01:28 Order name: EKG - Nurse/Tech; Complete Time: : [facility] 12/03 01:28 Order name: IV Saline Lock; Complete Time: 01:39 [facility] 12/03 01:28 Order name: Labs collected and sent; Complete Time: : [facility] 12/03 01:28 Order name: O2 Per Protocol; Complete Time: 01:31 sp3 12/03 01:28 Order name: O2 Sat Monitoring; Complete Time: 01:31 sp3 Administered Medications: 01:36 Drug: NS 0.9% IV 500 ml Route: IV; Rate: bolus; Site: right antecubital; jb4 02:39 Follow up: Response: No adverse reaction; IV Status: Completed infusion; IV Intake: as6 500ml 01:57 Drug: Ketorolac IVP 30 mg Route: IVP; Site: right antecubital; as6 02:38 Follow up: Response: No adverse reaction as6 Disposition Summary: 12/03/22 02:33 Discharge Ordered Location: Home sp3 Condition: Stable sp3 Diagnosis - Muscle cramps, chest pain sp3 Followup: sp3 - With: Private Physician - When: Upon discharge from the Emergency Department - Reason: Recheck today's complaints Discharge Instructions: - Discharge Summary Sheet sp3 - Muscle Cramps and Spasms sp3 Forms: - Medication Reconciliation Form sp3 - Thank You Letter sp3 - Antibiotic Education sp3 - Prescription Opioid Use sp3 - Patient Portal Instructions sp3 Prescriptions: - Diclofenac Sodium 75 mg Oral Tablet Sustained Release - take 1 tablet by ORAL route 2 times per day; 30 tablet; Refills: 0, Product sp3 Selection Permitted Signatures: Dispatcher [employer] Roge Melchor, RN RN jb4 Misael Boland MD MD sp3 Maximino Engle RN RN as6
[2022-12-03 05:10] VITALS: BP 135/88; TEMP 98.4; O2SAT 98
--- NOTE | 2022-12-03 16:26 | RAD REPORT ---
EXAM DESCRIPTION: RAD - Chest Single View - 12/03/2022 1:40 am CLINICAL HISTORY: 42 years Male, CHEST PAIN COMPARISON: None. FINDINGS: Single portable AP view of the chest. Trachea is midline. Normal size of the cardiac silho uette. No pulmonary vascular congestion. No consolidation. No pleural effusion or pneumothorax. No ac qawalangin osseous abnormality. IMPRESSION: No acute radiographic abnormality. Electronically signed by: Farrah Aguirre MD 12/03/2022 1:56 AM CDT Due to temporary technical issues with the PACS/Fluency reporting system, reports are being signed by the in house radiologists without review as a courtesy to insure prompt reporting. The interpreting radiologist is fully responsible for the content of the report.
--- NOTE | 2022-12-03 20:38 | EKG ---
Test Date: 2022-12-03 Test Time: 01:28:40 Marketing Agent: GAVINO MEASUREMENT RESULTS: Intervals: Rate: 81 NE: 140 QRSD: 112 QT: 384 QTc: 446 [facility]: P: 47 NE: 140 QRS: 45 T: 46 INTERPRETIVE STATEMENTS: Normal sinus rhythm Normal ECG Compared to ECG 07/25/2022 23:35:56 Intraventricular conduction delay no longer present Electronically Signed On 12-03-22 20:37:16 CDT by Molina Mitchell
== END 2022-12-03 02:40 | disposition home or self-care (01) ==
LOC: ER 01:18
DX: R25.2 Cramp and spasm (principal); R07.9 Chest pain, unspecified; F10.20 Alcohol dependence, uncomplicated
CPT/HCPCS: 36415; 71045; 80048; 80076; 82550; 83880; 84484; 85025; 93005; 96361; 96374; 99284; J7040

== ENCOUNTER 2023-01-05 17:00 | Emergency (ER) | payer OTHER, SELFPAY ==
--- OUTSIDE RECORDS SUMMARY | 2023-01-05 17:09 | XMS REPORT | Continuity of Care Document ---
:1980 Author Organization [facility] t Address [address] [place] [id number] Care Team Providers Name Role Phone Hina Ortega Primary Care Physician FARIDEH STARKS Attending Clinician Unavailable Payers Payer Name Policy Type Policy Number Effective Date Expiration Date S ource Problems Condition Condition Condition Status Onset Resolution Last Treating Co mments Source Name Details Category Date Date Treatment Clinician Date Alcohol Alcohol Disease Active Univers abuse abuse 12-19 ity of 00:00: [address] Generalize Generalize Disease Active U nivers d d 12-19 it[place] of abdominal [place] 00 [facility] Aggressive Aggressive Disease Active 2021-0 U nivers behavior behavior 8 ity of 00:00: [address] Anger Anger Disease Active Univers 8-03 ity of 00:00: [address] Allergies, Adverse Reactions, Alerts Allergy Allergy Status Severity Reaction(s) Onset Inactive Treating Comm ents Source Name Type Date Date Clinician NO KNOWN Drug Active Univers ALLERGIE Class ity of S [facility] Social History Social Habit Start Date Stop Date Quantity Comments Source Gender identity [facility] alth Sexual orientation [facility] Exposure to SARS-CoV-2 2022-07-14 2022-07-24 Not sure [facility] (event) 00:00:00 20:53:00 History of Social 2022-07-24 2022-07-24 [facility] function 00:00:00 00:00:00 Sex Assigned At [birth year] [facility] 00:00:00 00:00:00 Smoking Status Start Date Stop Date Source Tobacco smoking consumption Univ [facility] Medications Ordered Filled Start Stop Current Ordering Indication Dosage Frequency Signature Comments Components Source Medication Medication Date Date Medication? Clinician (SIG) Name Name ondansetron No 4mg 4 mg, Slow Univers (ZOFRAN [...] Source Systolic blood 2022-07-24 20:53:00 138 mm[Hg] [facility] pressure Diastolic blood 2022-07-24 20:53:00 100 mm[Hg] David dey [facility] pressure Heart rate 2022-07-24 20:53:00 97 /min [facility] Body temperature 2022-07-24 20:53:00 36.78 Corina Kodi is [facility] Respiratory rate 2022-07-24 20:53:00 18 /min Kodi is [facility] Body height 2022-07-24 20:53:00 180.3 cm [facility] Body weight 2022-07-24 20:53:00 81.647 kg [facility] BMI 2022-07-24 20:53:00 25.10 kg/m2 [facility] Oxygen saturation in 2022-07-24 20:53:00 97 /min [facility] Arterial blood by Pulse oximetry Diastolic blood 2022-07-24 20:53:00 100 mm[Hg] David dey [facility] pressure Heart rate 2022-07-24 20:53:00 97 /min [facility] Body temperature 2022-07-24 20:53:00 36.78 Corina [facility] Respiratory rate 2022-07-24 20:53:00 18 /min [facility] Body height 2022-07-24 20:53:00 180.3 cm [facility] Body weight 2022-07-24 20:53:00 81.647 kg [facility] BMI 2022-07-24 20:53:00 25.10 kg/m2 [facility] Oxygen saturation in 2022-07-24 20:53:00 97 /min [facility] Arterial blood by Pulse oximetry Systolic [...] oximetry Diastolic blood 2022-07-24 20:53:00 100 mm[Hg] Harri [...] Oxygen saturation in 2022-07-24 20:53:00 97 /min [facility] Arterial blood by Pulse oximetry Systolic blood 2022-07-24 20:53:00 138 mm[Hg] [facility] pressure Body temperature 2021-12-19 19:17:00 36.67 Corina [facility] Systolic blood 2021-12-19 19:16:00 129 mm[Hg] Univer sity of pressure [facility] Diastolic blood 2021-12-19 19:16:00 95 mm[Hg] Unive rsity of pressure [facility] Heart rate 2021-12-19 19:16:00 100 /min Universi ty [facility] Respiratory rate 2021-12-19 19:16:00 16 /min Univ ersity of [facility] Body height 2021-12-19 19:16:00 180.3 cm Universi ty [facility] Body weight 2021-12-19 19:16:00 77.111 kg Universi ty [facility] BMI 2021-12-19 19:16:00 23.71 kg/m2 Universi [facility] Oxygen saturation in 2021-12-19 19:16:00 99 /min [facility] Arterial blood by [facility] Pulse oximetry Branch Systolic blood 2022-07-24 20:53:00 138 mm[Hg] [facility] pressure Diastolic blood 2022-07-24 20:53:00 100 mm[Hg] Kodii s [facility] pressure Heart rate 2022-07-24 20:53:00 97 /min [facility] Body temperature 2022-07-24 20:53:00 36.78 Corina [facility] Respiratory rate 2022-07-24 20:53:00 18 /min Kodi is [facility] Body height 2022-07-24 20:53:00 180.3 cm [facility] Body weight 2022-07-24 20:53:00 81.647 kg [facility] BMI 2022-07-24 20:53:00 25.10 kg/m2 [facility] Oxygen saturation in 2022-07-24 20:53:00 97 /min [facility] Arterial blood by Pulse oximetry Procedures Procedure Date / Time Performed Performing Clinician [facility] e 12 LEAD EKG 2022-07-24 21:10:34 Avery Spann h 12 LEAD EKG 2022-07-24 21:10:34 Avery Spann h 12 LEAD EKG 2022-07-24 21:10:34 Avery Spann h LIPASE 2021-12-19 19:47:00 Farideh Starks o f [facility] COMP. METABOLIC PANEL 2021-12-19 19:47:00 [facility] ([id number]) [facility] CBC WITH DIFF 2021-12-19 19:47:00 Farideh Starks o f [facility] Plan of Care Planned Activity Planned Date Details Comments Source Future Scheduled Test 2023-02-16 00:00:00 IMM Influenza [facility] Seasonal (>/= 19 yrs) [code = IMM Influenza Seasonal (>/= 19 yrs)] Future Scheduled Test 2022-02-16 00:00:00 IMM Influenza [facility] Seasonal (>/= 19 yrs) [code = IMM Influenza Seasonal (>/= 19 yrs)] Future Scheduled Test 1980 00:00:00 COVID-19 Vaccine (#1) [facility] [code = COVID-19 Vaccine (#1)] Future Scheduled Test 1980 00:00:00 COVID-19 Vaccine (#1) [facility] [code = COVID-19 Vaccine (#1)] Encounters Start End Encounter Admission Attending Care Care Encounter Source Date/Time Date/Time Type Type Clinicians Facility Department ID 2022-07-24 2022-07-24 Emergency ERON ITZEL [id number] [facility] 20:52:00 23:35:00 GENERAL [id number] He [facility] .[id number] 4043-03-08 2022-07-24 Emergency ERON ITZEL [id number] [facility] 20:52:00 23:35:00 GENERAL [id number] He [facility] .2.7.2.6869 [id number] 1999-08-03 2021-12-19 Emergency X RAUDEL NYVICKY ERT [id number] Univers 14:23:00 16:06:00 FARIDEH rubio [facility] 2021-12-19 2021-12-19 Emergency Mayelinutcarlita [facility] [id number] Univers 14:23:00 16:06:00 Farideh STEVENSON 350.1.13.10 i ty of [place] 4.2.7.2.686 [facility] [id number] [place] [address] Branch Results Test Description Test Time Test Comments Results Result [facility] e Comments EKG 12 LEAD EKG FOR CHP Eron H arr[address] 21:10:34 Test Date: 5907-10-99Ktt Name: ROSS AKERS Department: 5520Patient ID: [id number] Room: Gender: M Supervisor Public Health Nursing: [id number]: 1980 Requested By: AVERY SPANN Order Number: [id number] Reading MD: Adis Hart MeasurementsIntervals [place] Rate: 89 P: 55PR: 141 QRS: 61QRSD: 126 T: 48QT: 359 QTc: 406 Interpretive StatementsSINUS RHYTHMMODERATE INTRAVENTRICULAR CONDUCTION DELAY [110+ ms QRS DURATION]Electronically Signed On 07-25-2022 10:14:30 INSURANCE SOLICITOR by Adis Brown EKG 12 LEAD EKG FOR P Eron H [address] 21:10:34 Test Date: 9241-62-48Nad Name: ROSS AKERS Department: 5520Patient ID: [id number] Room: Gender: M Supervisor Public Health Nursing: [id number]: 1980 Requested By: AVERY SPANN Order Number: [id number] Reading MD: Adis Hart MeasurementsIntervals [place] Rate: 89 P: 55PR: 141 QRS: 61QRSD: 126 T: 48QT: 359 QTc: 406 Interpretive StatementsSINUS RHYTHMMODERATE INTRAVENTRICULAR CONDUCTION DELAY [110+ ms QRS DURATION]Electronically Signed On 07-25-2022 10:14:30 INSURANCE SOLICITOR by Adis Brown EKG 12 LEAD EKG FOR CHP Eron H arr[address] 21:10:34 Test Date: 5894-73-33Kux Name: ROSS AKERS Department: 5520Patient ID: [id number] Room: Gender: M Supervisor Public Health Nursing: [id number]: 1980 Requested By: AVERY SPANN Order Number: [id number] Reading MD: Adis Hart MeasurementsIntervals [place] Rate: 89 P: 55PR: 141 QRS: 61QRSD: 126 T: 48QT: 359 QTc: 406 Interpretive StatementsSINUS RHYTHMMODERATE INTRAVENTRICULAR CONDUCTION DELAY [110+ ms QRS DURATION]Electronically Signed On 07-25-2022 10:14:30 INSURANCE SOLICITOR by Adis Brown EKG 12 LEAD EKG FOR P [address] 21:10:34 Test Date: 4415-08-46Dkp Name: ROSS AKERS Department: 5520Patient ID: [id number] Room: Gender: M Supervisor Public Health Nursing: [id number]: 1980 Requested By: AVERY SPANN Order Number: [id number] Reading MD: Adis Hart MeasurementsIntervals [place] Rate: 89 P: 55PR: 141 QRS: 61QRSD: 126 T: 48QT: 359 QTc: 406 Interpretive StatementsSINUS RHYTHMMODERATE INTRAVENTRICULAR CONDUCTION DELAY [110+ ms QRS DURATION]Electronically Signed On 07-25-2022 10:14:30 INSURANCE SOLICITOR by Adis Brown EKG 12 LEAD EKG FOR [address] 21:10:34 Test Date: 0540-26-06Uaq Name: ROSS MOTTOZA Department: 5520Patient ID: [id number] Room: Gender: M Supervisor Public Health Nursing: [id number]: 1980 Requested By: AVERY SPANN Order Number: [id number] Reading MD: Adis Hart MeasurementsIntervals [place] Rate: 89 P: 55PR: 141 QRS: 61QRSD: 126 T: 48QT: 359 QTc: 406 Interpretive StatementsSINUS RHYTHMMODERATE INTRAVENTRICULAR CONDUCTION DELAY [110+ ms QRS DURATION]Electronically Signed On 07-25-2022 10:14:30 INSURANCE SOLICITOR by Adis Brown COMP. METABOLIC PANEL ([id number]) 2021-12-19 20:12:45 Test Item Value Reference Range Interpretation Comme nts NA (test code = 0299463998) 142 mmol/L 135-145 K (test code = 4546756540) 4.2 mmol/L 3.5-5 CL (test code = 8812048395) 105 mmol/L 98-108 CO2 TOTAL (test code = 7628560664) 26 mmol/L 23-31 AGAP (test code = 9218939466) 2-16 BUN (test code = 6739658408) 6 mg/dL 7-23 L GLUCOSE (test code = 6993450856) 90 mg/dL 70-110 CREATININE (test code = 0.57 mg/dL 0.6-1.25 L 0008124873) TOTAL BILI (test code = 0.4 mg/dL 0.1-1.1 6995342617) CALCIUM (test code = 4239474715) 9.3 mg/dL 8.6-10.6 T PROTEIN (test code = 1483672023) 7.5 g/dL 6.3-8.2 ALBUMIN (test code = 4344676595) 4.6 g/dL 3.5-5 ALK PHOS (test code = 6005067383) 68 U/L 34-122 ALTv (test code = 1742-6) 103 U/L 5-50 H AST(SGOT) (test code = 3632637433) 129 U/L 13-40 H eGFR (test code = 0710195062) mL/min/1.73m2 KRISHAN (test code = KRISHAN) Association [...] tests). Lab Interpretation (test code = Abnormal 43489-3) [facility]12[facility]24 Test Item Value Reference Range Interpretation Comments LIPASE (test code = 1118937757) 70 U/L 0-220 Lab Interpretation (test code = Normal 93892-7) [facility] [id number] 20:06:03 Test Item Value Reference Range Interpretation [...] RDW-SD (test code = 42.6 fL 38.5-51.6 42502-5) RDW-CV (test code = 12.0 % 12.1-15.4 L 788-0) PLT (test code = See_Comment L [Automated 777-3) message] The sy stem which generated this result transmitted reference range : 150 - 328 10*3/ ?L. The reference r los was not used to interpret this result as normal/abnormal . MPV (test code = 10.5 fL 9.8-13 82795-2) NRBC/100 WBC (test See_Comment [Automat ed code = 1160341046) message] The system which generated this result transmitted reference range : 0.0 - 10.0 /100 WBCs. The refer ence range was not u sed to interpret th is result as normal/abnormal . NRBC x10^3 (test code See_Comment [Auto mated = 9058211673) message] The s ystem which generated this result transmitted reference range : 10*3/?L. The reference range was not used to interpret this result as normal/abnormal . GRAN MAT (NEUT) % 42.7 % (test code = 770-8) IMM GRAN % (test code 0.60 % = 7788488506) LYMPH % (test code = 41.6 % 736-9) MONO % (test code = 10.6 % 5905-5) EOS % (test code = 3.5 % 713-8) BASO % (test code = 1.0 % 706-2) GRAN MAT x10^3(ANC) 2.09 10*3/uL 1.99-6.95 (test code = 9111764977) IMM GRAN x10^3 (test 0.03 10*3/uL 0-0.06 code = 3201028506) LYMPH x10^3 (test code 2.04 10*3/uL 1.09-3.23 = 731-0) MONO x10^3 (test code 0.52 10*3/uL 0.36-1.02 = 742-7) EOS x10^3 (test code = 0.17 10*3/uL 0.06-0.53 711-2) BASO x10^3 (test code 0.05 10*3/uL 0.01-0.09 = 704-7) Lab Interpretation Abnormal (test code = 67991-6) [facility] Notes Date/Time Note Provider Source 2022-07-24 Formatting of this note might be differe nt from the original. Gonzales Zepeda [facility] 23:33:34-00:00 Pt unable to be located in a ssigned room, pt called overhead x3 and nearby premises searched. Pt unable to be located at this time. Pt LBBS after triage System Electronically signed by Gonzales Zepeda at 2022 11:34 PM INSURANCE SOLICITOR 2022-07-24 [facility] 22:19:05-00:00 Pt now talking on phone System Electronically signed by Gonzales Zepeda at 2022 10:19 PM INSURANCE SOLICITOR 2022-07-24 [facility] 21:59:47-00:00 Pt located in exam room 5 la yesica down, unsure who took pt here. Pt is asleep but aroused by touch. Patient appears intoxicated and reports drinking alcohol today. Pt assisted back to wheel chair and placed back in room F7 in view of nurse's station System Electronically signed by Gonzales Zepeda at 2022 10:00 PM INSURANCE SOLICITOR 2022-07-24 Formatting of this note might be differe nt from the original. Willie Medina RN [facility] 20:58:07-00:00 Patient presents to EC in ho pes of getting help with ETOH abuse problem. Denies pain. Patient verbally verified name and on armband is correct. Patient advised to immediately report change in status System or symptoms to RN. Patient also instructed to inform staff if they are to leave area at any time. Patient verbalized understanding of instructions. RANCE SOLICITOR 2022-07-24 [facility] 20:54:43-00:00 Nayla Aguayo (mother): [phone] System Electronically signed by Sandy Mclain at 12/2022 8:55 PM INSURANCE SOLICITOR"
[2023-01-05 17:51] LABS: Absolute Lymphocytes (CBC) 2.6 K/uL (0.7-4.9); Hematocrit 44.7 % (39.6-49.0); Lymphocytes % 41.3 % (15.3-44.8); MCV 99.8 fL (80-100); MPV 8.7 fL (7.6-11.3); Platelets 147 thou/uL (152-406); RBC Red Blood Cell Count 4.48 M/uL (4.33-5.43)
--- NOTE | 2023-01-05 17:51 | RAD REPORT ---
EXAM DESCRIPTION: RAD - Chest Single View - 01/05/2023 5:37 pm CLINICAL HISTORY: CHEST PAIN COMPARISON: Chest Single View dated 12/03/2022; Chest Single View dated 04/25/2022; Chest Single View dated 02/02/2021; Chest Single View dated 08/14/2020 FINDINGS: Lines: None. Lungs: No evidence of edema or pneumonia. Pleural: No significant pleural effusions or pneumothorax. Cardiac: The heart size is within normal limits. Mediastinum: Within normal limits. Bones: No acute fractures. Other: None IMPRESSION: No acute cardiopulmonary disease.
[2023-01-05 17:58] LABS: Protime INR 0.9
[2023-01-05 18:09] LABS: Magnesium 1.8 mg/dL (1.6-2.4); Potassium 3.7 mEq/L (3.5-5.1); Troponin High Sensitivity 5.7 pg/mL (<58.9)
--- NOTE | 2023-01-05 18:52 | RAD REPORT ---
EXAM DESCRIPTION: CT - Chest For Pe Angio - 01/05/2023 6:38 pm CLINICAL HISTORY: CHEST PAIN COMPARISON: No comparisons TECHNIQUE: Dynamically enhanced axial 3 mm thick images of the chest were obtained during administra tion of <100> mL Isovue 370 IV contrast. Coronal and oblique reconstruction images were generated and reviewed. Exam utilizes a protocol for optimal evaluation of pulmonary arterial tree. Maximum intensity projections 3D imaging was utilized All CT scans are performed using dose optimization technique as appropriate and may include automated exposure control or mA/KV adjustment according to patient size. FINDINGS: Chest Wall: No suspicious thyroid nodules or pathologic lymphadenopathy. Lungs: No acute abnormality. Mild dependent atelectasis. Pleura: No significant effusions or pneumothorax. Mediastinum/efren: No pathologic lymphadenopathy. Pulmonary arteries/Aorta: No filling defect identified. No aortic aneurysm. Heart: No significant pericardial effusion. Normal heart size. Upper abdomen: No acute abnormality.Hepatic steatosis . Bones: No acute abnormality. Sebaceous cyst in the posterior chest wall. IMPRESSION: Negative for pulmonary embolism. No acute findings in the chest.
[2023-01-05] MEDS ORDERED: KETOROLAC 30 MG/ML INJ ONE (18:57)
--- NOTE | 2023-01-05 18:58 | ER ---
Nurse's Notes [facility] Name: Abiodun Lara Age: 42 yrs Sex: Male : 1980 Arrival Date: 01/05/2023 Time: 17:00 Bed 19 Private MD: Diagnosis: Heat exhaustion, muscle cramps Presentation: 01/05 17:04 Chief complaint: Patient states: Chest pain for 6 days, getting worse, "i feel like my nj1 left shoulder is swollen". Also co headache. Coronavirus screen: Vaccine status: Patient reports being unvaccinated. Ebola Screen: Patient denies travel to an Ebola-affected area in the 21 days before illness onset. Initial Sepsis Screen: Does the patient meet any 2 criteria? HR > 90 bpm. No. Patient's initial sepsis screen is negative. Does the patient have a suspected source of infection? No. Patient's initial sepsis screen is negative. Risk Assessment: Do you want to hurt yourself or someone else? Patient reports no desire to harm self or others. Onset of symptoms was December 30, 2022. 17:04 Method Of Arrival: Ambulatory [facility] 17:04 Acuity: CHENTE 3 nj1 Historical: - Allergies: 17:06 No Known Allergies; nj1 - PMHx: 17:06 Alcoholism; Anxiety; chronic back pain; Hypertension; nj1 - PSHx: 17:06 None; nj1 - Immunization history:: Client reports having NOT received the Covid vaccine. - Social history:: Smoking status: Patient reports the use of cigarette tobacco products, cigars. Screenin:44 [facility] ED Fall Risk Assessment (Adult) History of falling in the last 3 months, kc6 including since admission No falls in past 3 months (0 pts) Confusion or Disorientation No (0 pts) Intoxicated or Sedated No (0 pts) Impaired Gait No (0 pts) Mobility Assist Device Used No (0 pt) Altered Elimination No (0 pt) Score/Fall Risk Level 0 - 2 = Low Risk. Abuse screen: Denies threats or abuse. Denies injuries from another. Nutritional screening: No deficits noted. Tuberculosis screening: No symptoms or risk factors identified. Assessment: 17:45 General: Appears in no apparent distress. uncomfortable, Behavior is calm, cooperative, kc6 appropriate for age, drowsy, Smells of alcohol. Pain: Complains of pain in chest and left arm Pain currently is 8 out of 10 on a pain scale. Neuro: Level of Consciousness is awake, alert, obeys commands, Oriented to person, place, time, situation, Appropriate for age. Cardiovascular: Reports chest pain, Heart tones S1 S2 present Capillary refill < 3 seconds Rhythm is sinus rhythm. Respiratory: Airway is patent Trachea midline Respiratory effort is even, unlabored, Respiratory pattern is regular, symmetrical, Denies shortness of breath. GI: No signs and/or symptoms were reported involving the gastrointestinal system. : No signs and/or symptoms were reported regarding the genitourinary system. EENT: No signs and/or symptoms were reported regarding the EENT system. Derm: No signs and/or symptoms reported regarding the dermatologic system. Skin is intact, is healthy with good turgor, Skin is pink, warm \\T\\ dry. Musculoskeletal: No signs and/or symptoms reported regarding the musculoskeletal system. Circulation, motion, and sensation intact. Capillary refill < 3 seconds, Range of motion: intact in all extremities. 18:45 Reassessment: Patient appears in no apparent distress at this time. No changes from kc6 previously documented assessment. Patient and/or family updated on plan of care and expected duration. Pain level reassessed. Patient is alert, oriented x 3, equal unlabored respirations, skin warm/dry/pink. 19:20 Reassessment: Patient and/or family updated on plan of care and expected duration. Pain ha1 level reassessed. Patient is alert, oriented x 3, equal unlabored respirations, skin warm/dry/pink. Patient states feeling better. Patient states symptoms have improved. Vital Signs: 17:04 BP 130 / 96; Pulse 96; Resp 17; Temp 97.9; Pulse Ox 96% ; Weight 89.81 kg; Height 5 ft. nj1 11 in. ; Pain 9/10; 17:47 BP 115 / 87; Pulse 92; Resp 18 S; Pulse Ox 94% on R/A; Pain 8/10; kc6 19:05 BP 128 / 86; Pulse 84; Resp 17 S; Pulse Ox 97% on R/A; ha1 17:04 Body Mass Index 27.62 (89.81 kg, 180.34 cm) nj1 17:04 Pain Scale: Adult nj1 17:47 Pain Scale: Adult kc6 ED Course: 17:04 Patient arrived in ED. im 17:05 Misael Boland MD is Attending Physician. sp3 17:06 Triage completed. nj1 17:07 Arm band placed on right wrist. nj1 17:39 XRAY Chest (1 view) In Process Unspecified. EDMS 17:41 Araceli Linder, RN is Primary Nurse. kc6 17:41 Inserted saline lock: 20 gauge in right antecubital area, using aseptic technique. kc6 Blood collected. 17:45 Patient has correct armband on for positive identification. Bed in low position. Call kc6 light in reach. Side rails up X 1. 18:39 CT Chest For PE Angio In Process Unspecified. EDMS 19:00 Report given to Gaviota Ellis RN. kc6 19:05 US Extremity Venous Unilateral Ltd In Process Unspecified. EDMS 19:32 No provider procedures requiring assistance completed. IV discontinued, intact, pf1 bleeding controlled, No redness/swelling at site. Pressure dressing applied. Administered Medications: 18:49 Drug: Ketorolac IVP 30 mg Route: IVP; Site: right antecubital; kc6 19:16 Follow up: Response: No adverse reaction; Pain is decreased kc6 Medication: 19:20 VIS not applicable for this client. ha1 Outcome: 18:57 Discharge ordered by . sp3 19:31 Discharged to home ambulatory. pf1 19:31 Condition: improved 19:31 Discharge instructions given to patient, Instructed on discharge instructions, follow up and referral plans. Demonstrated understanding of instructions, follow-up care, medications, Prescriptions given X 1. 19:32 Patient left the ED. pf1 Signatures: Dispatcher [employer] EDCA Misael Boland MD MD sp3 Gaviota Ellis RN RN ha1 Araceli Linder RN RN kc6 Rosa Flowers RN RN pf1 Diamante Tim RN RN nj1 Antoinette Lara Corrections: (The following items were deleted from the chart) 17:07 17:04 Chief complaint: Patient states: Chest pain for 6 days, getting worse, "i feel nj1 like my left shoulder is swollen" nj1
--- NOTE | 2023-01-05 18:58 | EDPHYS ---
Physician Documentation [facility] Name: Abiodun Lara Age: 42 yrs Sex: Male : 1980 Arrival Date: 01/05/2023 Time: 17:00 Bed 19 Private MD: ED Physician Misael Boland HPI: 01/05 17:54 This 42 yrs old Male presents to ER via Ambulatory with complaints of Chest sp3 Pain. 17:54 42-year-old male with history of alcoholism, anxiety, chronic back pain, hypertension sp3 presents to the ED for chief complaint body aches and chest pain for the last 24 hours. 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 He denies any shortness of breath, jaw pain, left extremity pain, back pain, epigastric pain, syncope, or any other signs or symptoms at this time. ROS is otherwise negative. Patient also states that he has right calf pain on occasion. No prior history of DVT reported.. Historical: - Allergies: 17:06 No Known Allergies; nj1 - PMHx: 17:06 Alcoholism; Anxiety; chronic back pain; Hypertension; nj1 - PSHx: 17:06 None; nj1 - Immunization history:: Client reports having NOT received the Covid vaccine. - Social history:: Smoking status: Patient reports the use of cigarette tobacco products, cigars. ROS: 17:57 Constitutional: Negative for fever, chills, and weight loss, Eyes: Negative for injury, sp3 pain, redness, and discharge, ENT: Negative for injury, pain, and discharge, Neck: Negative for injury, pain, and swelling, Respiratory: Negative for shortness of breath, cough, wheezing, and pleuritic chest pain, Abdomen/GI: Negative for abdominal pain, nausea, vomiting, diarrhea, and constipation, Back: Negative for injury and pain, MS/Extremity: Negative for injury and deformity, Skin: Negative for injury, rash, and discoloration, Neuro: Negative for headache, weakness, numbness, tingling, and seizure, Psych: Negative for depression, anxiety, suicide ideation, homicidal ideation, and hallucinations, Allergy/Immunology: Negative for hives, rash, and allergies, Endocrine: Negative for neck swelling, polydipsia, polyuria, polyphagia, and marked weight changes. 17:57 All other systems are negative. Exam: 17:58 Constitutional: This is a well developed, well nourished patient who is awake, alert, sp3 and in no acute distress. Head/Face: Normocephalic, atraumatic. Eyes: Pupils equal round and reactive to light, extra-ocular motions intact. Lids and lashes normal. Conjunctiva and sclera are non-icteric and not injected. Cornea within normal limits. Periorbital areas with no swelling, redness, or edema. ENT: Nares patent. No nasal discharge, no septal abnormalities noted. External auditory canals are clear. Oropharynx with no redness, swelling, or masses, exudates, or evidence of obstruction, uvula midline. Mucous membranes moist. Neck: Trachea midline, no thyromegaly or masses palpated, and no cervical lymphadenopathy. Supple, full range of motion without nuchal rigidity, or vertebral point tenderness. No Meningismus. Chest/axilla: Normal chest wall appearance and motion. Nontender with no deformity. No lesions are appreciated. Cardiovascular: Regular rate and rhythm with a normal S1 and S2. No gallops, murmurs, or rubs. Normal PMI, no JVD. No pulse deficits. Respiratory: Lungs have equal breath sounds bilaterally, clear to auscultation and percussion. No rales, rhonchi or wheezes noted. No increased work of breathing, no retractions or nasal flaring. Abdomen/GI: Soft, non-tender, with normal bowel sounds. No distension or tympany. No guarding or rebound. No evidence of tenderness throughout. Back: No spinal tenderness. No costovertebral tenderness. Full range of motion. Skin: Warm, dry with normal turgor. Normal color with no rashes, no lesions, and no evidence of cellulitis. 17:58 ECG was reviewed by the Attending Physician. EKG demonstrates normal sinus rhythm at 86 sp3 bpm with normal intervals, normal QRS, normal axis, normal ST/T-segment's without evidence of acute ischemia. Vital Signs: 17:04 BP 130 / 96; Pulse 96; Resp 17; Temp 97.9; Pulse Ox 96% ; Weight 89.81 kg; Height 5 ft. nj1 11 in. ; Pain 9/10; 17:47 BP 115 / 87; Pulse 92; Resp 18 S; Pulse Ox 94% on R/A; Pain 8/10; kc6 19:05 BP 128 / 86; Pulse 84; Resp 17 S; Pulse Ox 97% on R/A; ha1 17:04 Body Mass Index 27.62 (89.81 kg, 180.34 cm) nj1 17:04 Pain Scale: Adult nj1 17:47 Pain Scale: Adult kc6 MDM: 17:30 Patient medically screened. sp3 17:58 Data reviewed: vital signs, nurses notes. ED course: 42-year-old male with PMH above sp3 now presents with body aches and chest pain after working for 6 days straight. Differential diagnosis is broad and includes musculoskeletal pain, dehydration, heat exhaustion, and too much less likely probability acute coronary syndrome and pulmonary embolism. Will obtain laboratory values, EKG which was already done, chest x-ray and PE work-up with right lower extremity ultrasound and CT scan of the chest. If work-up is negative and patient feels better, patient can safely be discharged home. Given the time of symptoms 1 set of cardiac markers will be sufficient to rule out ACS. I believe patient's most likely etiology is heat related illness and dehydration causing muscle cramps due to overuse. 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 Disposition likely discharge but patient will likely be signed out to nighttime physician.. 18:57 ED course: Work-up was negative including troponin, CT scan of the chest PE protocol, sp3 and ultrasound right lower extremity. Ultrasound report was given by certified medical technician with report still pending however there is no evidence of clot and I was therefore part of the exam as well. Patient's vital signs remained stable we will safely discharge him home at this time. Diagnosis will be heat exhaustion and muscle cramps.. 01/05 17:13 Order name: Basic Metabolic Panel; Complete Time: 18:27 sp3 01/05 17:13 Order name: CBC with Diff; Complete Time: 18:27 sp3 01/05 17:13 Order name: Magnesium; Complete Time: 18:27 sp3 01/05 17:13 Order name: NT PRO-BNP; Complete Time: 18:27 sp3 01/05 17:13 Order name: PT-INR; Complete Time: 18:27 sp3 01/05 17:13 Order name: Troponin HS; Complete Time: 18:27 sp3 01/05 17:13 Order name: XRAY Chest (1 view); Complete Time: 18:27 sp3 01/05 17:50 Order name: CT Chest For PE Angio; Complete Time: 18:53 sp3 01/05 17:50 Order name: US Extremity Venous Unilateral Ltd sp3 01/05 17:13 Order name: EKG; Complete Time: 17:14 sp3 01/05 17:13 Order name: Cardiac monitoring; Complete Time: 17:41 sp3 01/05 17:13 Order name: EKG - Nurse/Tech; Complete Time: 17:41 sp3 01/05 17:13 Order name: IV Saline Lock; Complete Time: 17:41 sp3 01/05 17:13 Order name: Labs collected and sent; Complete Time: 17:41 sp3 01/05 17:13 Order name: O2 Per Protocol; Complete Time: 17:41 sp3 01/05 17:13 Order name: O2 Sat Monitoring; Complete Time: 17:41 sp3 Administered Medications: 18:49 Drug: Ketorolac IVP 30 mg Route: IVP; Site: right antecubital; kc6 19:16 Follow up: Response: No adverse reaction; Pain is decreased kc6 Disposition Summary: 01/05/23 18:57 Discharge Ordered Location: Home sp3 Condition: Stable sp3 Diagnosis - Heat exhaustion, muscle cramps sp3 Followup: sp3 - With: Private Physician - When: Upon discharge from the Emergency Department - Reason: Recheck today's complaints Discharge Instructions: - Discharge Summary Sheet sp3 - Heat Exhaustion sp3 Forms: - Medication Reconciliation Form sp3 - Thank You Letter sp3 - Antibiotic Education sp3 - Prescription Opioid Use sp3 - Patient Portal Instructions sp3 - Leadership Thank You Letter sp3 Prescriptions: - Diclofenac Sodium 75 mg Oral Tablet Sustained Release - take 1 tablet by ORAL route 2 times per day; 30 tablet; Refills: 0, Product sp3 Selection Permitted Signatures: Dispatcher [employer] EDMisael Leblanc MD MD sp3 Araceli Linder RN RN kc6 Diamante Tim RN RN nj1 Corrections: (The following items were deleted from the chart) 17:58 17:54 42-year-old male with history of alcoholism, anxiety, chronic back pain, sp3 hypertension presents to the ED for chief complaint body aches and chest pain for the last 24 hours. 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 He denies any shortness of breath, jaw pain, left extremity pain, back pain, epigastric pain, syncope, or any other signs or symptoms at this time. ROS is otherwise negative.. sp3
--- NOTE | 2023-01-05 19:16 | RAD REPORT ---
EXAM DESCRIPTION: US - Extremity Venous Uni Ltd - 01/05/2023 7:03 pm CLINICAL HISTORY: Pain COMPARISON: None. TECHNIQUE: Real-time sonographic evaluation of the right lower extremity deep venous system was perf ormed. FINDINGS: Normal compressibility, flow augmentation, phasic flow and spontaneous flow is identified in the right lower extremity deep venous system. No intraluminal filling defects seen. IMPRESSION: No DVT in the right lower extremity.
[2023-01-05 20:12] VITALS: TEMP 97.9
[2023-01-05 20:13] VITALS: BP 115/87; O2SAT 94
--- NOTE | 2023-01-06 18:10 | EKG ---
Test Date: 2023-01-05 Test Time: 17:27:14 Sales Special Agent: MCKAYLA MEASUREMENT RESULTS: Intervals: Rate: 86 AL: 140 QRSD: 112 QT: 374 QTc: 447 [place]: P: 49 AL: 140 QRS: 70 T: 69 INTERPRETIVE STATEMENTS: Normal sinus rhythm Normal ECG Compared to ECG 12/03/2022 01:28:40 No significant changes Electronically Signed On 01-06-23 18:01:21 CDT by Rayumndo Mccauley
== END 2023-01-05 19:32 | disposition home or self-care (01) ==
LOC: ER 17:00
DX: T67.5XXA Heat exhaustion, unspecified, initial encounter (principal); R07.9 Chest pain, unspecified; I10 Essential (primary) hypertension; F10.20 Alcohol dependence, uncomplicated; Z72.0 Tobacco use
CPT/HCPCS: 93005; 85025; 80048; 36415; 83735; 85610; 84484; 83880; 71275; 71045; 93971; 96374; 99284; Q9967

== ENCOUNTER 2023-03-09 10:53 | Observation (INO) | payer OTHER ==
--- OUTSIDE RECORDS SUMMARY | 2023-03-09 10:56 | XMS REPORT | Continuity of Care Document ---
:1980 [facility] t Address [address] [facility] [address] [place] [address] Care Team Providers Name Role Phone Hina Ortega Primary Care Physician FARIDEH STARKS Attending Clinician Unavailable Payers Payer Name Policy Type Policy Number Effective Date Expiration Date S ource Problems Condition Condition Condition Status Onset Resolution Last Treating Co mments Source Name Details Category Date Date Treatment Clinician Date Alcohol Alcohol Disease Active [facility] abuse abuse 12-19 ity of 00:00: [address] Generalize Generalize Disease Active U nivers d d 12-19 [place] 00 [facility] Aggressive Aggressive Disease Active 2021-0 U nivers behavior behavior 803 ity of 00:00: [address] Anger Anger Disease Active Univers 8-03 ity of 00:00: [address] Allergies, Adverse Reactions, Alerts Allergy Allergy Status Severity Reaction(s) Onset Inactive Treating Comm ents Source Name Type Date Date Clinician NO KNOWN Drug Active Univers ALLERGIE Class ity of S [facility] Social History Social Habit Start Date Stop Date Quantity Comments Source Sexual orientation [facility] Gender identity [facility] alth Exposure to SARS-CoV-2 2022-07-14 2022-07-24 Not sure [facility] (event) 00:00:00 20:53:00 History of Social 2022-07-24 2022-07-24 [facility] function 00:00:00 00:00:00 Sex Assigned At [birth year] [facility] 00:00:00 00:00:00 Smoking Status Start Date Stop Date Source Tobacco smoking consumption [facility] Medications Ordered Filled Start Stop [...] Observation Time Observation Value Comments Source Body weight 2022-07-24 20:53:00 81.647 kg [facility] BMI 2022-07-24 20:53:00 25.10 kg/m2 [facility] Oxygen saturation in 2022-07-24 20:53:00 97 /min [facility] Arterial blood by Pulse oximetry Systolic blood 2022-07-24 20:53:00 138 mm[Hg] [facility] pressure Diastolic blood 2022-07-24 20:53:00 100 mm[Hg] [facility] pressure Systolic blood 2022-07-24 20:53:00 138 mm[Hg] [facility] pressure Diastolic blood 2022-07-24 20:53:00 100 mm[Hg] [facility] pressure Heart rate 2022-07-24 20:53:00 97 /min [facility] Body temperature 2022-07-24 20:53:00 36.78 Corina [facility] Respiratory rate 2022-07-24 20:53:00 18 /min [facility] is [facility] Body height 2022-07-24 20:53:00 180.3 cm [facility] Body weight 2022-07-24 20:53:00 81.647 kg [facility] BMI 2022-07-24 20:53:00 25.10 kg/m2 [facility] Oxygen saturation in 2022-07-24 20:53:00 97 /min [facility] Arterial blood by Pulse oximetry Heart rate 2022-07-24 20:53:00 97 /min [facility] Body temperature 2022-07-24 20:53:00 36.78 [facility] Respiratory rate 2022-07-24 20:53:00 18 /min [facility] Body height 2022-07-24 20:53:00 180.3 cm [facility] weight 2022-07-24 20:53:00 81.647 kg [facility] BMI 2022-07-24 20:53:00 25.10 kg/m2 [facility] Oxygen saturation in 2022-07-24 20:53:00 97 /min [facility] Arterial blood by Pulse oximetry Systolic blood 2022-07-24 20:53:00 138 mm[Hg] [facility] pressure Diastolic blood 2022-07-24 20:53:00 100 mm[Hg] [facility] pressure Systolic blood 2022-07-24 20:53:00 138 mm[Hg] [facility] pressure Diastolic blood 2022-07-24 20:53:00 100 mm[Hg] [facility] pressure Heart rate 2022-07-24 20:53:00 97 /min [facility] Body temperature 2022-07-24 20:53:00 36.78 [facility] Respiratory rate 2022-07-24 20:53:00 18 /min [facility] Body height 2022-07-24 20:53:00 180.3 cm [facility] Body weight 2022-07-24 20:53:00 81.647 kg [facility] BMI 2022-07-24 20:53:00 25.10 kg/m2 [facility] Oxygen saturation in 2022-07-24 20:53:00 97 /min [facility] Arterial blood by Pulse oximetry Heart rate 2022-07-24 20:53:00 97 /min [facility] Body temperature 2022-07-24 20:53:00 36.78 [facility] Respiratory rate 2022-07-24 20:53:00 18 /min [facility] Body height 2022-07-24 20:53:00 180.3 cm [facility] Body temperature 2021-12-19 19:17:00 36.67 [facility] Systolic blood 2021-12-19 19:16:00 129 mm[Hg] Univer sity of pressure [facility] Diastolic blood 2021-12-19 19:16:00 95 mm[Hg] Unive rsity of pressure [facility] Heart rate 2021-12-19 19:16:00 100 /min Universi ty [facility] Respiratory rate 2021-12-19 19:16:00 16 /min Univ ersity of [facility] Body height 2021-12-19 19:16:00 180.3 cm Universi ty [facility] Body weight 2021-12-19 19:16:00 77.111 kg Universi ty [facility] BMI 2021-12-19 19:16:00 23.71 kg/m2 Universi [facility] Oxygen saturation in 2021-12-19 19:16:00 99 /min [facility] Arterial blood by [facility] Pulse oximetry Branch Systolic blood 2022-07-24 20:53:00 138 mm[Hg] [facility] pressure Diastolic blood 2022-07-24 20:53:00 100 mm[Hg] Kod[facility] pressure Heart rate 2022-07-24 20:53:00 97 /min [facility] Body temperature 2022-07-24 20:53:00 36.78 [facility] Respiratory rate 2022-07-24 20:53:00 18 /min [facility] Body height 2022-07-24 20:53:00 180.3 cm [facility] Body weight 2022-07-24 20:53:00 81.647 kg [facility] BMI 2022-07-24 20:53:00 25.10 kg/m2 [facility] Oxygen saturation in 2022-07-24 20:53:00 97 /min [facility] Arterial blood by Pulse oximetry Procedures Procedure Date / Time Performed Performing Clinician [facility] e 12 LEAD EKG 2022-07-24 21:10:34 Avery Spann h 12 LEAD EKG 2022-07-24 21:10:34 Avery Spann h 12 LEAD EKG 2022-07-24 21:10:34 Avery Spann h LIPASE 2021-12-19 19:47:00 Farideh Starks o f [facility] COMP. METABOLIC PANEL 2021-12-19 19:47:00 [id number] CBC WITH DIFF 2021-12-19 19:47:00 Farideh Starks o f [facility] Plan of Care Planned Activity Planned Date Details Comments Source Future Scheduled Test 2023-02-16 00:00:00 IMM Influenza [facility] Seasonal (>/= 19 yrs) [code = IMM Influenza Seasonal (>/= 19 yrs)] Future Scheduled Test 2023-02-16 00:00:00 IMM Influenza [facility] Seasonal (>/= 19 yrs) [code = IMM Influenza Seasonal (>/= 19 yrs)] Future Scheduled Test 2022-02-16 00:00:00 IMM Influenza [facility] Seasonal (>/= 19 yrs) [code = IMM Influenza Seasonal (>/= 19 yrs)] Future Scheduled Test 1980 00:00:00 COVID-19 Vaccine (#1) [facility] [code = COVID-19 Vaccine (#1)] Future Scheduled Test 1980 00:00:00 COVID-19 Vaccine (#1) [facility] [code = COVID-19 Vaccine (#1)] Future Scheduled Test 1980 00:00:00 COVID-19 Vaccine (#1) [facility] [code = COVID-19 Vaccine (#1)] Encounters Start End Encounter Admission Attending Care Care Encounter Source Date/Time Date/Time Type Type Clinicians Facility Department ID 2022-07-24 2022-07-24 Emergency ERON ITZEL [id number] [place] 20:52:00 23:35:00 [facility] 350[facility]1.13.43 [facility] .2.7.2.6869 [id number] 6199-03-08 2022-07-24 Emergency ERON ITZEL [id number] [place] 20:52:00 23:35:00 GENERAL 350.1.13.43 [facility] .2.7.2.6869 [id number] 6096-08-03 2021-12-19 Emergency X JOSÉ LUIS STARKS ERT [id number] Univers 14:23:00 16:06:00 FARIDEH rubio [facility] 2021-12-19 2021-12-19 [facility] [id number] [facility] 14:23:00 16:06:00 Farideh STEVENSON 350.1.13.10 i [facility] [place] 4.2.7.2.686 [facility] [id number] [facility] 084 Branch Results Test Description Test Time Test Comments Results Result Sour e Comments EKG 12 LEAD EKG FOR CHP Eron H arris [address] [place] [address] 21:10:34 Test Date: 2040-34-14Tup Name: ROSS AKERS Department: 5520Patient ID: [id number] Room: Gender: M Tubing Oiler: [id number]: 1980 Requested By: AVERY SPANN Order Number: [id number] Reading MD: Adis Hart MeasurementsIntervals Oliver Rate: 89 P: 55PR: 141 QRS: 61QRSD: 126 T: 48QT: 359 QTc: 406 Interpretive StatementsSINUS RHYTHMMODERATE INTRAVENTRICULAR CONDUCTION DELAY [110+ ms QRS DURATION]Electronically Signed On 07-25-2022 10:14:30 [employer] by Adis Brown EKG 12 LEAD EKG FOR CHP Eron H arris [address] [place] [address] 21:10:34 Test Date: 0762-03-09Ype Name: ROSS AKERS Department: 5520Patient ID: [id number] Room: Gender: M Tubing Oiler: [id number]: 1980 Requested By: AVERY SPANN Order Number: [id number] Reading MD: Adis Hart MeasurementsIntervals Oliver Rate: 89 P: 55PR: 141 QRS: 61QRSD: 126 T: 48QT: 359 QTc: 406 Interpretive StatementsSINUS RHYTHMMODERATE INTRAVENTRICULAR CONDUCTION DELAY [110+ ms QRS DURATION]Electronically Signed On 07-25-2022 10:14:30 [employer] by Adis Brown EKG 12 LEAD EKG FOR CHP Eron Griggs [address] [place] [address] 21:10:34 Test Date: 9017-79-70Soz Name: ROSS NOLASCOA Department: 5520Patient ID: [id number] Room: Gender: M Tubing Oiler: [id number]: 1980 Requested By: AVERY SPANN Order Number: [id number] Reading MD: Adis Hart MeasurementsIntervals Oliver Rate: 89 P: 55PR: 141 QRS: 61QRSD: 126 T: 48QT: 359 QTc: 406 Interpretive StatementsSINUS RHYTHMMODERATE INTRAVENTRICULAR CONDUCTION DELAY [110+ ms QRS DURATION]Electronically Signed On 07-25-2022 10:14:30 [employer] by Adis Brown EKG 12 LEAD EKG FOR CHP Eron H [address] 21:10:34 Test Date: 9411-66-86Qyh Name: ROSS AKERS Department: 5520Patient ID: [id number] Room: Gender: M Tubing Oiler: [id number]: 1980 Requested By: AVERY SPANN Order Number: [id number] Reading MD: Adis Hart MeasurementsIntervals Oliver Rate: 89 P: 55PR: 141 QRS: 61QRSD: 126 T: 48QT: 359 QTc: 406 Interpretive StatementsSINUS RHYTHMMODERATE INTRAVENTRICULAR CONDUCTION DELAY [110+ ms QRS DURATION]Electronically Signed On 07-25-2022 10:14:30 [employer] by Adis Brown EKG 12 LEAD EKG FOR CHP Eron H [address] 21:10:34 Test Date: 5474-61-47Qsr Name: ROSS AKESR Department: 5520Patient ID: [id number] Room: Gender: M Tubing Oiler: [id number]: 1980 Requested By: AVERY SPANN Order Number: [id number] Reading MD: Adis Hart MeasurementsIntervals Oliver Rate: 89 P: 55PR: 141 QRS: 61QRSD: 126 T: 48QT: 359 QTc: 406 Interpretive StatementsSINUS RHYTHMMODERATE INTRAVENTRICULAR CONDUCTION DELAY [110+ ms QRS DURATION]Electronically Signed On 07-25-2022 10:14:30 [employer] by Adis Brown EKG 12 LEAD EKG FOR CHP Eron H [address] 21:10:34 Test Date: 2649-03-45Qdh Name: ROSS AKERS Department: 5520Patient ID: [id number] Room: Gender: M Tubing Oiler: [id number]: 1980 Requested By: AVERY SPANN Order Number: [id number] Reading MD: Adis Hart MeasurementsIntervals Oliver Rate: 89 P: 55PR: 141 QRS: 61QRSD: 126 T: 48QT: 359 QTc: 406 Interpretive StatementsSINUS RHYTHMMODERATE INTRAVENTRICULAR CONDUCTION DELAY [110+ ms QRS DURATION]Electronically Signed On 07-25-2022 10:14:30 [employer] by Adis Brown EKG 12 LEAD EKG FOR CHP Eorn H arris 8 [facility] 21:10:34 Test Date: 4023-26-12Epy Name: ROSS AKERS Department: 5520Patient ID: [id number] Room: Gender: M Tubing Oiler: [id number]: 1980 Requested By: AVERY SPANN Order Number: [id number] Reading MD: Adis Hart MeasurementsIntervals Oliver Rate: 89 P: 55PR: 141 QRS: 61QRSD: 126 T: 48QT: 359 QTc: 406 Interpretive StatementsSINUS RHYTHMMODERATE INTRAVENTRICULAR CONDUCTION DELAY [110+ ms QRS DURATION]Electronically Signed On 07-25-2022 10:14:30 [employer] by Adis Brown COMP. METABOLIC PANEL ([id number]) 2021-12-19 20:12:45 Test Item Value Reference Range Interpretation Comme nts NA (test code = 8357550606) 142 mmol/L 135-145 K (test code = 8392987185) 4.2 mmol/L 3.5-5 CL (test code = 2274576945) 105 mmol/L 98-108 CO2 TOTAL (test code = 0871050692) 26 mmol/L 23-31 AGAP (test code = 0600747492) 2-16 BUN (test code = 0071612949) 6 mg/dL 7-23 L GLUCOSE (test code = 6176800006) 90 mg/dL 70-110 CREATININE (test code = 0.57 mg/dL 0.6-1.25 L 9035105416) TOTAL BILI (test code = 0.4 mg/dL 0.1-1.3 5188858341) CALCIUM (test code = 2299220661) 9.3 mg/dL 8.6-10.6 T PROTEIN (test code = 8214535775) 7.5 g/dL 6.3-8.2 ALBUMIN (test code = 8298315933) 4.6 g/dL 3.5-5 ALK PHOS (test code = 6746949259) 68 U/L 34-122 ALTv (test code = 1742-6) 103 U/L 5-50 H AST(SGOT) (test code = 8955437294) 129 U/L 13-40 H eGFR (test code = 9259512373) mL/min/1.73m2 KRISHAN (test code = KRISHAN) Association [...] tests). Lab Interpretation (test code = Abnormal 82430-2) [facility] Test Item Value Reference Range Interpretation Comments LIPASE (test code = 9355866185) 70 U/L 0-220 Lab Interpretation (test code = Normal 75928-6) [facility] WITH [id number] 20:06:03 Test Item Value Reference Range Interpretation [...] RDW-SD (test code = 42.6 fL 38.5-51.6 95352-0) RDW-CV (test code = 12.0 % 12.1-15.4 L 788-0) PLT (test code = See_Comment L [Automated 777-3) message] The sy stem which generated this result transmitted reference range : 150 - 328 10*3/ ?L. The reference r los was not used to interpret this result as normal/abnormal . MPV (test code = 10.5 fL 9.8-13 98405-4) NRBC/100 WBC (test See_Comment [Automat ed code = 0608735379) message] The system which generated this result transmitted reference range : 0.0 - 10.0 /100 WBCs. The refer ence range was not u sed to interpret th is result as normal/abnormal . NRBC x10^3 (test code See_Comment [Auto mated = 7407856926) message] The s ystem which generated this result transmitted reference range : 10*3/?L. The reference range was not used to interpret this result as normal/abnormal . GRAN MAT (NEUT) % 42.7 % (test code = 770-8) IMM GRAN % (test code 0.60 % = 8670409101) LYMPH % (test code = 41.6 % 736-9) MONO % (test code = 10.6 % 5905-5) EOS % (test code = 3.5 % 713-8) BASO % (test code = 1.0 % 706-2) GRAN MAT x10^3(ANC) 2.09 10*3/uL 1.99-6.95 (test code = 1100006252) IMM GRAN x10^3 (test 0.03 10*3/uL 0-0.06 code = 6779953695) LYMPH x10^3 (test code 2.04 10*3/uL 1.09-3.23 = 731-0) MONO x10^3 (test code 0.52 10*3/uL 0.36-1.02 = 742-7) EOS x10^3 (test code = 0.17 10*3/uL 0.06-0.53 711-2) BASO x10^3 (test code 0.05 10*3/uL 0.01-0.09 = 704-7) Lab Interpretation Abnormal (test code = 50727-5) [facility]"
[2023-03-09] MEDS ORDERED: NA CHLORIDE 0.9% 1,000 ML ONE (11:16)
[2023-03-09] MEDS ORDERED: DIAZEPAM 10 MG/2 ML INJ SYRINGE ONE ×2 (11:16→13:02)
[2023-03-09 11:21] LABS: Hematocrit 49.6 % (39.6-49.0); Lymphocytes % 26.1 % (15.3-44.8); MCV 98.6 fL (80-100); MPV 8.7 fL (7.6-11.3); Platelets 145 thou/uL (152-406); RBC Red Blood Cell Count 5.03 M/uL (4.33-5.43)
[2023-03-09 11:26] LABS: Protime INR 0.92
[2023-03-09 11:37] LABS: Albumin 4.2 g/dL (3.4-5.0); Bilirubin Direct 0.2 mg/dL (0-0.2); Bilirubin Indirect, Calculated 0.7 mg/dL (0.2-0.8); Bilirubin Total 0.9 mg/dL (0.2-1.0); Potassium 3.4 mEq/L (3.5-5.1); Protein, Total 8.6 g/dL (6.4-8.2)
--- NOTE | 2023-03-09 11:58 | RAD REPORT ---
EXAM DESCRIPTION: CT - CTHCSPWOC - 03/09/2023 11:22 am CLINICAL HISTORY: Trauma, head and neck injury. seizure, fall, head injury COMPARISON: No comparisons TECHNIQUE: Axial 5 mm thick images of the head were obtained. Axial 2 mm thick images of the cervical spine were obtained with sagittal and coronal reconstruction images generated and reviewed. All CT scans are performed using dose optimization technique as appropriate and may include automated exposure control or mA/KV adjustment according to patient size. FINDINGS: CT HEAD WITHOUT CONTRAST: No acute hemorrhage, hydrocephalus or extra-axial collection is identified.No areas of brain edema or midline shift. Large hematoma overlying the vertex and occiput of the skull. The paranasal sinuses and mastoids are clear.The calvarium is intact. CT CERVICAL SPINE WITHOUT CONTRAST: No fracture or subluxation.No prevertebral soft tissues swelling is identified. IMPRESSION: No acute intracranial or cervical spine findings.Scalp hematoma. No underlying skull fra cture .
--- NOTE | 2023-03-09 12:55 | ER ---
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 Mother on scene reported he is a daily drinker, no seizure history. On scene pt AOx1, uncooperative, refused BGL, SBP 160s, HR 110s. Coronavirus screen: At this time, the client does not indicate any symptoms associated with coronavirus-19. Ebola Screen: No symptoms or risks identified at this time. Initial Sepsis Screen: Does the patient meet any 2 criteria? No. Patient's initial sepsis screen is negative. Does the patient have a suspected source of infection? No. Patient's initial sepsis screen is negative. Risk Assessment: Do you want to hurt yourself or someone else? Patient reports no desire to harm self or others. Onset of symptoms was March 09, 2023. 10:53 Method Of Arrival: EMS: [facility] 10:53 Acuity: CHENTE 2 hb Historical: - Allergies: 11:09 No Known Allergies; hb - Home Meds: 13:23 lisinopril 20 mg Oral tab 1 tab once daily [Active]; iw - PMHx: 11:09 Alcoholism; Anxiety; chronic back pain; Hypertension; hb - Immunization history:: Adult Immunizations up to date. - Family history:: not pertinent. - Social history:: Smoking status: Patient denies any tobacco usage or history of. Patient uses alcohol, on a daily basis. - Hospitalizations: : No recent hospitalization is reported. Screenin:16 [facility] ED Fall Risk Assessment (Adult) History of falling in the last 3 months, tm6 including since admission Yes- physiologic fall (2 pts). Abuse screen: Denies threats or abuse. Denies injuries from another. Nutritional screening: No deficits noted. Tuberculosis screening: No symptoms or risk factors identified. Assessment: 11:15 General: Appears in no apparent distress. Behavior is calm, cooperative, appropriate tm6 for age. Pain: Complains of pain in scalp. Neuro: Level of Consciousness is awake, alert, obeys commands, Oriented to person, place, time, situation. Cardiovascular: Capillary refill < 3 seconds Patient's skin is warm and dry. Respiratory: Airway is patent Respiratory effort is even, unlabored, Respiratory pattern is regular, symmetrical. GI: No signs and/or symptoms were reported involving the gastrointestinal system. GI: Abdomen is flat, non-distended. : No signs and/or symptoms were reported regarding the genitourinary system. EENT: No signs and/or symptoms were reported regarding the EENT system. Derm: No signs and/or symptoms reported regarding the dermatologic system. Musculoskeletal: No signs and/or symptoms reported regarding the musculoskeletal system. Vital Signs: 10:53 BP 162 / 107; Pulse 90; Resp 18; Temp 98; Pulse Ox 98% on R/A; hb 11:16 BP 162 / 107; Pulse 106; Resp 14; Pulse Ox 100% on R/A; Pain 5/10; tm6 11:53 BP 146 / 107; Pulse 95; Resp 12; Pulse Ox 97% on R/A; Pain 9/10; tm6 12:53 BP 158 / 108; Pulse 98; Resp 14; Pulse Ox 100% on R/A; Pain 8/10; ll1 11:16 Pain Scale: Adult tm6 11:53 Pain Scale: Adult tm6 12:53 Pain Scale: Adult ll1 ED Course: 10:56 Patient arrived in ED. iw 10:56 Joe Marti MD is Attending Physician. rn 10:58 Jodi Aguirre RN is Primary Nurse. ld1 11:08 Triage completed. hb 11:16 Patient has correct armband on for positive identification. Placed in gown. Bed in low tm6 position. Call light in reach. Side rails up X2. Client placed on continuous cardiac and pulse oximetry monitoring. NIBP monitoring applied. special education resource teacher on. Noise minimized. Warm blanket given. 11:16 No provider procedures requiring assistance completed. Inserted saline lock: 20 gauge tm6 in right antecubital area, using aseptic technique. 11:24 CT Head C Spine In Process Unspecified. EDMS 12:54 Lorenzo Saavedra MD is Hospitalizing Provider. rn Administered Medications: 11:13 Drug: Diazepam IVP 5 mg IVP once Route: IVP; Site: left antecubital; ld1 11:13 Drug: NS 0.9% IV 1000 ml IV at 1000 ml once Route: IV; Rate: 1000 ml; Site: left ld1 antecubital; 12:52 Drug: Diazepam IVP 10 mg IVP once Route: IVP; Site: right antecubital; ll1 12:53 Drug: morphine IVP or IV 4 mg IVP once over 4 mins Route: IVP; Infused Over: 4 mins; ll1 Site: right antecubital; 13:53 Drug: cloNIDine PO 0.2 mg PO once Route: PO; ld1 Medication: 11:16 VIS not applicable for this client. tm6 Outcome: 12:54 Decision to Hospitalize by Provider. rn 15:23 Patient left the ED. iw Signatures: Dispatcher [employer] Madelin Fajardo RN RN iw Joe Marti MD MD rn Baxter, Heather, RN RN hb Lewis, Lynsay, RN RN 1 Jodi Aguirre RN RN ld1 Pratima Lucas RN RN tm6 Corrections: (The following items were deleted from the chart) 10:59 10:58 Chief complaint: ld1 ld1
--- NOTE | 2023-03-09 12:55 | EDPHYS ---
Physician Documentation [facility] Name: Abiodun Lara Age: 43 yrs Sex: Male : 1980 Arrival Date: 03/09/2023 Time: 10:53 Bed 3 Private MD: ED Physician Joe Marti HPI: 03/09 11:09 This 43 yrs old Male presents to ER via EMS with complaints of Probable rn Seizure. 11:09 The patient presents after having a single isolated seizure. Character of seizure(s): rn Loss of consciousness: the patient experienced loss of consciousness, Motor activity: generalized, Incontinence: none, Eye movements: are unknown. Seizure onset: just prior to arrival. Associated injury: Head/face: left side of the back of head and right side of the back of head. Current symptoms: confusion, headache. The patient has not experienced similar symptoms in the past. The patient has not recently seen a physician. Patient brought in by EMS, was in a convenience store and fell with reported seizure-like activity. Patient reports daily drinker and alcoholic, over the last 5 days has been trying to taper down and wants to quit. Reports headache and feels confused as well as soreness all over but no other focal injury or pain.. Historical: - Allergies: 11:09 No Known Allergies; hb - Home Meds: 13:23 lisinopril 20 mg Oral tab 1 tab once daily [Active]; iw - PMHx: 11:09 Alcoholism; Anxiety; chronic back pain; Hypertension; hb - Immunization history:: Adult Immunizations up to date. - Family history:: not pertinent. - Social history:: Smoking status: Patient denies any tobacco usage or history of. Patient uses alcohol, on a daily basis. - Hospitalizations: : No recent hospitalization is reported. ROS: 11:09 Constitutional: Negative for fever, chills, and weight loss, Eyes: Negative for injury, rn pain, redness, and discharge, Neck: Negative for injury, pain, and swelling, Cardiovascular: Negative for chest pain, palpitations, and edema, Respiratory: Negative for shortness of breath, cough, wheezing, and pleuritic chest pain, Abdomen/GI: Negative for abdominal pain, nausea, vomiting, diarrhea, and constipation, Back: Negative for injury and pain, MS/Extremity: Negative for injury and deformity, Skin: Negative for injury, rash, and discoloration, Neuro: Positive for headache and seizure Exam: 11:09 Constitutional: This is a well developed, well nourished patient who is awake, alert, rn and in no acute distress. Head/Face: Moderate size hematoma on the top back of scalp, no depression, no laceration or bleeding Eyes: Pupils equal round and reactive to light, extra-ocular motions intact. ENT: Dry mucous membranes with tongue fasciculations noted Cardiovascular: Tachycardic, regular. No pulse deficits Respiratory: No increased work of breathing, no retractions or nasal flaring. Abdomen/GI: Soft, non-tender Skin: Warm, dry MS/ Extremity: Pulses equal, no cyanosis. Full range of motion of all 4 extremities without deformities Neuro: Awake and alert, GCS 15, oriented to person, place, not time. Cranial nerves II-XII grossly intact. Motor strength 5/5 in all extremities. Sensory grossly intact. Bilateral upper extremity tremor noted Vital Signs: 10:53 BP 162 / 107; Pulse 90; Resp 18; Temp 98; Pulse Ox 98% on R/A; hb 11:16 BP 162 / 107; Pulse 106; Resp 14; Pulse Ox 100% on R/A; Pain 5/10; tm6 11:53 BP 146 / 107; Pulse 95; Resp 12; Pulse Ox 97% on R/A; Pain 9/10; tm6 12:53 BP 158 / 108; Pulse 98; Resp 14; Pulse Ox 100% on R/A; Pain 8/10; ll1 11:16 Pain Scale: Adult tm6 11:53 Pain Scale: Adult tm6 12:53 Pain Scale: Adult ll1 MDM: 10:56 Patient medically screened. rn 12:51 Differential diagnosis: seizure, Cardiac etiology, electrolyte disorder, alcohol rn withdrawal, alcohol withdrawal seizure. Data reviewed: vital signs, nurses notes, lab test result(s), EKG, radiologic studies, CT scan, and as a result, I will admit patient. Consideration of Admission/Observation Patient was admitted/placed on observation. Escalation of care including admission/observation considered. Management of patient was discussed with the following: Hospitalist: . Counseling: I had a detailed discussion with the patient and/or guardian regarding the historical points, exam findings, and any diagnostic results supporting the discharge/admit diagnosis, lab results, radiology results, the need for further work-up and treatment in the hospital. Response to treatment: the patient's symptoms have mildly improved after treatment, and as a result, I will admit patient. ED course: CT head and C-spine negative. Presentation most consistent with alcohol withdrawal seizure. Patient still extremely hypertensive and tachycardic despite Valium administration. We will repeat Valium, continue fluids and admit to hospitalist.. ED course: I personally spent 35 minutes engaged in work directly related to the individual patient's care. This does not include any time spent performing procedures. The patient has been deemed critically ill because of alcohol withdrawal/delirium tremens with extremely high blood pressure, tachycardia, and seizure. 03/09 10:57 Order name: CBC with Diff; Complete Time: 11:38 rn 03/09 10:57 Order name: Basic Metabolic Panel; Complete Time: 11:38 rn 03/09 10:57 Order name: Protime (+inr); Complete Time: 11:38 rn 03/09 10:57 Order name: Ptt, Activated; Complete Time: 11:38 rn 03/09 10:57 Order name: LFT's; Complete Time: 11:38 rn 03/09 11:13 Order name: Glucose, Ancillary Testing; Complete Time: 11:38 EDW[facility] 03/09 14:38 Order name: Comprehensive Metabolic Panel ED[facility] 03/09 14:38 Order name: Urinalysis W/Microscopic [facility] 03/09 14:38 Order name: Urine Drug Screen [facility] 03/09 14:39 Order name: Creatine Phosphokinase [facility] 03/09 14:42 Order name: CBC with Automated Diff EDMS 03/09 14:42 Order name: CBC with Automated Diff [facility] 03/09 14:42 Order name: Comprehensive Metabolic Panel [facility] 03/09 14:42 Order name: Comprehensive Metabolic Panel [facility] 03/09 14:42 Order name: Creatine Phosphokinase [facility] 03/09 14:42 Order name: Creatine Phosphokinase [facility] 03/09 14:42 Order name: Creatine Phosphokinase [facility] 03/09 14:42 Order name: Creatine Phosphokinase ED[facility] 03/09 14:42 Order name: Protime (+INR) EDMS 03/09 14:42 Order name: Protime (+INR) ED[facility] 03/09 14:42 Order name: PTT, Activated Partial Thromb EDMS 03/09 14:42 Order name: PTT, Activated Partial Thromb EDMS 03/09 10:57 Order name: CT Head C Spine; Complete Time: 12:25 rn 03/09 14:42 Order name: CONS Physician Consult EDMS 03/09 10:57 Order name: IV Start; Complete Time: 11:19 rn 03/09 10:57 Order name: Cardiac monitoring; Complete Time: 10:58 rn 03/09 10:57 Order name: O2 Sat Monitoring; Complete Time: 10:58 rn Administered Medications: 11:13 Drug: Diazepam IVP 5 mg IVP once Route: IVP; Site: left antecubital; ld1 11:13 Drug: NS 0.9% IV 1000 ml IV at 1000 ml once Route: IV; Rate: 1000 ml; Site: left ld1 antecubital; 12:52 Drug: Diazepam IVP 10 mg IVP once Route: IVP; Site: right antecubital; ll1 12:53 Drug: morphine IVP or IV 4 mg IVP once over 4 mins Route: IVP; Infused Over: 4 mins; ll1 Site: right antecubital; 13:53 Drug: cloNIDine PO 0.2 mg PO once Route: PO; ld1 Disposition Summary: 03/09/23 12:54 Hospitalization Ordered Notes: Hospitalization Status: Inpatient Admission rn Provider: Lorenzo Saavedra rn Location: Telemetry/[facility] (Inpatient) rn Condition: Stable rn Problem: new rn Symptoms: have improved rn Bed/Room Type: Standard rn Room Assignment: rn Diagnosis - Alcohol dependence with withdrawal - Complicated by seizure rn - Acidosis rn - Dehydration rn - Altered mental status, unspecified rn Forms: - Medication Reconciliation Form rn - SBAR form rn - Leadership Thank You Letter rn new graduate time excluding procedures: 12:51 Critical care time: Bedside Care: 35 minutes. Total time: 35 minutes rn Signatures: Dispatcher [employer] Madelin Fajardo RN Joe Jara MD MD rn Baxter, Heather RN Giovana Phillips RN RN ll1 Jodi Aguirre RN RN ld1 Pratima Lucas, RN RN tm6
[2023-03-09] MEDS ORDERED: MORPHINE 4 MG/ML SYR ONE (13:02)
[2023-03-09] MEDS ORDERED: cloNIDine HCL 0.1 MG TAB ONE (14:05)
[2023-03-09] MEDS ORDERED: MORPHINE 2 MG/ML SYR IV PRN (14:38)
[2023-03-09] MEDS ORDERED: ONDANSETRON 4 MG/2 ML VIAL IV PRN (14:38)
[2023-03-09] MEDS ORDERED: ACETAMINOPHEN 500 MG TAB PO PRN (14:38)
--- NOTE | 2023-03-09 14:38 | P.HP ---
Certification for Inpatient Patient admitted to: Observation With expected LOS: <2 Midnights Patient will require the following post-hospital care: None Practitioner: I am a practitioner with admitting privileges, knowledge of patient current condition, hospital course, and medical plan of care. Services: Services provided to patient in accordance with Admission requirements found in Title 42 Section 412.3 of the Code of Federal Regulations Patient History Date of Service: 03/09/23 Reason for admission: Seizure History of Present Illness: Patient is a 43-year-old gentleman with a history of alcohol abuse. He drinks very heavily but over the last couple of weeks he has been trying to cut down on his alcohol use. He is drinking just a sixpack a day and a couple shots every day. He states he was at the store with his son and he had a seizure. He is never had 1 happened before. He was concerned that it was from him withdrawing. He has never had a withdrawal seizure as he is taken himself off of alcohol in the past. He has detoxed himself without any difficulty. His blood pressure has also been significantly elevated. He says he normally has high blood pressure. His blood pressure runs 150/100 routinely. I did ask him about why he is not taking any medicine for this as he can go into heart failure at a young age. He did not really have much of an answer for me. We will go ahead and give him some medication to get his blood pressure down. He states he is feeling good he does not really see why he has to be in the hospital. He is trying to take himself off of alcohol so I told him I will go ahead and call in his Librium as well as medication for seizure and blood pressure. 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 If he stays we will monitor him overnight and get an MRI of the brain and get his blood pressure better controlled along with an echocardiogram. At this time anticipation is that patient will be admitted, but from talking to the nursing staff as well as the patient he will probably leave AGAINST MEDICAL ADVICE. Allergies No Known Allergies Allergy (Unverified 12/14/21 08:20) Home Medications: Buproprion S.r. [Wellbutrin Sr*] 150 mg PO DAILY 90 Days #90 tab 04/26/22 Losartan Potassium [Cozaar*] 50 mg PO BID #60 tablet 03/09/23 Metoprolol Tartrate [Lopressor] 50 mg PO BID #60 tab 03/09/23 chlordiazePOXIDE HCl [Chlordiazepoxide HCl] 10 mg PO Q8H #70 cap 03/09/23 levETIRAcetam [Keppra Tab] 500 mg PO BID #60 tab 03/09/23 - Past Medical/Surgical History -: Alcohol abuse -: Hypertension Past Surgical History: Patient denies surgical history - Family History Father Family History: Reviewed- Non-Contributory - Social History Smoking Status: Former smoker Alcohol use: Yes CD- Drugs: Yes Review of Systems 10-point ROS is otherwise unremarkable Physical Examination - Vital Signs Temperature: 98 F (reviewed) - Physical Exam General: Alert, In no apparent distress, Oriented x3 HEENT: Atraumatic, PERRLA, Mucous membr. moist/pink, EOMI, Sclerae nonicteric Neck: Supple, 2+ carotid pulse no bruit, No LAD, Without JVD or thyroid abnormality Respiratory: Clear to auscultation bilaterally, Normal air movement Cardiovascular: Regular rate/rhythm, Normal S1 S2 Gastrointestinal: Normal bowel sounds, Soft and benign, Non-distended, No tenderness Musculoskeletal: No clubbing, No swelling, No tenderness Integumentary: No rashes Neurological: Normal gait, Normal speech, Normal strength at 5/5 x4 extr, Normal tone, Sensation intact, Cranial nerves 3-12 intact, Normal affect Lymphatics: No axilla or inguinal lymphadenopathy - Studies Laboratory Data (last 24 hrs) 03/09/23 03/09/23 03/09/23 11:07 11:07 11:07 WBC 7.70 Hgb 17.2 Hct 49.6 H Plt Count 145 L PT 10.1 INR 0.92 APTT 30.0 Sodium 133 L Potassium 3.4 L BUN 8 Creatinine 1.19 Glucose 133 H Total Bilirubin 0.9 AST 82 H ALT 113 H Alkaline Phosphatase 71 Assessment & Plan - Problems (Diagnosis) (1) Alcohol abuse Current Visit: Yes Status: Acute (2) Seizure Current Visit: Yes Status: Acute (3) Hypertensive urgency Current Visit: Yes Status: Acute (4) Elevated liver enzymes Current Visit: Yes Status: Acute - Plan Plan: 1. IV fluids 2. Antiepileptics 3. Strict blood pressure control 4. Monitor labs. LFTs may be elevated because of elevated CK from seizure. CPK pending 5. Neurology consultation 6. MRI of the brain 7. EEG as an outpatient 8. GI DVT prophylaxis - Advance Directives Does patient have a Living Will: No Does patient have a Durable POA for Healthcare: No
[2023-03-09] MEDS ORDERED: NA CHLORIDE 0.9% 1,000 ML IV SCH (15:00)
== END 2023-03-09 15:19 | disposition home or self-care (01) ==
LOC: ER 10:53 → ERHOLD 14:38
PROVIDERS: ADMIT Hospitalist; ATTEND Hospitalist
DX: F10.239 Alcohol dependence with withdrawal, unspecified (principal); R56.9 Unspecified convulsions; I16.0 Hypertensive urgency; R79.89 Other specified abnormal findings of blood chemistry; E87.20 Acidosis, unspecified; E86.0 Dehydration; R41.82 Altered mental status, unspecified; Z87.891 Personal history of nicotine dependence
CPT/HCPCS: 85025; 80048; 36415; 85610; 82947; 80076; 85730; 70450; 72125; J3360 ×2; J7030; G0378

== ENCOUNTER 2023-03-19 18:58 | Observation (INO) | payer OTHER ==
--- OUTSIDE RECORDS SUMMARY | 2023-03-19 19:01 | XMS REPORT | Continuity of Care Document ---
:1980 Author Organization [facility] t Address [address] [facility] [address] [place] [id number] Care Team Providers Name Role Phone Hina Ortega Primary Care Physician FARIDEH STARKS Attending Clinician Unavailable Payers Payer Name Policy Type Policy Number Effective Date Expiration Date S ource Problems Condition Condition Condition Status Onset Resolution Last Treating Co mments Source Name Details Category Date Date Treatment Clinician Date Alcohol Alcohol Disease Active Univers abuse abuse 8 ity of 00:00: [address] Generalize Generalize Disease Active U nivers d d 12-19 [place] abdominal [place] 00 [facility] Aggressive Aggressive Disease Active 2021-0 U nivers behavior behavior 803 ity of 00:00: [address] Anger Anger Disease Active Univers 8-03 ity of 00:00: [address] Allergies, Adverse Reactions, Alerts Allergy Allergy Status Severity Reaction(s) Onset Inactive Treating Comm ents Source Name Type Date Date Clinician NO KNOWN Drug Active Univers ALLERGIE Class ity of S [facility] Social History Social Habit Start Date Stop Date Quantity Comments Source Sexual orientation [facility] Gender identity [facility] History of Social 2023-03-08 2023-03-08 [facility] function 00:00:00 00:00:00 Exposure to SARS-CoV-2 2022-07-14 2022-07-24 Not sure [facility] (event) 00:00:00 20:53:00 Sex Ass[birth year] At [birth year] [address] [facility] Health 00:00:00 00:00:00 Smoking Status Start Date Stop Date Source Tobacco smoking consumption Univ [facility] Medications Ordered Filled Start Stop [...] Source Systolic blood 2022-07-24 20:53:00 138 mm[Hg] [facility] pressure Diastolic blood 2022-07-24 20:53:00 100 mm[Hg] [facility] pressure Heart rate 2022-07-24 20:53:00 97 /min [facility] Body temperature 2022-07-24 20:53:00 36.78 Corina Kodi is [facility] Respiratory rate 2022-07-24 20:53:00 18 /min [facility] is [facility] Body height 2022-07-24 20:53:00 180.3 cm [facility] Body weight 2022-07-24 20:53:00 81.647 kg [facility] BMI 2022-07-24 20:53:00 25.10 kg/m2 [facility] Oxygen saturation in 2022-07-24 20:53:00 97 /min [facility] Arterial blood by Pulse oximetry Systolic blood 2022-07-24 20:53:00 138 mm[Hg] [facility] pressure Diastolic blood 2022-07-24 20:53:00 100 mm[Hg] [facility] pressure Heart rate 2022-07-24 20:53:00 97 /min [facility] Body temperature 2022-07-24 20:53:00 36.78 Corina Kodi [...] Heart rate 2022-07-24 20:53:00 97 /min [facility] Body temperature 2022-07-24 20:53:00 36.78 Corina [facility] Respiratory rate 2022-07-24 20:53:00 18 /min [facility] Body height 2022-07-24 20:53:00 180.3 cm [facility] Body weight 2022-07-24 20:53:00 81.647 kg [facility] BMI 2022-07-24 20:53:00 25.10 kg/m2 [facility] Oxygen saturation in 2022-07-24 20:53:00 97 /min [facility] Arterial blood by Pulse oximetry Systolic blood 2022-07-24 20:53:00 138 mm[Hg] [facility] pressure Diastolic blood 2022-07-24 20:53:00 100 mm[Hg] [facility] pressure Heart rate 2022-07-24 20:53:00 97 /min [facility] Body temperature 2022-07-24 20:53:00 36.78 Corina [facility] Respiratory rate 2022-07-24 20:53:00 18 /min [facility] Body height 2022-07-24 20:53:[address] [facility] Body weight 2022-07-24 20:53:[address] [facility] BMI 2022-07-24 20:53:00 25.10 kg/m2 [facility] Oxygen saturation in 2022-07-24 20:53:00 97 /min [facility] Arterial blood by Pulse oximetry Body temperature 2021-12-19 19:17:00 36.67 Corina Univ [facility] Systolic blood 2021-12-19 19:16:00 129 mm[Hg] Univer sity of pressure [facility] Diastolic blood 2021-12-19 19:16:00 95 mm[Hg] [facility] Heart rate 2021-12-19 19:16:00 100 /min [facility] Respiratory rate 2021-12-19 19:16:00 16 /min [facility] height 2021-12-19 19:16:00 180.3 cm [facility] Body weight 2021-12-19 19:16:00 77.111 kg [facility] BMI 2021-12-19 19:16:00 23.71 kg/m2 [facility] Oxygen saturation in 2021-12-19 19:16:00 99 /min University Arterial blood by [facility] Pulse oximetry Branch Systolic blood 2022-07-24 20:53:00 138 mm[Hg] [facility] pressure Diastolic blood 2022-07-24 20:53:00 100 mm[Hg] [facility] pressure Heart rate 2022-07-24 20:53:00 97 /min [facility] Body temperature 2022-07-24 20:53:00 36.78 Corina [facility] Respiratory rate 2022-07-24 20:53:00 18 /min [facility] Body height 2022-07-24 20:53:[address] [facility] Body weight 2022-07-24 20:53:[address] [facility] BMI 2022-07-24 20:53:00 25.10 kg/m2 [facility] Oxygen saturation in 2022-07-24 20:53:00 97 /min [facility] Arterial blood by Pulse oximetry Procedures Procedure Date / Time Performed Performing Clinician Reanna e 12 LEAD EKG 2022-07-24 21:10:34 Avery Spann h 12 LEAD EKG 2022-07-24 21:10:34 Avery Spann h 12 LEAD EKG 2022-07-24 21:10:34 Avery Spann h LIPASE 2021-12-19 19:47:00 Farideh Starks [facility] COMP. METABOLIC PANEL 2021-12-19 19:47:[address] [facility] ([id number]) [facility] CBC WITH DIFF 2021-12-19 19:47:00 Dai [facility] Plan of Care Planned Activity Planned Date Details Comments Source Future Scheduled Test 2023-02-16 00:00:00 IMM Influenza [facility] Seasonal (>/= 19 yrs) [code = IMM Influenza Seasonal (>/= 19 yrs)] Future Scheduled Test 2023-02-16 00:00:00 IMM Influenza [facility] Seasonal (>/= 19 yrs) [code = IMM Influenza Seasonal (>/= 19 yrs)] Future Scheduled Test 2023-01-17 00:00:00 IMM Influenza [facility] Seasonal (>/= 19 yrs) [code = IMM Influenza Seasonal (>/= 19 yrs)] Future Scheduled Test 2023-01-17 00:00:00 IMM Influenza [facility] Seasonal (>/= 19 yrs) [code = IMM Influenza Seasonal (>/= 19 yrs)] Future Scheduled Test 2022-02-16 00:00:00 IMM Influenza [facility] Seasonal (>/= 19 yrs) [code = IMM Influenza Seasonal (>/= 19 yrs)] Future Scheduled Test 1980 00:00:00 COVID-19 Vaccine (#1) [facility] [code = COVID-19 Vaccine (#1)] Future Scheduled Test 1980 00:00:00 COVID-19 Vaccine (#1) [facility] [code = COVID-19 Vaccine (#1)] Future Scheduled Test 1980 00:00:00 COVID-19 Vaccine (#1) [facility] [code = COVID-19 Vaccine (#1)] Future Scheduled Test 1980 00:00:00 COVID-19 Vaccine (#1) [facility] [code = COVID-19 Vaccine (#1)] Future Scheduled Test 1980 00:00:00 COVID-19 Vaccine (#1) [facility] [code = COVID-19 Vaccine (#1)] Encounters Start End Encounter Admission Attending Care Care Encounter Source Date/Time Date/Time Type Type Clinicians Facility Department ID 2022-07-24 2022-07-24 Emergency ERON ITZEL [id number] [place] 20:52:00 23:35:00 GENERAL [id number] He [facility] .[id number] 0916-03-08 2022-07-24 Emergency [facility] [id number] [place] 20:52:00 23:35:00 [facility] 2022-07-24 2022-07-24 Emergency ERON ITZEL [id number] [place] 20:52:00 23:35:00 GENERAL 350.1.13.43 [facility] .[id number] 9944-08-03 2021-12-19 Emergency X DAI, OHVICKY ERT [id number] Univers 14:23:00 16:06:00 FARIDEH rubio of [facility] 2021-12-19 2021-12-19 Emergency Dai, [facility] [id number] Univers 14:23:00 16:06:00 Farideh STEVENSON 350.1.13.10 i ty [facility] 4.2.7.2.686 [facility] [id number] [place] [address] Branch Results Test Description Test Time Test Comments Results Result [facility] e Comments EKG 12 LEAD EKG FOR CHP Eron H [address] 21:10:34 Test Date: 4423-07-56Vwr Name: ROSS AKERS Department: 5520Patient ID: [id number] Room: Gender: M Strategic Planning Specialist: [id number]: 1980 Requested By: AVERY SPANN Order Number: [id number] Reading MD: Adis Hart MeasurementsIntervals Antonito Rate: 89 P: 55PR: 141 QRS: 61QRSD: 126 T: 48QT: 359 QTc: 406 Interpretive StatementsSINUS RHYTHMMODERATE INTRAVENTRICULAR CONDUCTION DELAY [110+ ms QRS DURATION]Electronically Signed On 07-25-2022 10:14:30 TUMBLERS SUPERVISOR by Adis Brown EKG 12 LEAD EKG FOR CHP Eron H [address] 21:10:34 Test Date: 2411-34-35Dyw Name: ROSS NOLASCOA Department: 5520Patient ID: [id number] Room: Gender: M Strategic Planning Specialist: [id number]: 1980 Requested By: AVERY SPANN Order Number: [id number] Reading : Adis Hart MeasurementsIntervals Antonito Rate: 89 P: 55PR: 141 QRS: 61QRSD: 126 T: 48QT: 359 QTc: 406 Interpretive StatementsSINUS RHYTHMMODERATE INTRAVENTRICULAR CONDUCTION DELAY [110+ ms QRS DURATION]Electronically Signed On 07-25-2022 10:14:30 TUMBLERS SUPERVISOR by Adis Brown EK 12 LEAD EKG FOR CHP Eron H arr[address] 21:10:34 Test Date: 7834-18-34Gju Name: ROSS AKERS Department: 5520Patient ID: [id number] Room: Gender: M Strategic Planning Specialist: [id number]: 1980 Requested By: AVERY SPANN Order Number: [id number] Reading MD: Adis Hart MeasurementsIntervals Antonito Rate: 89 P: 55PR: 141 QRS: 61QRSD: 126 T: 48QT: 359 QTc: 406 Interpretive StatementsSINUS RHYTHMMODERATE INTRAVENTRICULAR CONDUCTION DELAY [110+ ms QRS DURATION]Electronically Signed On 07-25-2022 10:14:30 TUMBLERS SUPERVISOR by Adis Brown EK 12 LEAD EKG FOR CHP Eron H [address] 21:10:34 Test Date: 9517-06-08Qpl Name: ROSS AKERS Department: 5520Patient ID: [id number] Room: Gender: M Strategic Planning Specialist: [id number]: 1980 Requested By: AVERY SPANN Order Number: [id number] Reading MD: Adis Hart MeasurementsIntervals Antonito Rate: 89 P: 55PR: 141 QRS: 61QRSD: 126 T: 48QT: 359 QTc: 406 Interpretive StatementsSINUS RHYTHMMODERATE INTRAVENTRICULAR CONDUCTION DELAY [110+ ms QRS DURATION]Electronically Signed On 07-25-2022 10:14:30 TUMBLERS SUPERVISOR by Adis Brown EK 12 LEAD EKG FOR CHP Eron H [address] 21:10:34 Test Date: 3868-43-77Ocw Name: ROSS AKERS Department: 5520Patient ID: [id number] Room: Gender: M Strategic Planning Specialist: [id number]: 1980 Requested By: AVERY SPANN Order Number: [id number] Reading MD: Adis Hart MeasurementsIntervals Antonito Rate: 89 P: 55PR: 141 QRS: 61QRSD: 126 T: 48QT: 359 QTc: 406 Interpretive StatementsSINUS RHYTHMMODERATE INTRAVENTRICULAR CONDUCTION DELAY [110+ ms QRS DURATION]Electronically Signed On 07-25-2022 10:14:30 TUMBLERS SUPERVISOR by Adis Brown EKG 12 LEAD EKG FOR CHP Eron H arr[address] 21:10:34 Test Date: 1643-78-56Jsr Name: ROSS AKERS Department: 5520Patient ID: [id number] Room: Gender: M Strategic Planning Specialist: [id number]: 1980 Requested By: AVERY SPANN Order Number: [id number] Reading MD: Adis Hart MeasurementsIntervals Antonito Rate: 89 P: 55PR: 141 QRS: 61QRSD: 126 T: 48QT: 359 QTc: 406 Interpretive StatementsSINUS RHYTHMMODERATE INTRAVENTRICULAR CONDUCTION DELAY [110+ ms QRS DURATION]Electronically Signed On 07-25-2022 10:14:30 TUMBLERS SUPERVISOR by Adis Brown EKG 12 LEAD EKG FOR CHP Eron H arr[address] 21:10:34 Test Date: 9913-34-02Vlv Name: ROSS MOTTOZA Department: 5520Patient ID: [id number] Room: Gender: M Strategic Planning Specialist: [id number]: 1980 Requested By: AVERY SPANN Order Number: [id number] Reading MD: Adis Hart MeasurementsIntervals Antonito Rate: 89 P: 55PR: 141 QRS: 61QRSD: 126 T: 48QT: 359 QTc: 406 Interpretive StatementsSINUS RHYTHMMODERATE INTRAVENTRICULAR CONDUCTION DELAY [110+ ms QRS DURATION]Electronically Signed On 07-25-2022 10:14:30 TUMBLERS SUPERVISOR by Adis Brown EK 12 LEAD EKG FOR CHP Eron H [address] 21:10:34 Test Date: 0986-50-65Nmn Name: ROSS AKERS Department: 5520Patient ID: [id number] Room: Gender: M Strategic Planning Specialist: [id number]: 1980 Requested By: AVERY SPANN Order Number: [id number] Reading MD: Adis Hart MeasurementsIntervals Antonito Rate: 89 P: 55PR: 141 QRS: 61QRSD: 126 T: 48QT: 359 QTc: 406 Interpretive StatementsSINUS RHYTHMMODERATE INTRAVENTRICULAR CONDUCTION DELAY [110+ ms QRS DURATION]Electronically Signed On 07-25-2022 10:14:30 TUMBLERS SUPERVISOR by Adis Brown EKG 12 LEAD EKG FOR CHP Eron Dina arris 8 [facility] 21:10:34 Test Date: 3270-29-57Mmc Name: ROSS AKERS Department: 5520Patient ID: [id number] Room: Gender: M Strategic Planning Specialist: [id number]: 1980 Requested By: AVERY SPANN Order Number: [id number] Reading MD: Adis Hart MeasurementsIntervals Antonito Rate: 89 P: 55PR: 141 QRS: 61QRSD: 126 T: 48QT: 359 QTc: 406 Interpretive StatementsSINUS RHYTHMMODERATE INTRAVENTRICULAR CONDUCTION DELAY [110+ ms QRS DURATION]Electronically Signed On 07-25-2022 10:14:30 TUMBLERS SUPERVISOR by Adis Brown EKG 12 LEAD EKG FOR CHP Eron Griggs [address] [place] [address] 21:10:34 Test Date: 2155-12-47Cga Name: ROSS AKERS Department: 5520Patient ID: [id number] Room: Gender: M Strategic Planning Specialist: [id number]: 1980 Requested By: AVERY SPANN Order Number: [id number] Reading MD: Adis Hart MeasurementsIntervals Antonito Rate: 89 P: 55PR: 141 QRS: 61QRSD: 126 T: 48QT: 359 QTc: 406 Interpretive StatementsSINUS RHYTHMMODERATE INTRAVENTRICULAR CONDUCTION DELAY [110+ ms QRS DURATION]Electronically Signed On 07-25-2022 10:14:30 TUMBLERS SUPERVISOR by Adis Brown COMP. METABOLIC PANEL ([id number]) 2021-12-19 20:12:45 Test Item Value Reference Range Interpretation Comme nts NA (test code = 8958427259) 142 mmol/L 135-145 K (test code = 0811698116) 4.2 mmol/L 3.5-5 CL (test code = 3901267932) 105 mmol/L 98-108 CO2 TOTAL (test code = 0619243541) 26 mmol/L 23-31 AGAP (test code = 5769113508) 2-16 BUN (test code = 4915037663) 6 mg/dL 7-23 L GLUCOSE (test code = 1881763732) 90 mg/dL 70-110 CREATININE (test code = 0.57 mg/dL 0.6-1.25 L 4189113479) TOTAL BILI (test code = 0.4 mg/dL 0.1-1.1 6510977341) CALCIUM (test code = 0459614139) 9.3 mg/dL 8.6-10.6 T PROTEIN (test code = 9177240403) 7.5 g/dL 6.3-8.2 ALBUMIN (test code = 3194961846) 4.6 g/dL 3.5-5 ALK PHOS (test code = 1894922124) 68 U/L 34-122 ALTv (test code = 1742-6) 103 U/L 5-50 H AST(SGOT) (test code = 2157800309) 129 U/L 13-40 H eGFR (test code = 1401108034) mL/min/1.73m2 KRISHAN (test code = KRISHAN) Association [...] tests). Lab Interpretation (test code = Abnormal 62661-2) [facility] Test Item Value Reference Range Interpretation Comments LIPASE (test code = 4760670309) 70 U/L 0-220 Lab Interpretation (test code = Normal 42327-3) [facility] WITH [id number] 20:06:03 Test Item Value Reference Range Interpretation [...] RDW-SD (test code = 42.6 fL 38.5-51.6 59317-2) RDW-CV (test code = 12.0 % 12.1-15.4 L 788-0) PLT (test code = See_Comment L [Automated 777-3) message] The sy stem which generated this result transmitted reference range : 150 - 328 10*3/ ?L. The reference r los was not used to interpret this result as normal/abnormal . MPV (test code = 10.5 fL 9.8-13 06298-6) NRBC/100 WBC (test See_Comment [Automat ed code = 7960191619) message] The system which generated this result transmitted reference range : 0.0 - 10.0 /100 WBCs. The refer ence range was not u sed to interpret th is result as normal/abnormal . NRBC x10^3 (test code See_Comment [Auto mated = 9844273435) message] The s ystem which generated this result transmitted reference range : 10*3/?L. The reference range was not used to interpret this result as normal/abnormal . GRAN MAT (NEUT) % 42.7 % (test code = 770-8) IMM GRAN % (test code 0.60 % = 0426196971) LYMPH % (test code = 41.6 % 736-9) MONO % (test code = 10.6 % 5905-5) EOS % (test code = 3.5 % 713-8) BASO % (test code = 1.0 % 706-2) GRAN MAT x10^3(ANC) 2.09 10*3/uL 1.99-6.95 (test code = 0972328423) IMM GRAN x10^3 (test 0.03 10*3/uL 0-0.06 code = 0857265026) LYMPH x10^3 (test code 2.04 10*3/uL 1.09-3.23 = 731-0) MONO x10^3 (test code 0.52 10*3/uL 0.36-1.02 = 742-7) EOS x10^3 (test code = 0.17 10*3/uL 0.06-0.53 711-2) BASO x10^3 (test code 0.05 10*3/uL 0.01-0.09 = 704-7) Lab Interpretation Abnormal (test code = 21584-4) [facility]"
[2023-03-19] MEDS ORDERED: NA CHLORIDE 0.9% 1,000 ML ONE ×2 (19:56→21:44)
[2023-03-19 20:24] LABS: ALT/SGPT 127 U/L (16-61); AST/SGOT 81 U/L (15-37); Alkaline Phosphatase 75 U/L (45-117); BUN Blood Urea Nitrogen 5 mg/dL (7-18); Bicarbonate 25 mEq/L (21-32); Bilirubin Direct 0.2 mg/dL (0-0.2); Bilirubin Indirect, Calculated 0.2 mg/dL (0.2-0.8); Bilirubin Total 0.4 mg/dL (0.2-1.0); Glomerular Filtration Rate 117 ml/min (=/>90); Glucose Level 114 mg/dL (74-106); Potassium 3.5 mEq/L (3.5-5.1); Protein, Total 8.3 g/dL (6.4-8.2); Sodium Level 140 mEq/L (136-145)
[2023-03-19 20:39] LABS: Specific Gravity < 1.005 (1.005-1.030); Urine Bilirubin NEGATIVE (Negative); Urine Blood Negative (Negative); Urine Clarity Clear (Clear); Urine Color Colorless (Yellow); Urine Glucose NEGATIVE (Negative); Urine Protein NEGATIVE (Negative); Urine Urobilinogen Normal (Normal)
[2023-03-19 21:00] LABS: Protime INR 0.9
[2023-03-19 21:14] LABS: Barbiturates NEGATIVE (NEGATIVE); Benzodiazepines NEGATIVE (NEGATIVE); Cocaine NEGATIVE (NEGATIVE); METHAMPHETAM NEGATIVE (NEGATIVE); Methadone ND (NEGATIVE); Opiates NEGATIVE (NEGATIVE); Phencyclidine NEGATIVE (NEGATIVE); THC Cannibis POSITIVE (NEGATIVE)
[2023-03-19] MEDS ORDERED: THIAMINE 200 MG/2 ML INJ ONE (21:42)
[2023-03-19] MEDS ORDERED: MULTIVITAMINS 10 ML VIAL (INJ) IV ONE (21:43)
[2023-03-19] MEDS ORDERED: FOLIC ACID 5 MG/ML VIAL ONE (21:43)
[2023-03-19 21:52] LABS: Absolute Lymphocytes (CBC) 3.3 K/uL (0.7-4.9); Hematocrit 48.1 % (39.6-49.0); Lymphocytes % 44.9 % (15.3-44.8); MCV 97.6 fL (80-100); MPV 8.6 fL (7.6-11.3); Platelets 176 thou/uL (152-406); RBC Red Blood Cell Count 4.93 M/uL (4.33-5.43)
--- NOTE | 2023-03-19 23:35 | ER ---
Nurse's Notes [facility] Name: Abiodun Lara Age: 43 yrs Sex: Male : 1980 Arrival Date: 03/19/2023 Time: 18:58 Bed 6 Private MD: Diagnosis: Weakness;Alcohol abuse with intoxication, uncomplicated Presentation: 03/19 19:17 Chief complaint: Parent and/or Guardian states: He was here recently for a recently ha1 fall. Ever since he got discharge he has not been eating well, appears very weak. Coronavirus screen: Vaccine status: Patient reports being unvaccinated. Ebola Screen: No symptoms or risks identified at this time. Initial Sepsis Screen: Does the patient meet any 2 criteria? No. Patient's initial sepsis screen is negative. Does the patient have a suspected source of infection? No. Patient's initial sepsis screen is negative. Risk Assessment: Do you want to hurt yourself or someone else? Patient reports no desire to harm self or others. Onset of symptoms was March 19, 2023. 19:17 Method Of Arrival: Wheelchair ha1 19:17 Acuity: CHENTE 3 ha1 Triage Assessment: 19:21 General: Appears ill, Behavior is calm, cooperative. Pain: Denies pain. Neuro: Level of ha1 Consciousness is awake, alert, obeys commands, Oriented to person, place, time, situation. Cardiovascular: Patient's skin is warm and dry. Respiratory: Airway is patent Respiratory effort is even, unlabored, Respiratory pattern is regular, symmetrical. GI: No signs and/or symptoms were reported involving the gastrointestinal system. Derm: Skin is pink, warm \T\ dry. Historical: - Allergies: 19:21 No Known Allergies; ha1 - Home Meds: 19:21 lisinopril 20 mg Oral tab 1 tab once daily [Active]; ha1 - PMHx: 19:21 Alcoholism; Anxiety; chronic back pain; Hypertension; ha1 - Immunization history:: Adult Immunizations unknown. - Social history:: Smoking status: Patient reports the use of cigarette tobacco products, denies chronic smoking, but will smoke occasionally. Screenin:54 [facility] ED Fall Risk Assessment (Adult) History of falling in the last 3 months, as6 including since admission Yes- physiologic fall (2 pts) Confusion or Disorientation No (0 pts) Intoxicated or Sedated No (0 pts) Impaired Gait Yes (1 pt) Mobility Assist Device Used No (0 pt) Altered Elimination No (0 pt) Score/Fall Risk Level 3 or more points = High Risk Oriented to surroundings, Maintained a safe environment, Educated pt \T\ family on fall prevention, incl call for assistance when getting out of bed, Assessed \T\ reinforced patient's understanding of fall precautions, Hourly rounding (assess needs \T\ fall precautionary measures) done, Used ambulatory aids as needed (educated on \T\ assisted with), Remained with patient while ambulating, Utilized family, sitter, or virtual photoengraving apprentice as indicated. Abuse screen: Denies threats or abuse. Denies injuries from another. Nutritional screening: No deficits noted. Tuberculosis screening: No symptoms or risk factors identified. Assessment: 19:52 General: Appears uncomfortable, ill, Behavior is calm, cooperative, drowsy, quiet. as6 General: Reports feeling ill for fatigue for. Pain: Complains of pain in generalized. Neuro: Level of Consciousness is awake, alert, obeys commands, Oriented to person, place, time, situation. Cardiovascular: Capillary refill < 3 seconds JVD is absent Patient's skin is warm and dry. Respiratory: Respiratory effort is even, unlabored, Respiratory pattern is regular, symmetrical. GI: Reports loss of appetite. : No deficits noted. No signs and/or symptoms were reported regarding the genitourinary system. EENT: No deficits noted. No signs and/or symptoms were reported regarding the EENT system. Derm: Skin is intact, is healthy with good turgor. 20:41 Reassessment: No changes from previously documented assessment. Patient and/or family as6 updated on plan of care and expected duration. Pain level reassessed. Patient is alert, oriented x 3, equal unlabored respirations, skin warm/dry/pink. 21:38 Reassessment: Patient appears in no apparent distress at this time. Patient and/or as6 family updated on plan of care and expected duration. Pain level reassessed. Vital Signs: 19:17 BP 112 / 79; Pulse 95; Resp 18 S; Temp 98.2; Pulse Ox 94% on R/A; Weight 86.18 kg; ha1 Height 5 ft. 9 in. ; 19:55 BP 123 / 96; Pulse 77; Resp 18 S; Pulse Ox 95% on R/A; as6 20:41 BP 130 / 91; Pulse 85; Resp 17 S; Pulse Ox 95% on R/A; as6 21:38 BP 130 / 91; Pulse 83; Resp 14 S; Pulse Ox 96% on R/A; as6 23:02 Pulse 76; Resp 14 S; Pulse Ox 95% on R/A; as6 23:46 BP 116 / 82; Pulse 91; Resp 16 S; Pulse Ox 97% on R/A; as6 19:17 Body Mass Index 28.06 (86.18 kg, 175.26 cm) ha1 ED Course: 19:00 Patient arrived in ED. im 19:03 Lizzie Henriquez FNP-C is PHCP. kb 19:03 Sean Cerrato MD is Attending Physician. kb 19:21 Triage completed. ha1 19:42 Arm band placed on. as6 19:50 Inserted saline lock: 20 gauge in right antecubital area, using aseptic technique. jj7 19:55 Bed in low position. Call light in reach. Side rails up X2. Adult w/ patient. Client as6 placed on continuous cardiac and pulse oximetry monitoring. NIBP monitoring applied. 20:00 Acetaminophen Sent. jj7 20:00 Basic Metabolic Panel Sent. jj7 20:00 CBC with Diff Sent. jj7 20:00 ETOH Level Sent. jj7 20:00 Hepatic Function Sent. jj7 20:00 PT-INR Sent. jj7 20:00 Ptt, Activated Sent. jj7 20:00 Salicylate Sent. jj7 20:17 Maximino Engle, RN is Primary Nurse. as6 20:24 Urinalysis w/ reflexes Sent. as6 20:24 Urine Drug Screen Sent. as6 21:39 PO fluids given. as6 23:35 Mello Schwartz MD is Hospitalizing Provider. kb 23:47 Provided Education on: need for admit. as6 23:47 No provider procedures requiring assistance completed. Patient admitted, IV remains in as6 place. Administered Medications: 19:52 Drug: NS 0.9% IV 1000 ml IV at 1000 ml once Route: IV; Rate: 1000 ml; Site: right as6 antecubital; 23:47 Follow up: Response: No adverse reaction; IV Status: Completed infusion; IV Intake: as6 1000ml 21:35 Drug: Banana Bag - (Multivitamin IV 1 amp, NS 0.9% IV 1000 ml, Thiamine IV 100 mg, as6 foLIC Acid IVPB 1 mg) IV at calculated rate once Route: IV; Rate: calculated rate; Site: right antecubital; 03/20 00:37 Follow up: Response: No adverse reaction; IV Status: Completed infusion; IV Intake: as6 1000ml Medication: 03/19 19:54 VIS not applicable for this client. as6 Intake: 23:47 IV: 1000ml; Total: 1000ml. as6 11 00:37 IV: 1000ml; Total: 2000ml. as6 Outcome: 03/19 23:35 Decision to Hospitalize by Provider. kb 23:47 Condition: stable as6 23:47 Instructed on the need for admit, 03/20 00:37 Admitted to ER Hold. [facility] documentation. as6 11:28 Patient left the ED. rs5 Signatures: Lizzie Henriquez, SHERITA-C MALLET CUTTER-Maximino Dorsey RN RN as6 Gaviota Ellis, RN RN ha1 Khadra Sanabria RN RN jjAntonio Akhtar RN RN rs5 Antoinette Lara
--- NOTE | 2023-03-19 23:35 | EDPHYS ---
Physician Documentation [facility] Name: Abiodun Lara Age: 43 yrs Sex: Male : 1980 Arrival Date: 03/19/2023 Time: 18:58 Bed 6 Private MD: ED Physician Sean Cerrato HPI: 03/19 23:42 This 43 yrs old Male presents to ER via Wheelchair with complaints of General kb Weakness. 23:42 Patient is a 43-year-old male with a history of alcoholism and hypertension who kb presents for generalized weakness that started 1 week ago. Mother states patient has been sleeping all day and all night for the last week, has not been eating or drinking water. States he has become more more weak as the week is gone by and cannot stand on his own.. Historical: - Allergies: 19:21 No Known Allergies; ha1 - Home Meds: 19:21 lisinopril 20 mg Oral tab 1 tab once daily [Active]; ha1 - PMHx: 19:21 Alcoholism; Anxiety; chronic back pain; Hypertension; ha1 - Immunization history:: Adult Immunizations unknown. - Social history:: Smoking status: Patient reports the use of cigarette tobacco products, denies chronic smoking, but will smoke occasionally. ROS: 23:42 Constitutional: Negative for fever, chills, and weight loss, kb 23:42 Constitutional: Positive for poor PO intake, 23:42 Neuro: Positive for weakness, 23:42 All other systems are negative, Exam: 22:08 Constitutional: This is a well developed, well nourished patient who is awake, alert, kb and in no acute distress. Head/Face: Normocephalic, atraumatic. ENT: Moist Mucous membranes Cardiovascular: Regular rate Respiratory: Respirations even and unlabored. No increased work of breathing. Talking in full sentences Abdomen/GI: Soft, non-tender. No distention Skin: Warm, dry with normal turgor. Normal color. MS/ Extremity: Pulses equal, no cyanosis. Neurovascular intact. Neuro: Awake and alert, GCS 15, oriented to person, place, time, and situation. 22:08 ECG was reviewed by the Attending Physician. 22:08 Neuro: Motor: generalized weakness, Vital Signs: 19:17 BP 112 / 79; Pulse 95; Resp 18 S; Temp 98.2; Pulse Ox 94% on R/A; Weight 86.18 kg; ha1 Height 5 ft. 9 in. ; 19:55 BP 123 / 96; Pulse 77; Resp 18 S; Pulse Ox 95% on R/A; as6 20:41 BP 130 / 91; Pulse 85; Resp 17 S; Pulse Ox 95% on R/A; as6 21:38 BP 130 / 91; Pulse 83; Resp 14 S; Pulse Ox 96% on R/A; as6 23:02 Pulse 76; Resp 14 S; Pulse Ox 95% on R/A; as6 23:46 BP 116 / 82; Pulse 91; Resp 16 S; Pulse Ox 97% on R/A; as6 19:17 Body Mass Index 28.06 (86.18 kg, 175.26 cm) ha1 MDM: 19:04 Patient medically screened. kb 23:42 Data reviewed: vital signs, nurses notes. kb 23:43 Differential diagnosis: cardiac arrhythmia, CVA, generalized weakness, hypovolemia, kb Intoxication. Consideration of Admission/Observation Patient was admitted/placed on observation. Escalation of care including admission/observation considered. Management of patient was discussed with the following: Hospitalist: Discussed with Dr. Schwartz who accepts patient for admission. Dr. Zee recommends admission. Historians other than the Patient: Parent: Mother. Counseling: I had a detailed discussion with the patient and/or guardian regarding the historical points, exam findings, and any diagnostic results supporting the discharge/admit diagnosis, lab results, the need for further work-up and treatment in the hospital. 03/19 19:23 Order name: Acetaminophen; Complete Time: 20:27 kb 03/19 19:23 Order name: Basic Metabolic Panel; Complete Time: 20:27 kb 03/19 19:23 Order name: CBC with Diff; Complete Time: 22:05 kb 03/19 19:23 Order name: ETOH Level; Complete Time: 21:04 kb 03/19 19:23 Order name: Hepatic Function; Complete Time: 20:27 kb 03/19 19:23 Order name: PT-INR; Complete Time: 21:04 kb 03/19 19:23 Order name: Ptt, Activated; Complete Time: 21:04 kb 03/19 19:23 Order name: Salicylate; Complete Time: 20:44 kb 03/19 19:23 Order name: Urinalysis w/ reflexes; Complete Time: 20:41 kb 03/19 19:23 Order name: Urine Drug Screen; Complete Time: 21:15 kb 03/19 23:56 Order name: CBC with Automated Diff EDMS 03/19 23:56 Order name: CBC with Automated Diff EDMS 03/19 23:56 Order name: Comprehensive Metabolic Panel EDMS 03/19 23:56 Order name: Comprehensive Metabolic Panel EDMS 03/19 19:23 Order name: EKG; Complete Time: 19:24 kb 03/19 19:23 Order name: EKG - Nurse/Tech; Complete Time: 19:52 kb 03/19 19:23 Order name: IV Saline Lock; Complete Time: 19:52 kb 03/19 19:23 Order name: Labs collected and sent; Complete Time: 19:59 kb 03/19 19:23 Order name: Suicide Screening ([place]); Complete Time: 19:52 kb 03/19 20:08 Order name: Labs - recollect needed: blue top; Complete Time: 20:38 bc6 EC:08 Rate is 71 beats/min. Rhythm is regular. QRS [place] is Normal. OK interval is normal at kb 140 msec. QRS interval is normal at 120 msec. QT interval is normal at 432 msec. Administered Medications: 19:52 Drug: NS 0.9% IV 1000 ml IV at 1000 ml once Route: IV; Rate: 1000 ml; Site: right [address] [place], [place] [id number]; 23:47 Follow up: Response: No adverse reaction; IV Status: Completed infusion; IV Intake: as6 1000ml 21:35 Drug: Banana Bag - (Multivitamin IV 1 amp, NS 0.9% IV 1000 ml, Thiamine IV 100 mg, as6 foLIC Acid IVPB 1 mg) IV at calculated rate once Route: IV; Rate: calculated rate; Site: right antecubital; 03/20 00:37 Follow up: Response: No adverse reaction; IV Status: Completed infusion; IV Intake: as6 1000ml Disposition Summary: 03/19/23 23:35 Hospitalization Ordered Notes: Hospitalization Status: Observation kb Provider: Mello Schwartz Condition: Stable kb Problem: new kb Symptoms: are unchanged kb Bed/Room Type: Standard kb Location: [facility] HOLD(03/20/23 00:40) eb1 Room Assignment: ERHOLD-(11/02/23 00:40) eb1 Diagnosis - Weakness kb - Alcohol abuse with intoxication, uncomplicated kb Forms: - Medication Reconciliation Form kb - SBAR form kb - Leadership Thank You Letter kb Addendum: 03/24/2023 10:12 I was immediately available for consultation during this patient's visit. I did not e c2 personally see the patient or guide the patient's care. . Signatures: Dispatcher [employer] EDLizzie Thompson, MICROFILM CAMERA OPERATOR-C MICROFILM CAMERA OPERATOR-Daysi Maria RN RN eb1 Maximino Engle RN RN as6 Gaviota Ellis RN RN ha1 Joslyn Tan 6 Sean Cerrato MD MD ec2 Corrections: (The following items were deleted from the chart) 03/20 00:40 03/19 23:35 Telemetry/MedSurg (observation) gertrude eb1 03/20 00:40 03/19 23:35 gertrude eb1
[2023-03-19] MEDS: NA CHLORIDE 0.9% 1,000 ML IV SCH (23:45)
[2023-03-19] MEDS ORDERED: ONDANSETRON 4 MG/2 ML VIAL IV PRN (23:50)
--- NOTE | 2023-03-19 23:57 | P.HP ---
Certification for Inpatient Patient admitted to: Observation With expected LOS: <2 Midnights Patient will require the following post-hospital care: None Practitioner: I am a practitioner with admitting privileges, knowledge of patient current condition, hospital course, and medical plan of care. Services: Services provided to patient in accordance with Admission requirements found in Title 42 Section 412.3 of the Code of Federal Regulations Patient History Date of Service: 03/20/23 Reason for admission: Generalized weakness History of Present Illness: 43 yo Male with past medical history of hypertension, alcoholism, brought to ER with generalized weakness and confusion and nausea but no vomiting Patient is a poor historian hence most of the history is obtained from the chart review and also talking to the ER physician. Patient was seen in the ER and was found to have elevated blood alcohol level and has been admitted for further management. Patient denies any hallucinations or delusions. Last drink was this night .Denies any headache or seizure-like activities No vomiting or diarrhea Denies any chest pain or shortness of breath Allergies No Known Allergies Allergy (Unverified 12/14/21 08:20) Home medications list reviewed: Yes Home Medications: Buproprion S.r. [Wellbutrin Sr*] 150 mg PO DAILY 90 Days #90 tab 04/26/22 Losartan Potassium [Cozaar*] 50 mg PO BID #60 tablet 03/09/23 Metoprolol Tartrate [Lopressor] 50 mg PO BID #60 tab 03/09/23 chlordiazePOXIDE HCl [Chlordiazepoxide HCl] 10 mg PO Q8H #70 cap 03/09/23 levETIRAcetam [Keppra Tab] 500 mg PO BID #60 tab 03/09/23 - Past Medical/Surgical History Has patient received pneumonia vaccine in the past: No Past Medical History: Reviewed- Non-Contributory -: Alcohol abuse -: Hypertension Past Surgical History: Reviewed- Non-Contributory - Family History Family History: Reviewed- Non-Contributory - Social History Alcohol use: Yes CD- Drugs: Yes Review of Systems 10-point ROS is otherwise unremarkable General: Weakness Eyes: Unremarkable ENT: Unremarkable Respiratory: Unremarkable Gastrointestinal: Nausea Genitourinary: Unremarkable Musculoskeletal: Unremarkable Integumentary: Unremarkable Neurological: Unremarkable Physical Examination - Vital Signs Temperature: 98.9 F Blood Pressure: 138/78 Pulse: 98 Respirations: 18 Pulse Ox (%): 98 - Physical Exam General: Alert, In no apparent distress, Oriented x2, Confused HEENT: Atraumatic, Normocephalic Neck: Supple, 2+ carotid pulse no bruit Respiratory: Clear to auscultation bilaterally, Normal air movement Cardiovascular: No edema, Regular rate/rhythm, Normal S1 S2 Capillary refill: <2 Seconds Gastrointestinal: Soft and benign, W/out hepatosplenomegaly Musculoskeletal: No clubbing, No swelling Neurological: Normal gait, Normal speech, Normal strength at 5/5 x4 extr, Cranial nerves 3-12 intact Lymphatics: No axilla or inguinal lymphadenopathy - Studies Laboratory Data (last 24 hrs) 03/19/23 03/19/23 03/19/23 20:31 19:55 19:55 WBC 7.50 Hgb 16.7 Hct 48.1 Plt Count 176 PT 9.9 INR 0.90 APTT 29.5 Sodium 140 Potassium 3.5 BUN 5 L Creatinine 0.68 L Glucose 114 H Total Bilirubin 0.4 AST 81 H ALT 127 H Alkaline Phosphatase 75 Assessment and Plan - Problems (Diagnosis) (1) Alcohol abuse Current Visit: No Status: Acute Plan: Monitor closely IV alcohol level noted IV hydration Monitor closely under telemetry Watch closely for delirium tremens We will discuss with the patient regarding alcohol cessation once he is more awake alert (2) Elevated liver enzymes Current Visit: No Status: Acute Plan: Possibly due to alcohol history We will get an ultrasound of the abdomen Monitor closely We will repeat LFTs in the morning (3) Polysubstance abuse Current Visit: No Status: Chronic Plan: History of alcohol abuse and cannabis Advised cessation (4) Hypertension Current Visit: Yes Status: Chronic Plan: Continue lisinopril Monitor renal parameters Titrate antihypertensives Hydralazine as needed Discharge Plan: Home Plan to discharge in: 24 Hours - Advance Directives Does patient have a Living Will: No Does patient have a Durable POA for Healthcare: No - Code Status/Comfort Care Code Status: Full Code Time Spent Managing Pts Care (In Minutes): 47
[2023-03-20 00:46] VITALS: BMI 28.0
[2023-03-20] MEDS: chlordiazePOXIDE HCl 5 MG CAP PO SCH ×2 (01:00→08:02)
[2023-03-20] MEDS: ACETAMINOPHEN 500 MG TAB PO PRN ×2 (01:02→08:51)
[2023-03-20] MEDS ORDERED: ACETAMINOPHEN 500 MG TAB ONE ×2 (01:03→09:03)
[2023-03-20] MEDS ORDERED: chlordiazePOXIDE HCl 5 MG CAP PO ONE ×2 (01:03→08:03)
[2023-03-20] MEDS ORDERED: NA CHLORIDE 0.9% 1,000 ML ONE ×2 (01:04→08:04)
[2023-03-20] MEDS: MORPHINE 2 MG/ML SYR IV PRN ×2 (01:53→08:02)
[2023-03-20] MEDS ORDERED: MORPHINE 2 MG/ML SYR ONE (02:04)
[2023-03-20 04:43] LABS: Absolute Lymphocytes (CBC) 3.6 K/uL (0.7-4.9); Hematocrit 43.2 % (39.6-49.0); Lymphocytes % 51.9 % (15.3-44.8); MCV 97.8 fL (80-100); MPV 8.6 fL (7.6-11.3); Platelets 155 thou/uL (152-406); RBC Red Blood Cell Count 4.41 M/uL (4.33-5.43)
[2023-03-20 04:53] LABS: Albumin 3.4 g/dL (3.4-5.0); Bilirubin Total 0.5 mg/dL (0.2-1.0); Protein, Total 6.8 g/dL (6.4-8.2)
[2023-03-20 05:02] LABS: Potassium 3.8 mEq/L (3.5-5.1)
[2023-03-20] MEDS ORDERED: INFLUENZA VACCINE (for 6+ mo) 0.5 ML DOSE IMVAC ONE (08:00)
[2023-03-20] MEDS: NA CHLORIDE 0.9% 1,000 ML IV SCH (08:01)
[2023-03-20] MEDS ORDERED: LOSARTAN POTASSIUM 50 MG TABLET ONE (08:02)
[2023-03-20] MEDS ORDERED: METOPROLOL TAR 50 MG TAB ONE (08:02)
[2023-03-20] MEDS ORDERED: MULTIVITAMIN TAB PO ONE (08:03)
[2023-03-20] MEDS ORDERED: levETIRAcetam 500 MG TAB ONE (08:04)
[2023-03-20] MEDS ORDERED: FOLIC ACID 1 MG TABLET ONE (08:04)
[2023-03-20] MEDS ORDERED: THIAMINE HCL 100 MG TABLET ONE (08:04)
[2023-03-20] MEDS ORDERED: MORPHINE 4 MG/ML SYR ONE (08:04)
[2023-03-20] MEDS ORDERED: levETIRAcetam 500 MG TAB PO SCH (09:00)
[2023-03-20] MEDS ORDERED: BUPROPRION HCL S.R. 150MG TAB PO SCH (09:00)
[2023-03-20] MEDS ORDERED: FOLIC ACID 1 MG TABLET PO SCH (09:00)
[2023-03-20] MEDS ORDERED: THIAMINE HCL 100 MG TABLET PO SCH (09:00)
[2023-03-20] MEDS ORDERED: LOSARTAN POTASSIUM 50 MG TABLET PO SCH (09:00)
[2023-03-20] MEDS ORDERED: MULTIVITAMIN TAB PO SCH (09:00)
[2023-03-20] MEDS ORDERED: METOPROLOL TAR 50 MG TAB PO SCH (09:00)
--- NOTE | 2023-03-20 09:47 | EKG ---
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
--- NOTE | 2023-03-20 10:06 | P.PN ---
Subjective Date of Service: 03/20/23 Chief Complaint: Generalized weakness Subjective: Doing well HPI 03/19: Abiodun Lara is 43 yo Male with past medical history of hypertension, alcoholism, brought to ER with generalized weakness and confusion and nausea but no vomiting Patient is a poor historian hence most of the history is obtained from the chart review and also talking to the ER physician. Patient was seen in the ER and was found to have elevated blood alcohol level and has been admitted for further management. Patient denies any hallucinations or delusions. Last drink was this night .Denies any headache or seizure-like activities No vomiting or diarrhea. 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 Alcohol level 485, currently anxious but cooperative. On scheduled librium, educated the need for alcohol cessation and offering information for group addiction groups. Abiodun explained he is depressed about his break up with his ex last year and not being able to work. Will continue to monitor for withdrawl symtpoms. He is c/o dizziness and feeling like he had a seizure at home which is why he was brought to the ED. This morning he denies fever, chills, SOB, CP, and N/V/D. <Vandana Jiang - Last Filed: 03/20/23 10:18> Date of Service: 03/20/23 <vicki blevins - Last Filed: 03/20/23 16:39> Review of Systems General: Weakness Eyes: Unremarkable ENT: Unremarkable Respiratory: Unremarkable Cardiovascular: Light Headedness Gastrointestinal: Unremarkable Genitourinary: Unremarkable Musculoskeletal: Unremarkable Integumentary: Unremarkable Neurological: Unremarkable Lymphatics: Unremarkable <Vandana Jiang - Last Filed: 03/20/23 10:18> Physical Examination - Vital Signs Temperature: 98.0 F Blood Pressure: 132/95 Pulse: 80 Respirations: 17 Pulse Ox (%): 99 - Studies Laboratory Data (last 24 hrs) 03/19/23 03/19/23 03/19/23 20:31 19:55 19:55 WBC 7.50 Hgb 16.7 Hct 48.1 Plt Count 176 PT 9.9 INR 0.90 APTT 29.5 Sodium 140 Potassium 3.5 BUN 5 L Creatinine 0.68 L Glucose 114 H Total Bilirubin 0.4 AST 81 H ALT 127 H Alkaline Phosphatase 75 <Vandana Jiang - Last Filed: 03/20/23 10:18> - Studies Laboratory Data (last 24 hrs) 03/19/23 03/19/23 03/19/23 20:31 19:55 19:55 WBC 7.50 Hgb 16.7 Hct 48.1 Plt Count 176 PT 9.9 INR 0.90 APTT 29.5 Sodium 140 Potassium 3.5 BUN 5 L Creatinine 0.68 L Glucose 114 H Total Bilirubin 0.4 AST 81 H ALT 127 H Alkaline Phosphatase 75 <vicki blevins - Last Filed: 03/20/23 16:39> Assessment And Plan - Plan Physical Exam General: Alert, In no apparent distress, Oriented x3 HEENT: Atraumatic, Normocephalic Neck: Supple, 2+ carotid pulse no bruit Respiratory: Clear to auscultation bilaterally, Normal air movement Cardiovascular: No edema, Regular rate/rhythm, Normal S1 S2 Capillary refill: <2 Seconds Gastrointestinal: Soft and benign, W/out hepatosplenomegaly Musculoskeletal: No clubbing, No swelling Neurological: Normal gait, Normal speech, Normal strength at 5/5 x4 extr, Cranial nerves 3-12 intact Lymphatics: No axilla or inguinal lymphadenopathy Psychiatric: cooperative, depressed, anxious Problems (Diagnosis) (1) Alcohol abuse Current Visit: No Status: Acute Plan: Monitor closely IV alcohol level 485 IV hydration librium scheduled folic acid, thiamine, and multivitamin daily Monitor closely under telemetry Watch closely for delirium tremens We will discuss with the patient regarding alcohol cessation once he is more awake alert (2) Elevated liver enzymes Current Visit: No Status: Acute Plan: Possibly due to alcohol history We will get an ultrasound of the abdomen Monitor closely We will repeat LFTs in the morning (3) Polysubstance abuse Current Visit: No Status: Chronic Plan: History of alcohol abuse and cannabis Advised cessation (4) Hypertension Current Visit: Yes Status: Chronic Plan: Continue lisinopril Monitor renal parameters Titrate antihypertensives Hydralazine as needed Discharge Plan: Home Plan to discharge in: 24 Hours Discharge Plan: Home Plan to discharge in: 24 Hours Time Spent Managing PTS Care (In Minutes): 35 <Vandana Jiang - Last Filed: 03/20/23 10:18> - Plan Patient seen and examined. He is alert and oriented x4. He has been ambulatory and tolerating diet. Had a lengthy discussion with him regarding alcohol cessation. Patient stated he went through alcohol rehab about 8 months ago-private pay, he was able to abstain for only 2 months and began drinking again. He reports seizure 1 week ago and feels he might have had a seizure last night. He states that he fell from the couch to the floor. Case discussed with neurology Dr. Momin who recommended antiseizure medication-Keppra due to high risk of epilepsy with multiple alcohol-related seizures. Patient agreed to take Keppra. I also discussed with him the plan of care for this hospital stay which includes providing benzodiazepines for alcohol withdrawal and he may spend about 3 to 5 days inpatient to go through the alcohol withdrawal. Patient declined to stay for alcohol withdrawal treatment. He accepted prescription for Keppra and requested for discharge <vicki blevins - Last Filed: 03/20/23 16:39>
--- NOTE | 2023-03-20 11:33 | P.DS ---
Admission Date: 03/20/23 Discharge Date: 03/20/23 Reason for Admission: Generalized weakness Hospital Course: Abiodun Lara is a pleasant 43 year old male with a past medical history significant for hypertension, alcoholism, substance abuse, generalized weakness and confusion who was admitted to the [facility] on 03/19 for Alcohol intoxication. Abiodun presented to the ED d/t weakness at home. 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 Abiodun lives with his mother who had him brought to the ED last night. On 03/20, Abiodun was seen on morning rounds and deemed medically stable for discharge. Abiodun was discharged with instructions to schedule follow-up appointments with PCP. Abiodun was provided prescriptions for Folic acid, thiamine, multivitamin, and keppra. The patient was given the opportunity to ask questions and reported no further questions. Furthermore, all questions were answered to the best of my ability. A copy of this discharge summary will be sent to the above providers to facilitate continuity of care. Today, I personally spent 55 minutes with Abiodun, of which greater than 50% of the time was spent in patient education, counseling, and coordination of care as described above. <Vandana Jiang - Last Filed: 03/20/23 11:47> Admission Date: 03/20/23 Discharge Date: 03/20/23 - Problems (1) Alcohol abuse Status: Acute (2) Elevated liver enzymes Status: Acute (3) Seizure Status: Acute (4) Hypertension Status: Chronic Hospital Course: Patient seen and examined. He is alert and oriented x4. He has been ambulatory and tolerating diet. I had a lengthy discussion with him regarding alcohol cessation. Patient stated he went through alcohol rehab about 8 months ago-private pay, he was able to abstain for only 2 months and began drinking again. He reports seizure 1 week ago and feels he might have had a seizure last night. He states that he fell from the couch to the floor. Case discussed with neurology Dr. Momin who recommended antiseizure medication-Keppra due to high risk of epilepsy with multiple alcohol-related seizures. Patient agreed to take Keppra. I also discussed with him the plan of care for this hospital stay which includes providing benzodiazepines for alcohol withdrawal and he may spend about 3 to 5 days inpatient to go through the alcohol withdrawal. Patient declined to stay for alcohol withdrawal treatment. He accepted prescription for Keppra and requested for discharge. Patient with stable vitals. He is discharged according to his request. <vicki blevins - Last Filed: 03/20/23 16:46> Disposition: ROUTINE DISCHARGE Discharge Condition: FAIR Vital Signs/Physical Exam: Temp Pulse Resp BP Pulse Ox 98.0 F 80 17 132/95 H 99 03/20/23 10:18 03/20/23 10:18 03/20/23 10:18 03/20/23 10:18 03/20/23 10:18 Laboratory Data at Discharge: WBC 7.00 thou/uL (4.3-10.9) 03/20/23 04:18 Hgb 14.9 g/dL (13.6-17.9) D 03/20/23 04:18 Hct 43.2 % (39.6-49.0) 03/20/23 04:18 Plt Count 155 thou/uL (152-406) 03/20/23 04:18 PT 9.9 SECONDS (9.5-12.5) 03/19/23 20:31 INR 0.90 03/19/23 20:31 APTT 29.5 SECONDS (24.3-36.9) 03/19/23 20:31 Sodium 142 mEq/L (136-145) 03/20/23 04:18 Potassium 3.8 mEq/L (3.5-5.1) 03/20/23 04:18 BUN 6 mg/dL (7-18) L 03/20/23 04:18 Creatinine 0.62 mg/dL (0.70-1.30) L 03/20/23 04:18 Glucose 85 mg/dL (74-106) 03/20/23 04:18 Total Bilirubin 0.5 mg/dL (0.2-1.0) 03/20/23 04:18 AST 81 U/L (15-37) H 03/20/23 04:18 ALT 112 U/L (16-61) H 03/20/23 04:18 Alkaline Phosphatase 57 U/L (45-117) D 03/20/23 04:18 <Vandana Jiang - Last Filed: 03/20/23 11:47> Vital Signs/Physical Exam: Temp Pulse Resp BP Pulse Ox 98.2 F 91 H 16 116/82 99 03/20/23 11:50 03/20/23 11:59 03/20/23 11:59 03/20/23 11:59 03/20/23 10:18 Laboratory Data at Discharge: WBC 7.00 thou/uL (4.3-10.9) 03/20/23 04:18 Hgb 14.9 g/dL (13.6-17.9) D 03/20/23 04:18 Hct 43.2 % (39.6-49.0) 03/20/23 04:18 Plt Count 155 thou/uL (152-406) 03/20/23 04:18 PT 9.9 SECONDS (9.5-12.5) 03/19/23 20:31 INR 0.90 03/19/23 20:31 APTT 29.5 SECONDS (24.3-36.9) 03/19/23 20:31 Sodium 142 mEq/L (136-145) 03/20/23 04:18 Potassium 3.8 mEq/L (3.5-5.1) 03/20/23 04:18 BUN 6 mg/dL (7-18) L 03/20/23 04:18 Creatinine 0.62 mg/dL (0.70-1.30) L 03/20/23 04:18 Glucose 85 mg/dL (74-106) 03/20/23 04:18 Total Bilirubin 0.5 mg/dL (0.2-1.0) 03/20/23 04:18 AST 81 U/L (15-37) H 03/20/23 04:18 ALT 112 U/L (16-61) H 03/20/23 04:18 Alkaline Phosphatase 57 U/L (45-117) D 03/20/23 04:18 <vicki blevins - Last Filed: 03/20/23 16:46> Diet: AHA Activity: Fall precautions Time spent managing pt's care (in minutes): 55 <Vandana Jiang - Last Filed: 03/20/23 11:47> <vicki blevins - Last Filed: 03/20/23 16:46> Home Medications: Atorvastatin Calcium [Lipitor] 1 tab PO DAILY 03/20/23 Folic Acid 1 mg PO DAILY #30 tab 03/20/23 Multivit,Ther Iron,Ca,FA & Min [Centrum Tablet*] 1 tab PO DAILY #30 tab 03/20/23 Thiamine HCl [Vitamin B-1*] 100 mg PO DAILY #30 tab 03/20/23 levETIRAcetam [Keppra*] 500 mg PO BID #60 tab 03/20/23 New Medications: Multivit,Ther Iron,Ca,FA & Min [Centrum Tablet*] 1 tab PO DAILY #30 tab Folic Acid 1 mg PO DAILY #30 tab levETIRAcetam [Keppra*] 500 mg PO BID #60 tab Thiamine HCl [Vitamin B-1*] 100 mg PO DAILY #30 tab Physician Discharge Instructions: 1. follow up with PCP in 3-5 days 2. join a support group for further alcohol cessation 3. hydrate well, drink lots of water New medications: folic acid Thiamine Multivitamin Keppra Followup: TOR LENTZ [Primary Care Provider] - 1-2 Weeks
[2023-03-20 12:28] VITALS: BP 116/82; TEMP 98.2; O2SAT 97
== END 2023-03-20 11:30 | disposition home or self-care (01) ==
LOC: ER 18:58 → ERHOLD 03-20 00:06
PROVIDERS: ADMIT Family Medicine; ATTEND Internal Medicine
DX: F10.20 Alcohol dependence, uncomplicated (principal); F12.10 Cannabis abuse, uncomplicated; R79.89 Other specified abnormal findings of blood chemistry; F41.9 Anxiety disorder, unspecified; F17.210 Nicotine dependence, cigarettes, uncomplicated; I10 Essential (primary) hypertension; R11.0 Nausea; R41.0 Disorientation, unspecified; Z23 Encounter for immunization; Y90.8 Blood alcohol level of 240 mg/100 ml or more
CPT/HCPCS: 96365; 96361; 93005; 85025 ×2; 80048; 36415; 85610; 80076; 85730; 81003; 80053; 80307; 99285; 96366; 80143; 80179; 82077; J3411; J2270; J7030 ×4; G0378 ×2

== ENCOUNTER 2024-01-22 10:25 | Emergency (ER) | payer OTHER, SELFPAY ==
[2024-01-22] MEDS ORDERED: MORPHINE 4 MG/ML SYR ONE (10:41)
[2024-01-22] MEDS ORDERED: ONDANSETRON 4 MG/2 ML VIAL ONE (10:41)
[2024-01-22] MEDS ORDERED: NA CHLORIDE 0.9% 1,000 ML ONE (10:41)
[2024-01-22 10:44] LABS: Absolute Eosinophils 0.1 K/uL (0-0.5); Absolute Lymphocytes (CBC) 2.1 K/uL (0.7-4.9); Absolute Monocytes 0.3 K/uL (0.1-1.3); Absolute Neutrophil 2.8 K/uL (1.8-8.0); Basophils % 0.7 % (0-1.3); Eosinophils % 1.8 % (0-4.4); Hematocrit 39.8 % (39.6-49.0); Hemoglobin 13.4 g/dL (13.6-17.9); Lymphocytes % 39.3 % (15.3-44.8); MCH 33.5 pg (27.0-35.0); MCHC 33.7 g/dL (32.0-36.0); MCV 99.4 fL (80-100); MPV 8.5 fL (7.6-11.3); Monocytes % 6.4 % (3.3-12.3); Neutrophils % 51.8 % (41.7-73.7); Platelets 160 thou/uL (152-406); RBC Red Blood Cell Count 4.01 M/uL (4.33-5.43); Red Cell Distribution Width 13.3 % (12.1-15.2)
[2024-01-22 11:05] LABS: Albumin 3.8 g/dL (3.4-5.0); Anion Gap 13.3 mEq/L (5.0-15.0); Bilirubin Total 0.4 mg/dL (0.2-1.0); Globulin 3.8 g/dL (2.3-3.5); Potassium 3.3 mEq/L (3.5-5.1); Protein, Total 7.6 g/dL (6.4-8.2)
--- NOTE | 2024-01-22 11:35 | RAD REPORT ---
EXAM DESCRIPTION: CT - Abdomen Pelvis W Contrast - 01/22/2024 11:25 am CLINICAL HISTORY: Abdominal pain COMPARISON: 2020 TECHNIQUE: Computed axial tomography of the abdomen pelvis was obtained. 100 cc Isovue-300 was admin istered intravenously. Oral contrast was not requested which limits evaluation of bowel and appendix All CT scans are performed using dose optimization technique as appropriate and may include automated exposure control or mA/KV adjustment according to patient size. FINDINGS: Fatty liver Spleen, pancreas and adrenals are unremarkable. Multiple, small bilateral renal calculi. Mild bilateral hydronephrosis and hydroureter. A ureteral ca lculus is not seen. Bladder is distended. No evidence diverticulitis. Prostate gland mildly enlarged. Tiny umbilical hernia IMPRESSION: Multiple, small nonobstructing bilateral renal calculi Mild bilateral hydronephrosis and hydroureter may be sequela of bladder distention.
[2024-01-22 11:55] LABS: Specific Gravity 1.012 (1.005-1.030); Sqamous Epithelial None Seen /HPF (None Seen); Urine Bacteria None Seen /HPF (<20); Urine Bilirubin NEGATIVE (Negative); Urine Blood Negative (Negative); Urine Clarity Clear (Clear); Urine Color Colorless (Yellow); Urine Culture Reflex Order NOT NEEDED; Urine Glucose NEGATIVE (Negative); Urine Ketones NEGATIVE (Negative); Urine Microscopic Reflex YN ORDER UMIC; Urine Nitrite NEGATIVE (Negative); Urine Protein NEGATIVE (Negative); Urine RBC <5 /HPF (None Seen); Urine Urobilinogen Normal (Normal); Urine WBC <5 /HPF (<5)
[2024-01-22] MEDS ORDERED: KETOROLAC 30 MG/ML INJ ONE (11:56)
[2024-01-22 12:04] LABS: Barbiturates NEGATIVE (NEGATIVE); Benzodiazepines NEGATIVE (NEGATIVE); Cocaine NEGATIVE (NEGATIVE); METHAMPHETAM NEGATIVE (NEGATIVE); Methadone NEGATIVE (NEGATIVE); Opiates NEGATIVE (NEGATIVE); Phencyclidine NEGATIVE (NEGATIVE); THC Cannibis NEGATIVE (NEGATIVE)
--- NOTE | 2024-01-22 12:12 | ER ---
Nurse's Notes [facility] Name: Abiodun Lara Age: 44 yrs Sex: Male : 1980 Arrival Date: 01/22/2024 Time: 10:25 Bed 7 Private MD: Diagnosis: Alcohol intoxication, abdominal pain Presentation: 01/21 10:31 Chief complaint: Patient states: Pt arrived and required assistance from vehicle, was ph found slumped over and refusing to speak, SO reports that he was c/o abdominal pain, reports hx of alcoholic pancreatitis. Coronavirus screen: Vaccine status: Patient reports being unvaccinated. Ebola Screen: No symptoms or risks identified at this time. Initial Sepsis Screen: Does the patient meet any 2 criteria? No. Patient's initial sepsis screen is negative. Does the patient have a suspected source of infection? No. Patient's initial sepsis screen is negative. Risk Assessment: Do you want to hurt yourself or someone else? Patient reports no desire to harm self or others. Onset of symptoms was January 22, 2024. 10:31 Method Of Arrival: Wheelchair ph 10:31 Acuity: CHENTE 3 ph Triage Assessment: 10:34 General: Appears in no apparent distress. uncomfortable, Behavior is drowsy, quiet. ph Pain: Complains of pain in abdomen. GI: Abdomen is non-distended. Historical: - Allergies: 10:33 No Known Allergies; ph - Home Meds: 12:53 lisinopril 20 mg Oral tab 1 tab once daily [Active]; tl4 - PMHx: 10:33 Alcoholism; Anxiety; chronic back pain; Hypertension; Pancreatitis; ph - Immunization history:: Adult Immunizations unknown. - Infectious Disease History:: Denies. - Social history:: Smoking status: unknown Patient uses alcohol. Screenin:52 [facility] ED Fall Risk Assessment (Adult) History of falling in the last 3 months, ph including since admission No falls in past 3 months (0 pts) Confusion or Disorientation Yes (5 pts) Intoxicated or Sedated Yes (3 pts) Impaired Gait No (0 pts) Mobility Assist Device Used No (0 pt) Altered Elimination No (0 pt) Score/Fall Risk Level 3 or more points = High Risk Oriented to surroundings, Maintained a safe environment, Hourly rounding (assess needs \T\ fall precautionary measures) done. Abuse screen: Denies threats or abuse. Denies injuries from another. Nutritional screening: No deficits noted. Tuberculosis screening: No symptoms or risk factors identified. Assessment: 10:51 General: Appears in no apparent distress. uncomfortable, Behavior is quiet. Pain: ph Complains of pain in chest. Neuro: Level of Consciousness is awake, obeys commands, lethargic, Oriented to person, place. Cardiovascular: Capillary refill < 3 seconds in bilateral fingers Patient's skin is warm and dry. Respiratory: Airway is patent Respiratory effort is even, unlabored. GI: Bowel sounds present X 4 quads. Abd is soft X 4 quads Reports upper abdominal pain, nausea. Derm: Skin is pink, warm \T\ dry. Vital Signs: 10:31 BP 127 / 89; Pulse 100; Resp 18; Pulse Ox 98% on R/A; ph 10:53 Temp 97(TE); ph 11:54 BP 129 / 87; Pulse 86; Resp 18; Pulse Ox 100% on R/A; ph ED Course: 10:27 Patient arrived in ED. im 10:28 Misael Boland MD is Attending Physician. ms3 10:31 Jenn Ford, RN is Primary Nurse. ph 10:33 Triage completed. ph 10:34 Arm band placed on Patient placed in an exam room, on a stretcher, on pulse oximetry. ph 10:40 ETOH Level Sent. bc6 10:40 CBC with Diff Sent. bc6 10:40 CMP Sent. bc6 10:40 Lipase Sent. bc6 10:40 Initial lab(s) drawn, by tx, sent to lab. Inserted saline lock: 18 gauge in right bc6 forearm, using aseptic technique. Blood collected. Flushed with 10 mL NS. 10:53 Patient has correct armband on for positive identification. Bed in low position. Call ph light in reach. Side rails up X 1. 11:27 CT Abd/Pelvis - IV Contrast Only In Process Unspecified. EDMS 11:53 Urinalysis w/ reflexes Sent. ph 11:53 UDS Sent. ph 12:54 Provided Education on: call barrera. tl4 12:54 No provider procedures requiring assistance completed. IV discontinued, intact, tl4 bleeding controlled, No redness/swelling at site. Pressure dressing applied. Administered Medications: 10:50 Drug: NS 0.9% IV 1000 ml IV at 1 bolus Per protocol; 1000 mL bolus Route: IV; Rate: 1 ph bolus; Site: right antecubital; 12:00 Follow up: Response: No adverse reaction; IV Status: Completed infusion; IV Intake: ph 1000ml 10:51 Drug: Ondansetron IVP 4 mg IVP once; over 2 minutes Route: IVP; Site: right antecubital;ph 11:59 Follow up: Response: No adverse reaction ph 10:51 Drug: morphine IVP or IV 4 mg IVP once over 4 mins Route: IVP; Infused Over: 4 mins; ph Site: right antecubital; 11:59 Follow up: Response: No adverse reaction; Pain is unchanged, physician notified; RASS: ph Drowsy (-1) 11:59 Drug: Ketorolac IVP 15 mg IVP once Route: IVP; Site: right antecubital; ph 12:15 Follow up: Response: No adverse reaction ph Medication: 10:52 VIS not applicable for this client. ph Intake: 12:00 IV: 1000ml; Total: 1000ml. ph Outcome: 12:11 Discharge ordered by sp3 12:33 Discharged to home via wheelchair, with family, tl4 12:33 Condition: stable 12:33 Discharge instructions given to patient, family, Instructed on discharge instructions, follow up and referral plans. medication usage, Demonstrated understanding of instructions, follow-up care, medications, Prescriptions given X 1, 12:51 Patient left the ED. ph Signatures: Dispatcher [employer] Jenn Flores RN RN ph Wayne Aguirre DO DO ms3 Misael Boland MD MD sp3 Joslyn Tan 6 Antoinette Lara Toni, RN RN tl4 Corrections: (The following items were deleted from the chart) 11:25 11:11 In radiology for Abdomen Pelvis W Con+CT.RAD.BRZ. SHUBHAM JALLOH
--- NOTE | 2024-01-22 12:12 | EDPHYS ---
Physician Documentation [facility] Name: Abiodun Lara Age: 44 yrs Sex: Male : 1980 Arrival Date: 01/22/2024 Time: 10:25 Bed 7 Private MD: ED Physician Misael Boland HPI: 01/21 10:33 This 44 yrs old Male presents to ER via Unassigned with complaints of sp3 Abdominal Pain. 10:33 44-year-old male with history of alcoholism and prior pancreatitis now presents with sp3 epigastric pain for the last several hours. Last drink was earlier this morning. He also states he has high blood pressure but denies diabetes. Limited history and physical as patient was brought in by private vehicle and is not speaking much. I did discuss with patient's mom and significant other which yielded some additional history. Due to patient's cooperation, history, physical and ROS somewhat limited.. Historical: - Allergies: 10:33 No Known Allergies; ph - Home Meds: 12:53 lisinopril 20 mg Oral tab 1 tab once daily [Active]; tl4 - PMHx: 10:33 Alcoholism; Anxiety; chronic back pain; Hypertension; Pancreatitis; ph - Immunization history:: Adult Immunizations unknown. - Infectious Disease History:: Denies. - Social history:: Smoking status: unknown Patient uses alcohol. ROS: 10:34 Constitutional: Negative for fever, chills, and weight loss, Neck: Negative for injury, sp3 pain, and swelling, Cardiovascular: Negative for chest pain, palpitations, and edema, Respiratory: Negative for shortness of breath, cough, wheezing, and pleuritic chest pain, : Negative for injury, bleeding, discharge, and swelling, Skin: Negative for injury, rash, and discoloration, Neuro: Negative for headache, weakness, numbness, tingling, and seizure, Psych: Negative for depression, anxiety, suicide ideation, homicidal ideation, and hallucinations, Allergy/Immunology: Negative for hives, rash, and allergies, Endocrine: Negative for neck swelling, polydipsia, polyuria, polyphagia, and marked weight changes, 10:34 All other systems are negative, Exam: 10:34 Constitutional: This is a well developed, well nourished patient who is awake, alert, sp3 and in no acute distress. Head/Face: Normocephalic, atraumatic. Eyes: Pupils equal round and reactive to light, extra-ocular motions intact. Lids and lashes normal. Conjunctiva and sclera are non-icteric and not injected. Cornea within normal limits. Periorbital areas with no swelling, redness, or edema. Neck: Trachea midline, no thyromegaly or masses palpated, and no cervical lymphadenopathy. Supple, full range of motion without nuchal rigidity, or vertebral point tenderness. No Meningismus. Chest/axilla: Normal chest wall appearance and motion. Nontender with no deformity. No lesions are appreciated. Cardiovascular: Regular rate and rhythm with a normal S1 and S2. No gallops, murmurs, or rubs. Normal PMI, no JVD. No pulse deficits. Respiratory: Lungs have equal breath sounds bilaterally, clear to auscultation and percussion. No rales, rhonchi or wheezes noted. No increased work of breathing, no retractions or nasal flaring. Back: No spinal tenderness. No costovertebral tenderness. Full range of motion. Skin: Warm, dry with normal turgor. Normal color with no rashes, no lesions, and no evidence of cellulitis. MS/ Extremity: Pulses equal, no cyanosis. Neurovascular intact. Full, normal range of motion. Neuro: Awake and alert, GCS 15, oriented to person, place, time, and situation. Cranial nerves II-XII grossly intact. Motor strength 5/5 in all extremities. Sensory grossly intact. Cerebellar exam normal. Normal gait. Psych: Awake, alert, with orientation to person, place and time. Behavior, mood, and affect are within normal limits. 10:34 Abdomen/GI: Epigastric pain to palpation in the setting of obese abdomen. No peritoneal signs, rebound or guarding noted. Vital signs are normal except for borderline heart rate., Vital Signs: 10:31 BP 127 / 89; Pulse 100; Resp 18; Pulse Ox 98% on R/A; ph 10:53 Temp 97(TE); ph 11:54 BP 129 / 87; Pulse 86; Resp 18; Pulse Ox 100% on R/A; ph MDM: 10:31 Patient medically screened. sp3 10:35 Data reviewed: vital signs, nurses notes, old medical records, lab test result(s), sp3 radiologic studies. ED course: 44-year-old male with history of alcoholism now with abdominal pain. Differential diagnosis includes pancreatitis, other biliary pathology, gastritis, colitis, dehydration, functional abdominal pain, and to a lesser degree electrolyte imbalance and/or other vascular pathology. Clinically I am not highly suspicious for acute coronary syndrome, PE, shock, exsanguinating ulcer or viscus, or any other critical pathology. Workup will include CT scan of the abdomen pelvis, laboratory values, UA, IV hydration and general supportive care. Morphine and Zofran given.. 12:10 ED course: Alcohol level 371. CT scan of the abdomen pelvis negative except for sp3 punctate renal stones and mild bilateral hydro without ureterolithiasis or other visualized obstruction. UDS and UA negative. Lipase normal. Otherwise labs are also normal. We will discharge patient home with Bentyl and general instructions on alcohol cessation.. 01/21 10:32 Order name: CBC with Diff; Complete Time: 11:38 sp3 01/21 10:32 Order name: CMP; Complete Time: 11:38 sp3 01/21 10:32 Order name: Lipase; Complete Time: 11:38 sp3 01/21 10:32 Order name: ETOH Level; Complete Time: 11:38 sp3 01/21 11:21 Order name: UDS; Complete Time: 12:10 aa5 01/21 11:21 Order name: Urinalysis w/ reflexes; Complete Time: 12:10 aa5 01/21 11:21 Order name: CT Abd/Pelvis - IV Contrast Only; Complete Time: 11:38 aa5 01/21 10:32 Order name: IV Saline Lock; Complete Time: 10:40 sp3 01/21 10:32 Order name: Labs collected and sent; Complete Time: 10:40 sp3 Administered Medications: 10:50 Drug: NS 0.9% IV 1000 ml IV at 1 bolus Per protocol; 1000 mL bolus Route: IV; Rate: 1 ph bolus; Site: right antecubital; 12:00 Follow up: Response: No adverse reaction; IV Status: Completed infusion; IV Intake: ph 1000ml 10:51 Drug: Ondansetron IVP 4 mg IVP once; over 2 minutes Route: IVP; Site: right antecubital;ph 11:59 Follow up: Response: No adverse reaction ph 10:51 Drug: morphine IVP or IV 4 mg IVP once over 4 mins Route: IVP; Infused Over: 4 mins; ph Site: right antecubital; 11:59 Follow up: Response: No adverse reaction; Pain is unchanged, physician notified; RASS: ph Drowsy (-1) 11:59 Drug: Ketorolac IVP 15 mg IVP once Route: IVP; Site: right antecubital; ph 12:15 Follow up: Response: No adverse reaction ph Disposition Summary: 01/22/24 12:11 Discharge Ordered Notes: Location: Home sp3 Condition: Stable sp3 Diagnosis - Alcohol intoxication, abdominal pain sp3 Followup: sp3 - With: Private Physician - When: Upon discharge from the Emergency Department - Reason: Continuance of care Discharge Instructions: - Discharge Summary Sheet sp3 - Abdominal Pain, Adult sp3 - Alcohol Intoxication sp3 Forms: - Medication Reconciliation Form sp3 - Antibiotic Education sp3 - Prescription Opioid Use sp3 - Patient Portal Instructions sp3 - Leadership Thank You Letter sp3 Prescriptions: - dicyclomine 10 mg Oral capsule - take 1 capsule ORAL route 3 times per day; 15 capsule; Refills: 0, Product sp3 Selection Permitted Signatures: Dispatcher [employer] EDMS Jenn Ford RN RN ph Misael Boland MD MD sp3 LogdaKeith cavazos RN RN tl4 Corrections: (The following items were deleted from the chart) 11:21 10:31 GLUCATNOID ordered. EDMS EDMS 11:21 10:32 Urinalysis+U.LAB.BRZ ordered. EDMS EDMS 11:21 10:32 URINE DRUG SCREEN+UC.LAB.BRZ ordered. EDMS EDMS 11:25 10:32 Abdomen Pelvis W Con+CT.RAD.BRZ ordered. EDMS EDMS 11:53 11:39 Harris ordered. sp3 ph
[2024-01-22 13:25] VITALS: TEMP 97
[2024-01-22 13:26] VITALS: BP 129/87; O2SAT 100
== END 2024-01-22 12:51 | disposition home or self-care (01) ==
LOC: ER 10:25
DX: F10.229 Alcohol dependence with intoxication, unspecified (principal)
CPT/HCPCS: 36415; 74177; 80053; 80307; 81001; 82077; 83690; 85025; 96361; 96374; 96375; 99284; J2405; J7030; Q9967